=== PATIENT | female | born 1995 | race Caucasian/White ===

== ENCOUNTER → 2019-02-20 | Outpatient (REF) | payer MEDICAID ==
[2019-02-20 18:29] LABS: ALBUMIN 3.7 GM/DL (3.2-5.2); ALT/SGPT 30 U/L (12-78); BILIRUBIN,TOTAL 0.6 MG/DL (0.2-1.0); BLOOD UREA NITROGEN 10 MG/DL (7-18); CALCIUM LEVEL 8.9 MG/DL (8.5-10.1); CARBON DIOXIDE LEVEL 26 MEQ/L (21-32); CHLORIDE LEVEL 106 MEQ/L (98-107); CHOLESTEROL LEVEL 121 MG/DL (<200); CHOLESTEROL RISK RATIO 2.372 (<5); CREATININE FOR GFR 0.51 MG/DL (0.55-1.30); FREE T4 1.06 NG/DL (0.76-1.46); GLOMERULAR FILTRATION RATE > 60.0 (>60); GLUCOSE, FASTING 84 MG/DL (70-100); HDL CHOLESTEROL 51 MG/DL (>40); LDL CHOLESTEROL 61 MG/DL (<100); NON-HDL-C 70 MG/DL; SODIUM LEVEL 137 MEQ/L (136-145); TOTAL 25(OH) VITAMIN D 20.9 NG/ML (30.0-100.0); TRIGLYCERIDES LEVEL 43 MG/DL (<150)
[2019-02-20 19:02] LABS: BASO % 0.5 % (0.0-1.0); EOS # 0.2 10^3/uL (0.0-0.5); EOS % 2.4 % (0.0-3.0); HEMOGLOBIN 10.6 g/dl (12.0-15.5); LYMPH % 31.3 % (24.0-44.0); MEAN CORPUSCULAR HEMOGLOBIN 23.3 pg (27.0-33.0); MEAN CORPUSCULAR HGB CONC 30.3 g/dl (32.0-36.5); MEAN CORPUSCULAR VOLUME 76.9 fl (80.0-96.0); MONO # 0.4 10^3/uL (0.0-0.8); MONO % 7.1 % (0.0-5.0); NEUTROPHILS # 3.6 10^3/uL (1.5-8.5); NEUTROPHILS % 58.4 % (36.0-66.0); PLATELET COUNT, AUTOMATED 345 10^3/uL (150-450); RED BLOOD COUNT 4.55 10^6/uL (4.00-5.40); WHITE BLOOD COUNT 6.2 10^3/uL (4.0-10.0)
[2019-02-20 19:09] LABS: HEMOGLOBIN A1c 4.9 %
== END ==
LOC: M LAB REF 16:35
PROVIDERS: ATTEND Nurse Practitioner Family
DX: Z13.9 Encounter for screening, unspecified (principal)

== ENCOUNTER → 2019-05-30 | Outpatient (REF) | payer OTHER, MEDICAID ==
[2019-05-30 20:05] LABS: BASO # 0.1 10^3/uL (0.0-0.2); BASO % 0.8 % (0.0-1.0); EOS # 0.4 10^3/uL (0.0-0.5); EOS % 5.2 % (0.0-3.0); HEMOGLOBIN 9.8 g/dl (12.0-15.5); LYMPH # 2.7 10^3/uL (1.5-5.0); LYMPH % 34.8 % (24.0-44.0); MEAN CORPUSCULAR HEMOGLOBIN 21.9 pg (27.0-33.0); MEAN CORPUSCULAR HGB CONC 29.7 g/dl (32.0-36.5); MEAN CORPUSCULAR VOLUME 73.7 fl (80.0-96.0); MONO # 0.7 10^3/uL (0.0-0.8); MONO % 8.5 % (0.0-5.0); NEUTROPHILS % 50.3 % (36.0-66.0); PLATELET COUNT, AUTOMATED 381 10^3/uL (150-450); RED BLOOD COUNT 4.48 10^6/uL (4.00-5.40); WHITE BLOOD COUNT 7.9 10^3/uL (4.0-10.0)
[2019-05-30 20:13] LABS: ALBUMIN 3.7 GM/DL (3.2-5.2); ALT/SGPT 30 U/L (12-78); BILIRUBIN,TOTAL 0.4 MG/DL (0.2-1.0); BLOOD UREA NITROGEN 12 MG/DL (7-18); CALCIUM LEVEL 8.8 MG/DL (8.5-10.1); CARBON DIOXIDE LEVEL 28 MEQ/L (21-32); CHLORIDE LEVEL 105 MEQ/L (98-107); CREATININE FOR GFR 0.59 MG/DL (0.55-1.30); FERRITIN 3 NG/ML (8-252); GLOMERULAR FILTRATION RATE > 60.0 (>60); GLUCOSE, FASTING 88 MG/DL (70-100); IRON (FE) 16 UG/DL (50-170); PERCENT SATURATION 3.4 % (13.2-45.0); POTASSIUM SERUM 3.8 MEQ/L (3.5-5.1); SODIUM LEVEL 138 MEQ/L (136-145); TOTAL IRON BINDING CAPACITY 469 UG/DL (250-450); TOTAL PROTEIN 7.5 GM/DL (6.4-8.2)
[2019-05-30 20:22] LABS: FOLATE 21.5 NG/ML; VITAMIN B12 LEVEL 504 PG/ML
== END ==
LOC: M LAB REF 19:11
PROVIDERS: ATTEND Nurse Practitioner Family
DX: Z13.9 Encounter for screening, unspecified (principal); N92.1 Excessive and frequent menstruation with irregular cycle; R11.0 Nausea; R42 Dizziness and giddiness; D50.0 Iron deficiency anemia secondary to blood loss (chronic); J45.909 Unspecified asthma, uncomplicated

== ENCOUNTER → 2019-09-19 | Outpatient (REF) | payer OTHER, SELFPAY ==
[2019-09-19 12:51] LABS: BASO # 0.1 10^3/uL (0.0-0.2); BASO % 0.9 % (0.0-1.0); EOS # 0.2 10^3/uL (0.0-0.5); EOS % 4.3 % (0.0-3.0); HEMATOCRIT 30.2 % (36.0-47.0); LYMPH % 36.1 % (24.0-44.0); MEAN CORPUSCULAR HEMOGLOBIN 21.6 pg (27.0-33.0); MEAN CORPUSCULAR HGB CONC 29.8 g/dl (32.0-36.5); MEAN CORPUSCULAR VOLUME 72.6 fl (80.0-96.0); MONO # 0.5 10^3/uL (0.0-0.8); MONO % 8.5 % (0.0-5.0); NEUTROPHILS # 2.8 10^3/uL (1.5-8.5); PLATELET COUNT, AUTOMATED 320 10^3/uL (150-450); RED BLOOD COUNT 4.16 10^6/uL (4.00-5.40); WHITE BLOOD COUNT 5.6 10^3/uL (4.0-10.0)
[2019-09-19 13:18] LABS: ALBUMIN 3.4 GM/DL (3.2-5.2); ALT/SGPT 29 U/L (12-78); BILIRUBIN,TOTAL 0.9 MG/DL (0.2-1.0); BLOOD UREA NITROGEN 12 MG/DL (7-18); CALCIUM LEVEL 8.4 MG/DL (8.5-10.1); CARBON DIOXIDE LEVEL 24 MEQ/L (21-32); CHLORIDE LEVEL 107 MEQ/L (98-107); FERRITIN 3 NG/ML (8-252); FOLATE 15.7 NG/ML; GLOMERULAR FILTRATION RATE > 60.0 (>60); GLUCOSE, FASTING 85 MG/DL (70-100); IRON (FE) 32 UG/DL (50-170); PERCENT SATURATION 6.5 % (13.2-45.0); POTASSIUM SERUM 3.8 MEQ/L (3.5-5.1); SODIUM LEVEL 139 MEQ/L (136-145); TOTAL IRON BINDING CAPACITY 495 UG/DL (250-450); TOTAL PROTEIN 7.3 GM/DL (6.4-8.2)
[2019-09-19 15:24] LABS: VITAMIN B12 LEVEL 498 PG/ML
== END ==
LOC: M LAB REF 11:36
PROVIDERS: ATTEND Nurse Practitioner Family
DX: D50.8 Other iron deficiency anemias (principal); N92.1 Excessive and frequent menstruation with irregular cycle; R42 Dizziness and giddiness; D50.0 Iron deficiency anemia secondary to blood loss (chronic); Z13.9 Encounter for screening, unspecified

== ENCOUNTER → 2019-10-13 | Outpatient (CLI) | payer OTHER ==
[~2019-10-13] MED LIST: CELE40TA PO
[2019-10-13 11:15] LABS: HEMATOCRIT 29.9 % (36.0-47.0); HEMOGLOBIN 8.8 g/dl (12.0-15.5); MEAN CORPUSCULAR HEMOGLOBIN 21.1 pg (27.0-33.0); MEAN CORPUSCULAR HGB CONC 29.4 g/dl (32.0-36.5); MEAN CORPUSCULAR VOLUME 71.5 fl (80.0-96.0); PLATELET COUNT, AUTOMATED 332 10^3/uL (150-450); RED BLOOD COUNT 4.18 10^6/uL (4.00-5.40)
== END ==
LOC: M PLALAB 09:36
PROVIDERS: ATTEND Obstetrics & Gynecology
DX: N93.9 Abnormal uterine and vaginal bleeding, unspecified (principal)

== ENCOUNTER → 2019-10-20 | Outpatient (CLI) | payer OTHER ==
--- NOTE | 2019-10-20 17:27 | REP ---
PELVIC SONOGRAPHY: HISTORY: Abnormal uterine bleeding. FINDINGS: Transabdominal and transvaginal scanning are performed. Uterine dimensions are mildly prominent measuring 8.1 x 5.5 x 6.4 cm. The uterus is retroverted. IUD is confirmed in good position on 3D acquisition. No focal uterine mass is seen. The visualized bladder muñoz are smooth. There is some fluid visible in the cul-de-sac. The right ovary measures 4.5 x 2.5 x 2.4 cm. It contains a 2.4 x 1.8 x 1.5 cm hypoechoic follicle cyst. The left ovary measures 2.9 x 2.0 x 1.8 cm. It has a normal appearance. Doppler flow is confirmed in both ovaries. Resistive indices are 0.56 on the right and 0.53 on the left. Visualized bladder muñoz are smooth. IMPRESSION: Retroverted retroflexed uterus. IUD in good position. 2.4 cm hypoechoic follicle cyst right ovary. There is some cul-de-sac fluid consistent with physiologic fluid.
== END ==
LOC: M WHC 13:05
PROVIDERS: ATTEND Obstetrics & Gynecology
DX: N93.9 Abnormal uterine and vaginal bleeding, unspecified (principal); N83.291 Other ovarian cyst, right side; Z97.5 Presence of (intrauterine) contraceptive device

== ENCOUNTER 2019-11-02 07:39 | Outpatient (CLI) | payer OTHER ==
[~2019-11-02] VITALS: Ht 154.9 cm; Wt 79.8 kg
[2019-11-02 07:48] VITALS: BP 106/51
[2019-11-02] MEDS ORDERED: IRON SUCROSE 200 MG in NS 100 ML OVER 1 HR IV ONE (08:00)
[2019-11-02 10:05] VITALS: BP 111/52
== END 2019-11-02 10:05 | disposition home or self-care (01) ==
LOC: M INFU 07:39
PROVIDERS: ATTEND Specialist
DX: D50.9 Iron deficiency anemia, unspecified (principal)
CPT/HCPCS: 96365; J1756

== ENCOUNTER → 2019-11-13 | Outpatient (CLI) | payer OTHER ==
--- NOTE | 2019-11-13 14:19 | REP ---
Clinical: Left wrist pain Technique: AP, lateral, bilateral oblique views left wrist . Findings: The carpal bones, surrounding osseous structures, soft tissues, and joint spaces are normal. There is no evidence for acute fracture or dislocation. No subcutaneous emphysema or radiodense foreign body. Impression: Normal left wrist series. No acute fracture or dislocation Electronically Signed by Diaz Do MD 11/13/2019 02:11 P
== END ==
LOC: M WUC 13:03
PROVIDERS: ATTEND Physician Assistant
DX: M25.532 Pain in left wrist (principal)

== ENCOUNTER → 2019-12-26 | Outpatient (REF) | payer OTHER ==
[2019-12-26 14:00] LABS: BASO % 0.7 % (0.0-1.0); EOS # 0.2 10^3/uL (0.0-0.5); EOS % 3.4 % (0.0-3.0); HEMATOCRIT 39.9 % (36.0-47.0); HEMOGLOBIN 12.8 g/dl (12.0-15.5); LYMPH # 1.8 10^3/uL (1.5-5.0); LYMPH % 31.2 % (24.0-44.0); MEAN CORPUSCULAR HEMOGLOBIN 26.8 pg (27.0-33.0); MEAN CORPUSCULAR HGB CONC 32.1 g/dl (32.0-36.5); MEAN CORPUSCULAR VOLUME 83.6 fl (80.0-96.0); MONO # 0.4 10^3/uL (0.0-0.8); MONO % 7.6 % (0.0-5.0); NEUTROPHILS # 3.3 10^3/uL (1.5-8.5); NEUTROPHILS % 56.8 % (36.0-66.0); PLATELET COUNT, AUTOMATED 313 10^3/uL (150-450); RED BLOOD COUNT 4.77 10^6/uL (4.00-5.40); WHITE BLOOD COUNT 5.8 10^3/uL (4.0-10.0)
[2019-12-26 14:02] LABS: ALBUMIN 3.5 GM/DL (3.2-5.2); ALT/SGPT 40 U/L (12-78); BILIRUBIN,TOTAL 0.9 MG/DL (0.2-1.0); BLOOD UREA NITROGEN 11 MG/DL (7-18); CARBON DIOXIDE LEVEL 27 MEQ/L (21-32); CHLORIDE LEVEL 105 MEQ/L (98-107); CREATININE FOR GFR 0.52 MG/DL (0.55-1.30); FERRITIN 43 NG/ML (8-252); GLOMERULAR FILTRATION RATE > 60.0 (>60); GLUCOSE, FASTING 86 MG/DL (70-100); IRON (FE) 120 UG/DL (50-170); POTASSIUM SERUM 3.9 MEQ/L (3.5-5.1); SODIUM LEVEL 139 MEQ/L (136-145); TOTAL PROTEIN 7.1 GM/DL (6.4-8.2)
[2019-12-26 14:06] LABS: VITAMIN B12 LEVEL 499 PG/ML
== END ==
LOC: M LAB REF 11:33
PROVIDERS: ATTEND Nurse Practitioner Family
DX: D50.8 Other iron deficiency anemias (principal); D50.0 Iron deficiency anemia secondary to blood loss (chronic); M25.561 Pain in right knee; Z13.9 Encounter for screening, unspecified

== ENCOUNTER 2020-02-11 13:08 | Emergency (ER) | payer MEDICAID, OTHER ==
[~2020-02-11] VITALS: Ht 154.9 cm; Wt 82.5 kg
[2020-02-11 13:53] LABS: BASO % 0.5 % (0.0-1.0); EOS # 0.4 10^3/uL (0.0-0.5); HEMATOCRIT 38.7 % (36.0-47.0); HEMOGLOBIN 12.5 g/dl (12.0-15.5); LYMPH # 1.6 10^3/uL (1.5-5.0); LYMPH % 19.7 % (24.0-44.0); MEAN CORPUSCULAR HEMOGLOBIN 28.4 pg (27.0-33.0); MEAN CORPUSCULAR HGB CONC 32.3 g/dl (32.0-36.5); MONO # 0.6 10^3/uL (0.0-0.8); MONO % 6.6 % (0.0-5.0); NEUTROPHILS # 5.6 10^3/uL (1.5-8.5); NEUTROPHILS % 67.7 % (36.0-66.0); PLATELET COUNT, AUTOMATED 267 10^3/uL (150-450); WHITE BLOOD COUNT 8.3 10^3/uL (4.0-10.0)
[2020-02-11 14:16] LABS: ALBUMIN 3.4 GM/DL (3.2-5.2); ALT/SGPT 30 U/L (12-78); BILIRUBIN,DIRECT 0.2 MG/DL (0.0-0.2); BILIRUBIN,TOTAL 0.8 MG/DL (0.2-1.0); BLOOD UREA NITROGEN 13 MG/DL (7-18); CALCIUM LEVEL 8.1 MG/DL (8.5-10.1); CARBON DIOXIDE LEVEL 27 MEQ/L (21-32); CHLORIDE LEVEL 108 MEQ/L (98-107); CREATININE FOR GFR 0.53 MG/DL (0.55-1.30); GLOMERULAR FILTRATION RATE > 60.0 (>60); GLUCOSE, FASTING 95 MG/DL (70-100); LIPASE 78 U/L (73-393); POTASSIUM SERUM 3.7 MEQ/L (3.5-5.1); SODIUM LEVEL 140 MEQ/L (136-145)
--- NOTE | 2020-02-11 15:27 | REPVR ---
PROCEDURE INFORMATION: Exam: US Pelvis Complete, Transabdominal and US Pelvis, Transvaginal Exam date and time: 02/11/2020 3:00 PM Age: 25 years old Clinical indication: Pelvic pain; Additional info: Rlq pain x1 month R/O ovarian cyst TECHNIQUE: Imaging protocol: Real-time transabdominal and transvaginal pelvic ultrasound (complete) with image documentation. Transvaginal imaging was used for better evaluation of the endometrium, adnexa, and/or cervix. COMPARISON: PELVIS NON-OB COMPLETE US 10/20/2019 1:27 PM FINDINGS: Uterus/cervix: The uterus is not seen as a separate structure. Endovaginally, the uterus is retroverted and retroflexed. Endovaginally, the uterus measures 8.6 x 4.6 by 6.2 centimetres. An IUD is present within the uterus. The endometrial stripe measures 0.8 cm in thickness. Right adnexa: Transabdominally, the right ovary is not seen as a separate structure. Endovaginally, the right ovary measures 3.1 by 4.4 x 2.4 cm and contains a simple follicle which measures 1.9 by 2.4 by 1.8 cmin maximum diameter (previous complex follicle measuring 2.3 x 1.5 x 1.8 cm). There are multiple subcentimeter peripheral follicles. Arterial blood flow demonstrated in the right ovary on pulse Doppler examination. Left adnexa: Transabdominally, the left ovary is not seen as a separate structure. Endovaginally, the left ovary measures 3.5 x 1.7 by 3 cm. Subcentimeter follicles are present in the left ovary. Arterial blood flow demonstrated in the left ovary on pulse Doppler examination. Intraperitoneal space: Small amount of free fluid noted in the posterior cul-de-sac and adjacent to the right ovary. Urinary bladder: Transabdominally, the bladder is poorly distended. IMPRESSION: 1. Simple follicle in the right ovary. The echoes noted within a follicular cyst identified 10/20/2019 are not demonstrated on this examination. I am uncertain whether this represents the same follicular cyst or a new cyst. In any event, no suspicious findings on today's examination. Electronically signed by: Leandra Larson On 02/11/2020 15:27:08 PM
[2020-02-11 15:48] VITALS: BP 117/57
== END 2020-02-11 15:58 | disposition home or self-care (01) ==
LOC: M ED 13:08
DX: R10.31 Right lower quadrant pain (principal); N83.01 Follicular cyst of right ovary; J45.909 Unspecified asthma, uncomplicated; K21.9 Gastro-esophageal reflux disease without esophagitis; E16.2 Hypoglycemia, unspecified; Z97.5 Presence of (intrauterine) contraceptive device

== ENCOUNTER → 2020-04-09 | Outpatient (CLI) | payer OTHER ==
--- NOTE | 2020-04-09 16:26 | REP ---
INDICATION: N83.201 RIGHT OVARIAN CYST. COMPARISON: None. TECHNIQUE: Transabdominal and transvaginal scanning performed. FINDINGS: Uterine dimensions are 9.2 x 5.4 x 6.3 cm. Endometrial echo is obscured by an intrauterine device located in the endometrial canal centrally. The uterus is retroverted. The bladder measures approximately 4.7 x 1.4 cm. The right ovary has dimensions of 3.6 x 1.8 x 2.8 cm. The left ovary dimensions are 3.2 x 1.7 x 1.9 cm. Blood flow is seen in each ovary with duplex Doppler evaluation, with no torsion. Complex cystic structure in the right ovary probably represents a complex dominant follicle 2.3 x 2.1 x 1.7 cm. There is no adnexal mass identified. No free fluid is seen in the cul-de-sac. IMPRESSION: IUD centrally located in the endometrial canal. <Electronically signed by Max Blanco > 04/09/20 [id number]
== END ==
LOC: M WHC 15:31
PROVIDERS: ATTEND Obstetrics & Gynecology
DX: N83.201 Unspecified ovarian cyst, right side (principal); Z97.5 Presence of (intrauterine) contraceptive device

== ENCOUNTER 2020-05-22 12:41 | Emergency (ER) | payer MEDICAID, OTHER ==
[~2020-05-22] VITALS: Ht 154.9 cm; Wt 84.1 kg
--- OUTSIDE RECORDS SUMMARY | 2020-05-22 12:50 | CCD | Continuity of Care Document ---
Author Author Meet WILLSON P.AJannette Organization Unknown Address [address] [place] [address] Phone [phone] Care Team Providers Care Custom Decorating Consultant Name Role Phone India Dawson Minerva COMERP AUTM Johnny Powell RPA-C AUTM [phone] Problems Description No Information Available Social History Type Date Description Comments Sex Unknown ETOH Use Denies alcohol use Tobacco Use Start: Unknown Denies Smoking Smoking Status Reviewed: 12/08/19 Denies Smoking Allergies, Adverse Reactions, Alerts Description No Information Available Medications Description No Information Available Immunizations Description No Information Available Vital Signs Date Vital Result Comment 10/06/2019 3:44pm Body Temperature 97.5 F Height 61 inches 5'1" Weight 168.00 lb BMI (Body Mass Index) 31.7 kg/m2 Results Description No Information Available Procedures Date Code Description Status 02/13/2020 60263 MRI Upper Extremity Any Joint Co mpleted 11/15/2019 21155 Apply Cast Short Arm Completed 10/13/2019 52539 MRI Lower Extremity Any Joint Co mpleted Medical Devices Description No Information Available Encounters Type Date Location Provider Dx Diagnosis Office Visit 04/01/2020 3:45p Fely Whitmore S83.421D Sprain of lateral collateral ligament of right knee, subs Office Visit 03/27/2020 2:15p Fely Whitmore M65.4 Radial styloid tenosynovitis [de Quervain] Office Visit 02/01/2020 3:30p Fely Whitmore M65.4 Radial styloid tenosynovitis [de Quervain] Office Visit 01/03/2020 1:15p [facility] M65.4 Radial styloid tenosynovitis [de Quervain] Office Visit 12/13/2019 10:45a [facility] M65.4 Radial styloid tenosynovitis [de Quervain] Office Visit 12/08/2019 3:00p Shivani Kirkpatrick MD S83. 421A Sprain of lateral collateral ligament of right knee, init Office Visit 11/15/2019 10:45a [place] M65.4 Radial styloid tenosynovitis [de Quervain] Assessments Date Code Description Provider 04/01/2020 S83.421D Sprain of lateral co llateral ligament of right knee, subsequent encounter Griffin Willson, P.A. 03/27/2020 M65.4 Radial styloid tenosynovitis [de Quervain] Griffin Willson, P.A. 02/13/2020 M65.4 Radial styloid tenosynovitis [de Quervain] Griffin Willson, P.A. 02/13/2020 M65.4 Radial styloid tenosynovitis [de Quervain] MRI 02/01/2020 M65.4 Radial styloid tenosynovitis [de Quervain] Griffin Willson, P.A. 01/03/2020 M65.4 Radial styloid tenosynovitis [de Quervain] Griffin Willson, P.A. 12/13/2019 M65.4 Radial styloid tenosynovitis [de Quervain] Griffin Willson, P.A. 12/13/2019 M65.4 Radial styloid tenosynovitis [de Quervain] Griffin Willson, P.A. 12/08/2019 S83.421A Sprain of lateral co llateral ligament of right knee, initial encounter Edwin Kirkpatrick MD 11/15/2019 M65.4 Radial styloid tenosynovitis [de Quervain] Griffin Willson, PJannetteA. 10/13/2019 M25.561 Pain in right knee Edwin harris MD 10/13/2019 M25.561 Pain in right knee MRI Plan of Treatment Future Appointment(s):* 05/08/2020 8:45 am - Fely García at [place] * 04/29/2020 10:15 am - Fely García at [place] 04/01/2020 - Bradley García.* S83.421D Sprain of lateral collateral ligament of right knee, subsequent encounter* Follow up:* prn Functional Status Description No Information Available Mental Status Description No Information Available Referrals Refer to Reason for Referral Status Appt Date Griffin Willson PA MRI APPROVED PER [facility] WEB FOR MRI OF LEFT WRIST (08209) TO MRI. DG Created [facility] [place] [address] [phone] Griffin Willson PA Created [address] [place] [address] [phone] Griffin Willson PA authorization for left wrist physical therapy evaluation [phone], patient coming here. Passed to PT Dept. AC Created [facility] [place] [address] [phone] Griffin Willson PA physical therapy authorizati on for left knee and left wrist. Patient coming here. AC Created [facility] [place] [address] [phone] Griffin Willson PA authorization for physical t herapy evaluation [phone], Left knee. Patient coming here, passed to PT Dept. AC Created [address] [place] [address] [phone] Edwin Kirkpatrick MD MRI RIGHT KNEE AUTH PER WEB, PASSING TO XRAY TRACKER. LM Created [facility] [address] [place] [id number] [phone]
--- OUTSIDE RECORDS SUMMARY | 2020-05-22 12:50 | CCD ---
Continuity of Care Document (CCD) Created on: 04/05/2020 Meet King External Reference #: [id number] : 1995 Sex: Female Author Author Meet WILLSON P.A. Organization Unknown Address [address] [place] [address] Phone [phone] Care Team Providers Care Technician'S Helper Name Role Phone Samir India Minerva COMERP AUTM Johnny Powell RPA-C AUTM [phone] Problems Description No Information Available Social History [...] Available Procedures Date Code Description Status 02/13/2020 76454 MRI Upper Extremity Any Joint Co mpleted 11/15/2019 20895 Apply Cast Short Arm Completed 10/13/2019 88764 MRI Lower Extremity Any Joint Co mpleted 10/06/2019 04063 X-Ray Knee Complete W/Obliques & Tunnel And/Or Standing Views Completed Medical Devices Description No Information Available Encounters Type Date Location Provider Dx Diagnosis Office Visit 03/27/2020 2:15p Fely Whitmore M65.4 Radial styloid tenosynovitis [de Quervain] Office Visit 02/01/2020 3:30p Fely Whitmore M65.4 Radial styloid tenosynovitis [de Quervain] Office Visit 01/03/2020 1:15p [place] M65.4 Radial styloid tenosynovitis [de Quervain] Office Visit 12/13/2019 10:45a Nick Whitmore.A. M65.4 Radial styloid tenosynovitis [de Quervain] Office Visit 12/08/2019 3:00p Shivani Kirkpatrick MD S83. 422A Sprain of lateral collateral ligament of left knee, init Office Visit 11/15/2019 10:45a [place] M65.4 Radial styloid tenosynovitis [de Quervain] Office Visit 10/06/2019 3:15p Shivani Kirkpatrick MD M25. 561 Pain in right knee Assessments Date Code Description Provider 04/01/2020 S83.422D Sprain of lateral co llateral ligament of left knee, subsequent encounter Griffin Willson, P.A. 03/27/2020 [...] tenosynovitis [de Quervain] Griffin Willson, P.A. 12/08/2019 S83.422A Sprain of lateral co llateral ligament of left knee, initial encounter Edwin Kirkpatrick MD 11/15/2019 M65.4 Radial styloid tenosynovitis [de Quervain] Fely García 10/13/2019 M25.561 Pain in right knee Edwin harris MD 10/13/2019 M25.561 Pain in right knee MRI 10/06/2019 M25.561 Pain in right knee Edwin harris MD Plan of Treatment Future Appointment(s):* 05/08/2020 8:45 am - Fely García at [place] * 04/29/2020 10:15 am - Fely García at [place] 04/01/2020 - Fely García* S83.422D Sprain of lateral collateral ligament of left knee, subsequent encounter* Follow up:* prn Functional Status Description No Information Available Mental Status Description No Information Available Referrals Refer to Dr Reason for Referral Status Appt Date Griffin Willson PA MRI APPROVED PER [facility] WEB FOR MRI OF LEFT WRIST (42897) TO MRI. DG Created [facility] [place] [address] [phone] Griffin Willson PA Created [address] [place] [address] [phone] Griffin Willson PA authorization for left wrist physical therapy evaluation [phone], patient coming here. Passed to PT Dept. AC Created [facility] [place] [address] [phone] Griffin Willson PA physical therapy authorizati on for left knee and left wrist. Patient coming here. AC Created [facility] [place] [address] [phone] Griffin Willson PA authorization for physical t herapy evaluation [phone], Left knee. Patient coming here, passed to PT Dept. AC Created [facility] [place] [address] [phone] Edwin Kirkpatrick MD MRI RIGHT KNEE AUTH PER WEB, PASSING TO XRAY TRACKER. LM Created [address] [facility] [id number] [phone]
--- OUTSIDE RECORDS SUMMARY | 2020-05-22 12:50 | CCD ---
Author Author [facility] Organization [facility] Address Unknown Phone Unavailable Care Team Providers Care Educational Audiologist Name Role Phone Robi Barnes Unavailable PROBLEMS Type Condition ICD9-CM Code VLI12-ES Code Onset Dates Condition S tatus SNOMED Code Notes Problem Abnormal uterine bleeding (AUB) N93.9 Active [id number] ALLERGIES No Known Allergies ENCOUNTERS from 1993 to 2020-04-17 Encounter Location Date Provider Diagnosis [facility] [address] [place] [id number] Mar, Robi Barnes Right ovarian cyst N 83.201 and Pelvic pain R10.2 IMMUNIZATIONS No Information SOCIAL HISTORY Tobacco Use: Social History Observation Description Date Details (start date - stop date) Never Smoker Sex Assigned At : Social History Observation Description Sex Assigned At Unknown Language: Question Answer Notes Languages spoken: Both Thai and Bengali Alcohol Screening: Question Answer Notes Did you have a drink containing alcohol in the past year? Ye s Points 1 Interpretation Negative How often did you have six or more drinks on one occas ion in the past year? Never (0 points) How many drinks did you have on a typica l day when you were drinking in the past year? 1 or 2 (0 points) How often did you have a drink containing alcohol in t he past year? Monthly or less (1 point) Tobacco Use: Question Answer Notes Are you a: never smoker REASON FOR REFERRAL No Information VITAL SIGNS Weight 185.8 lbs Mar, Weight-kg 84.28 kg Mar, Height 61 in Mar, BMI 35.1 kg/m2 Mar, Blood pressure systolic 116 mm Hg Mar, Blood pressure diastolic 72 mm Hg Mar, MEDICATIONS Medication SIG (Take, Route, Frequency, Duration) Notes Start Da te End Date Status Paragard Intrauterine Copper - as directed Intrauterine Not-Taking Citalopram Hydrobromide 20 MG 1 tablet Orally Once a day Active TraZODone HCl 50 MG 1 tablet at bedtime as needed Orally Once a day Active Ibuprofen 800 MG 1 tablet with food or milk as needed Ora lly Three times a day Mar, Active Ultram 50 MG 1 tablet as needed Orally BID PRN Mar, 0 Active Mirena (52 MG) 20 MCG/24HR as directed Intrauterine Active PROCEDURES No Information RESULTS No Results REASON FOR VISIT FOLLOW UP MEDICAL (GENERAL) HISTORY Type Description Date Medical History asthma Medical History anemia Medical History tendonitis Medical History anxiety Surgical History Hospitalization History childbirth Goals Section No Information Health Concerns No Information MEDICAL EQUIPMENT No Information MENTAL STATUS No Information FUNCTIONAL STATUS No Information ASSESSMENTS Encounter Date Diagnosis Assessment Notes Treatment Notes Treatm ent Clinical Notes Mar, Right ovarian cyst (ICD-10 - N83.201) Recommend expectant management for now. Interval change/decrease in right ovarian cyst size compared to previous. Ibuprofen and Tramadol for pain control PRN. Risk of malignancy is low and this was reviewed with patient to offer some reassurance. Mar, Pelvic pain (ICD-10 - R10.2) PLAN OF TREATMENT Medication Medication Name Sig Start Date Stop Date Ibuprofen 800 MG 1 tablet with food or milk as needed Ora lly Three times a day Mar, Ultram 50 MG 1 tablet as needed Orally BID PRN Mar, Treatment Notes Assessment Notes Clinical Notes Right ovarian cyst Recommend expectant management for now. Interval change/decrease in right ovarian cyst size compared to previous. Ibuprofen and Tramadol for pain control PRN. Risk of malignancy is low and this was reviewed with patient to offer some reassurance. Next Appt Details Provider Name:Kayy Montana, 2020-06-12 01:40:00 PM, [address] [place], [address], Insurance Providers Payer Name Payer Address Payer Phone Insured Name Patient Relati onship to Insured Coverage Start Date Coverage End Date [facility] COMMUNITY PLAN [employer] [address] [facility] [phone] SAAD LEIGH self
--- OUTSIDE RECORDS SUMMARY | 2020-05-22 12:50 | CCD | Continuity of Care Document ---
Author Author Meet WILLSON P.A. Organization Unknown Address [address] [place] [address] Phone [phone] Care Team Providers Care Plastic Parts Fabricator Name Role Phone India Dawson Minerva COMERP AUTM Johnny Powell RPA-C AUTM [phone] Problems Description No Information Available Social History [...] Available Procedures Date Code Description Status 02/13/2020 11006 MRI Upper Extremity Any Joint Co mpleted 11/15/2019 65285 Apply Cast Short Arm Completed 10/13/2019 60665 MRI Lower Extremity Any Joint Co mpleted 10/06/2019 11516 X-Ray Knee Complete W/Obliques & Tunnel And/Or Standing Views Completed Medical Devices Description No Information Available Encounters Type Date Location Provider Dx Diagnosis Office Visit 02/01/2020 3:30p Fely Whitmore M65.4 Radial styloid tenosynovitis [de Quervain] Office Visit 01/03/2020 1:15p Fely Whitmore M65.4 Radial styloid tenosynovitis [de Quervain] Office Visit 12/13/2019 10:45a [facility]. M65.4 Radial styloid tenosynovitis [de Quervain] Office Visit 12/08/2019 3:00p Shivani Kirkpatrick MD S83. 422A Sprain of lateral collateral ligament of left knee, init Office Visit 11/15/2019 10:45a [facility] P.A. M65.4 Radial styloid tenosynovitis [de Quervain] Office Visit 10/06/2019 3:15p Shivani Kirkpatrick MD M25. 561 Pain in right knee Assessments Date Code Description Provider 03/27/2020 M65.4 Radial styloid tenosynovitis [de Quervain] [...] styloid tenosynovitis [de Quervain] Griffin Willson, P.A. 10/13/2019 M25.561 Pain in right knee Edwin harris MD 10/13/2019 M25.561 Pain in right knee MRI 10/06/2019 M25.561 Pain in right knee Edwin harris MD Plan of Treatment Future Appointment(s):* 04/01/2020 3:45 pm - Fely García at [facility] 03/27/2020 - Fely García* M65.4 Radial styloid tenosynovitis [de Quervain]* Follow up:* in 4-5 weeks for lt wrist recheck Functional Status Description No Information Available Mental Status Description No Information Available Referrals Refer to Dr Reason for Referral Status Appt Date Griffin Willson PA MRI APPROVED PER [facility] WEB FOR MRI OF LEFT WRIST (82234) TO MRI. DG Created [facility] [place] [address] [phone] Griffin Willson PA Created [address] [place] [address] [phone] Griffin Willson PA authorization for left wrist physical therapy evaluation [phone], patient coming here. Passed to PT Dept. AC Created [address] [place] [address] [phone] Griffin Willson PA physical therapy authorizati on for left knee and left wrist. Patient coming here. AC Created [facility] [place] [address] [phone] Griffin Willson PA authorization for physical t herapy evaluation [phone], Left knee. Patient coming here, passed to PT Dept. AC Created [address] [place] [address] [phone] Edwin Kirkpatrick MD MRI RIGHT KNEE AUTH PER WEB, PASSING TO XRAY TRACKER. LM Created [facility] [place] [address] [phone]
--- OUTSIDE RECORDS SUMMARY | 2020-05-22 12:50 | CCD ---
Author Author [facility] Organization [facility] Address Unknown Phone Unavailable Care Team Providers Care Coremaker Name Role Phone Barnes, Robi Unavailable PROBLEMS Type Condition ICD9-CM Code [id number] Code Onset Dates Condition S tatus SNOMED Code Notes Problem Abnormal uterine bleeding (AUB) N93.9 Active [id number] ALLERGIES No Known Allergies ENCOUNTERS from 1993 to 2020-03-12 Encounter Location Date Provider Diagnosis [facility] [address] [place] [phone] Feb, Robi Barnes Right ovarian cyst N 83.201 IMMUNIZATIONS No Information SOCIAL HISTORY Tobacco Use: Social History Observation Description Date Details (start date - stop date) Never Smoker Sex Assigned At : Social History Observation Description Sex Assigned At Unknown Alcohol Screening: Question Answer Notes Did you [...] FOR REFERRAL No Information VITAL SIGNS Weight 183.8 lbs Feb, Height 61 in Feb, BMI 34.72 kg/m2 Feb, Blood pressure systolic 118 mm Hg Feb, Blood pressure diastolic 74 mm Hg Feb, MEDICATIONS Medication SIG (Take, Route, Frequency, Duration) Notes Start Da te End Date Status Mirena (52 MG) 20 MCG/24HR as directed Intrauterine Active Paragard Intrauterine Copper - as directed Intrauterine Not-Taking PROCEDURES No Information RESULTS No Results REASON FOR VISIT OVARIAN CYST MEDICAL (GENERAL) HISTORY Type Description Date Medical History asthma Medical History anemia Medical History tendonitis Surgical History Hospitalization History childbirth Goals Section No Information Health Concerns No Information MEDICAL EQUIPMENT No Information MENTAL STATUS No Information FUNCTIONAL STATUS No Information ASSESSMENTS Encounter Date Diagnosis Assessment Notes Treatment Notes Treatm ent Clinical Notes Feb, Right ovarian cyst (ICD-10 - N83.201) Plan is to continue with expectant management. Pelvic US overall unremarkable and consistent with benign cyst / follicle. Repeat US ordered (8 weeks from previous) PLAN OF TREATMENT Treatment Notes Assessment Notes Clinical Notes Right ovarian cyst Plan is to continue with expectant management. Pelvic US overall unremarkable and consistent with benign cyst / follicle. Repeat US ordered (8 weeks from previous) Treatment Notes Test Name Order Date [facility] Pelvis non-OB COMPLETE US 2020-03-12 Next Appt Details Provider Name:Robi Barnes, 11:20:00 AM, [address] [place], [address], Insurance Providers Payer Name Payer Address Payer Phone Insured Name Patient Relati onship to Insured Coverage Start Date Coverage End Date [facility] COMMUN[facility] PLAN [facility] [address] [facility] [phone] SAAD LEIGH self
--- OUTSIDE RECORDS SUMMARY | 2020-05-22 12:50 | CCD | Continuity of Care Document ---
Author Author Meet MAYES Organization Unknown Address [address] [place] [address], [address] [address] Phone [phone] Care Team Providers Care Director Talent Acquisition Name Role Phone India Dawson Minerva COMERP AUTM Johnny Powell RPA-C AUTM [phone] Problems Description No Information Available Social History [...] Available Procedures Date Code Description Status 02/13/2020 21195 MRI Upper Extremity Any Joint Co mpleted 11/15/2019 45515 Apply Cast Short Arm Completed 10/13/2019 14033 MRI Lower Extremity Any Joint Co mpleted 10/06/2019 83543 X-Ray Knee Complete W/Obliques & Tunnel And/Or Standing Views Completed Medical Devices Description No Information Available Encounters Type Date Location Provider Dx Diagnosis Office Visit 02/01/2020 3:30p Fely Whitmore M65.4 Radial styloid tenosynovitis [de Quervain] Office Visit 01/03/2020 1:15p Fely Whitmore M65.4 Radial styloid tenosynovitis [de Quervain] [facility] M[facility] Radial styloid tenosynovitis [de Qu[facility]] Office Visit 12/08/2019 3:00p Shivani Kirkpatrick MD S83. 422A Sprain of lateral collateral ligament of left knee, init Office Visit 11/15[facility]2019 10[facility] M65.4 Radial styloid tenosynovitis [de Quervain] Office Visit 10/06/2019 3:15p Shivani Kirkpatrick MD M25. 561 Pain in right knee Assessments Date Code Description Provider 02/13/2020 M65.4 Radial styloid tenosynovitis [de Quervain] [...] harris MD Plan of Treatment Future Appointment(s):* 03/27/2020 2:15 pm - Griffin Willson, P.A. at [facility] 02/01/2020 - Fely García* M65.4 Radial styloid tenosynovitis [de Quervain]* Follow up:* [facility] BOOK IT with left wrist mri results with [facility] Functional Status Description No Information Available Mental Status Description No Information Available Referrals Refer to Dr Reason for Referral Status Appt Date Griffin Willson PA MRI APPROVED PER [facility] FOR MRI OF LEFT WRIST (44816) TO MRI. DG Created [facility] [place] [address] [phone] Griffin Willson PA Created [address] [place] [address] [phone] Griffin Willson PA authorization for left wrist physical therapy evaluation [phone] [id number], patient coming here. Passed to PT Dept. AC Created [facility] [place] [address] [phone] Griffin Willson PA physical therapy authorizati on for left knee and left wrist. Patient coming here. AC Created [address] [place] [address] [phone] Griffin Willson PA authorization for physical t herapy evaluation [phone] [phone] [id number], Left knee. Patient coming here, passed to PT Dept. AC Created [address] [place] [address] [phone] Edwin Kirkpatrick MD MRI RIGHT KNEE AUTH PER WEB, PASSING TO XRAY TRACKER. LM Created [facility] [place] [address] [phone]
--- OUTSIDE RECORDS SUMMARY | 2020-05-22 12:51 | CCD ---
Author Author [facility] Organization [facility] Address Unknown Phone Unavailable Care Team Providers Care Hobbing Press Operator Name Role Phone MCELHERYOLA, DEENA PA Unavailable Unavailable MCELHERAN, DEENA PA Unavailable Unavailable MCELHERAN, DEENA PA Unavailable Unavailable MCELHERAN, DEENA PA Unavailable Unavailable MCELHERAN, DEENA PA Unavailable Unavailable MCELHERAN, DEENA PA Unavailable Unavailable MCELHERAN, DEENA PA Unavailable Unavailable MCELHERAN, DEENA PA Unavailable Unavailable MCELHERAN, DEENA PA Unavailable Unavailable MCELHERAN, DEENA PA Unavailable Unavailable MCELHERAN, DEENA PA Unavailable Unavailable MCELHERAN, DEENA PA Unavailable Unavailable MCELHERAN, DEENA PA Unavailable Unavailable MCELHERAN, DEENA PA Unavailable Unavailable MCELHERAN, DEENA PA Unavailable Unavailable MCELHERAN, DEENA PA Unavailable Unavailable MCELHERAN, DEENA PA Unavailable Unavailable MCELHERAN, DEENA PA Unavailable Unavailable MCELHERAN, DEENA PA Unavailable Unavailable MCELHERAN, DEENA PA Unavailable Unavailable MCELHERAN, DEENA PA Unavailable Unavailable MCELHERAN, DEENA PA Unavailable Unavailable MCELHERAN, DEENA PA Unavailable Unavailable MCELHERAN, DEENA PA Unavailable Unavailable MCELHERAN, DEENA PA Unavailable Unavailable MCELHERAN, DEENA PA Unavailable Unavailable MCELHERAN, DEENA PA Unavailable Unavailable MCELHERAN, DEENA PA Unavailable Unavailable Samir, A India CORPORATE LAW SPECIALIST Unavailable Unavailable [place], A India CORPORATE LAW SPECIALIST Unavailable Unavailable [place], A India CORPORATE LAW SPECIALIST Unavailable Unavailable [place], A [place] CORPORATE LAW SPECIALIST Unavailable Unavailable [place], A [place] CORPORATE LAW SPECIALIST Unavailable Unavailable [place], A [place] CORPORATE LAW SPECIALIST Unavailable Unavailable [place], A [place] CORPORATE LAW SPECIALIST Unavailable Unavailable [place], A [place] CORPORATE LAW SPECIALIST Unavailable Unavailable [place], A [place] CORPORATE LAW SPECIALIST Unavailable Unavailable [place], A [place] CORPORATE LAW SPECIALIST Unavailable Unavailable [place], A [place] CORPORATE LAW SPECIALIST Unavailable Unavailable [place], A [place] CORPORATE LAW SPECIALIST Unavailable Unavailable [place], A [place] CORPORATE LAW SPECIALIST Unavailable Unavailable [place], A [place] CORPORATE LAW SPECIALIST Unavailable Unavailable [place], A [place] CORPORATE LAW SPECIALIST Unavailable Unavailable [place], A [place] CORPORATE LAW SPECIALIST Unavailable Unavailable [place], A [place] CORPORATE LAW SPECIALIST Unavailable Unavailable [place], A [place] CORPORATE LAW SPECIALIST Unavailable Unavailable [place], A [place] CORPORATE LAW SPECIALIST Unavailable Unavailable [place], A [place] CORPORATE LAW SPECIALIST Unavailable Unavailable [place], A [place] CORPORATE LAW SPECIALIST Unavailable Unavailable [place], A [place] CORPORATE LAW SPECIALIST Unavailable Unavailable [place], A [place] CORPORATE LAW SPECIALIST Unavailable Unavailable [place], A [place] CORPORATE LAW SPECIALIST Unavailable Unavailable [place], A [place] CORPORATE LAW SPECIALIST Unavailable Unavailable [place], A [place] CORPORATE LAW SPECIALIST Unavailable Unavailable [place], A [place] CORPORATE LAW SPECIALIST Unavailable Unavailable ALEXANDER, DARNELL PA Unavailable Unavailable ALEXANDER, DARNELL PA Unavailable Unavailable ALEXANDER, DARNELL PA Unavailable Unavailable ALEXANDER, DARNELL PA Unavailable Unavailable ALEXANDER, DARNELL PA Unavailable Unavailable ALEXANDER, DARNELL PA Unavailable Unavailable ALEXANDER, DARNELL PA Unavailable Unavailable ALEXANDER, DARNELL PA Unavailable Unavailable ALEXANDER, DARNELL PA Unavailable Unavailable ALEXANDER, DARNELL PA Unavailable Unavailable ALEXANDER, DARNELL PA Unavailable Unavailable ALEXANDER, DARNELL PA Unavailable Unavailable ALEXANDER, DARNELL PA Unavailable Unavailable ALEXANDER, DARNELL PA Unavailable Unavailable ALEXANDER, DARNELL PA Unavailable Unavailable ALEXANDER, DARNELL PA Unavailable Unavailable ALEXANDER, DARNELL PA Unavailable Unavailable ALEXANDER, DARNELL PA Unavailable Unavailable ALEXANDER, DARNELL PA Unavailable Unavailable ALEXANDER, DARNELL PA Unavailable Unavailable ALEXANDER, DARNELL PA Unavailable Unavailable ALEXANDER, DARNELL PA Unavailable Unavailable ALEXANDER, DARNELL PA Unavailable Unavailable ALEXANDER, DARNELL PA Unavailable Unavailable ALEXANDER, DARNELL PA Unavailable Unavailable ALEXANDER, DARNELL PA Unavailable Unavailable ALEXANDER, DARNELL PA Unavailable Unavailable ALEXANDER, DARNELL PA Unavailable Unavailable ALEXANDER, DARNELL PA Unavailable Unavailable ALEXANDER, DARNELL PA Unavailable Unavailable ALEXANDER, DARNELL PA Unavailable Unavailable ALEXANDER, DARNELL PA Unavailable Unavailable ALEXANDER, DARNELL PA Unavailable Unavailable ALEXANDER, DARNELL PA Unavailable Unavailable ALEXANDER, DARNELL PA Unavailable Unavailable ALEXANDER, DARNELL PA Unavailable Unavailable ALEXANDER, DARNELL PA Unavailable Unavailable ALEXANDER, DARNELL PA Unavailable Unavailable Samir, India CORPORATE LAW SPECIALIST CORPORATE LAW SPECIALIST Unavailable Unavailable NICOLE SCOTT MD Unavailable Unavailable NICOLE SCOTT MD Unavailable Unavailable NICOLE SCOTT MD Unavailable Unavailable NICOLE SCOTT MD Unavailable Unavailable NICOLE SCOTT MD Unavailable Unavailable NICOLE SCOTT MD Unavailable Unavailable NICOLE SCOTT MD Unavailable Unavailable NICOLE SCOTT MD Unavailable Unavailable NICOLE SCOTT MD Unavailable Unavailable NICOLE SCOTT MD Unavailable Unavailable NICOLE SCOTT MD Unavailable Unavailable NICOLE SCOTT MD Unavailable Unavailable NICOLE SCOTT MD Unavailable Unavailable NICOLE SCOTT MD Unavailable Unavailable NICOLE SCOTT MD Unavailable Unavailable NICOLE SCOTT MD Unavailable Unavailable NICOLE SCOTT MD Unavailable Unavailable NICOLE SCOTT MD Unavailable Unavailable NICOLE SCOTT MD Unavailable Unavailable NICOLE SCOTT MD Unavailable Unavailable NICOLE SCOTT MD Unavailable Unavailable NICOLE SCOTT MD Unavailable Unavailable NICOLE SCOTT MD Unavailable Unavailable NICOLE SCOTT MD Unavailable Unavailable NICOLE SCOTT MD Unavailable Unavailable NICOLE SCOTT MD Unavailable Unavailable NICOLE SCOTT MD Unavailable Unavailable NICOLE SCOTT MD Unavailable Unavailable NICOLE SCOTT MD Unavailable Unavailable NICOLE SCOTT MD Unavailable Unavailable NICOLE SCOTT MD Unavailable Unavailable NICOLE SCOTT MD Unavailable Unavailable NICOLE SCOTT MD Unavailable Unavailable Samir, A [place] CORPORATE LAW SPECIALIST Unavailable Unavailable Samir, A [place] CORPORATE LAW SPECIALIST Unavailable Unavailable Samir, A [place] CORPORATE LAW SPECIALIST Unavailable Unavailable Samir, A [place] CORPORATE LAW SPECIALIST Unavailable Unavailable Samir, A [place] CORPORATE LAW SPECIALIST Unavailable Unavailable Samir, A [place] CORPORATE LAW SPECIALIST Unavailable Unavailable Samir, A [place] CORPORATE LAW SPECIALIST Unavailable Unavailable Samir, A [place] CORPORATE LAW SPECIALIST Unavailable Unavailable Samir, A [place] CORPORATE LAW SPECIALIST Unavailable Unavailable Samir, A [place] CORPORATE LAW SPECIALIST Unavailable Unavailable Samir, A [place] CORPORATE LAW SPECIALIST Unavailable Unavailable Samir, A [place] CORPORATE LAW SPECIALIST Unavailable Unavailable Samir, A [place] CORPORATE LAW SPECIALIST Unavailable Unavailable Samir, A [place] CORPORATE LAW SPECIALIST Unavailable Unavailable Samir, A [place] CORPORATE LAW SPECIALIST Unavailable Unavailable Samir, A [place] CORPORATE LAW SPECIALIST Unavailable Unavailable Samir, A [place] CORPORATE LAW SPECIALIST Unavailable Unavailable Samir, A [place] CORPORATE LAW SPECIALIST Unavailable Unavailable Samir, A [place] CORPORATE LAW SPECIALIST Unavailable Unavailable Samir, A [place] CORPORATE LAW SPECIALIST Unavailable Unavailable Samir, A [place] CORPORATE LAW SPECIALIST Unavailable Unavailable Samir, A [place] CORPORATE LAW SPECIALIST Unavailable Unavailable Samir, A [place] CORPORATE LAW SPECIALIST Unavailable Unavailable Samir, A [place] CORPORATE LAW SPECIALIST Unavailable Unavailable Samir, A [place] CORPORATE LAW SPECIALIST Unavailable Unavailable Samir, A [place] CORPORATE LAW SPECIALIST Unavailable Unavailable Samir, A [place] CORPORATE LAW SPECIALIST Unavailable Unavailable LETTIERE, A DEENA PA Unavailable Unavailable LETTIERE, A DEENA PA Unavailable Unavailable LETTIERE, A DEENA PA Unavailable Unavailable LETTIERE, A DEENA PA Unavailable Unavailable LETTIERE, A DEENA PA Unavailable Unavailable LETTIERE, A DEENA PA Unavailable Unavailable LETTIERE, A DEENA PA Unavailable Unavailable LETTIERE, A DEENA PA Unavailable Unavailable LETTIERE, A DEENA PA Unavailable Unavailable LETTIERE, A DEENA PA Unavailable Unavailable LETTIERE, A DEENA PA Unavailable Unavailable LETTIERE, A DEENA PA Unavailable Unavailable LETTIERE, A DEENA PA Unavailable Unavailable LETTIERE, A DEENA PA Unavailable Unavailable LETTIERE, A DEENA PA Unavailable Unavailable LETTIERE, A DEENA PA Unavailable Unavailable LETTIERE, A DEENA PA Unavailable Unavailable LETTIERE, A DEENA PA Unavailable Unavailable LETTIERE, A DEENA PA Unavailable Unavailable LETTIERE, A DEENA PA Unavailable Unavailable LETTIERE, A DEENA PA Unavailable Unavailable LETTIERE, A DEENA PA Unavailable Unavailable LETTIERE, A DEENA PA Unavailable Unavailable LETTIERE, A DEENA PA Unavailable Unavailable LETTIERE, A DEENA PA Unavailable Unavailable LETTIERE, A DEENA PA Unavailable Unavailable LETTIERE, A DEENA PA Unavailable Unavailable LETTIERE, A EDENA PA Unavailable Unavailable LETTIERE, A DEENA PA Unavailable Unavailable Re-disclosure Warning The records that you are about to access may contain information from federally-assisted alcohol or drug abuse programs. If such information is present, then the following federally mandated warning applies: This information has been disclosed to you from records protected by federal confidentiality rules (42 CFR part 2). The federal rules prohibit you from making any further disclosure of this information unless further disclosure is expressly permitted by the written consent of the person to whom it pertains or as otherwise permitted by 42 CFR part 2. A general authorization for the release of medical or other information is NOT sufficient for this purpose. The Federal rules restrict any use of the information to criminally investigate or prosecute any alcohol or drug abuse patient.The records that you are about to access may contain highly sensitive health information, the redisclosure of which is protected by Article 27-F of the [facility] Public Health law. If you continue you may have access to information: Regarding HIV / AIDS; Provided by facilities licensed or operated by the [facility] Office of Mental Health; or Provided by the [facility] Office for People With Developmental Disabilities. If such information is present, then the following [facility] mandated warning applies: This information has been disclosed to you from confidential records which are protected by state law. State law prohibits you from making any further disclosure of this information without the specific written consent of the person to whom it pertains, or as otherwise permitted by law. Any unauthorized further disclosure in violation of state law may result in a fine or snf sentence or both. A general authorization for the release of medical or other information is NOT sufficient authorization for further disc losure. Encounters Encounter Providers Location Date Indications Data Source(s ) Outpatient [address] [facility] [id number] 04/11/2020 12:00:00 AM EST eCW1 ([facility], [facility]–1983) Outpatient Attender: DEENA SALAZAR Physical Therapy 04/01/2020 02:45:00 PM EST MEDENT ([facility]) Outpatient Attender: DEENA SALAZAR Physical Therapy 03/27/2020 01:15:00 PM EST MEDENT ([facility]) Outpatient [address] [facility] [id number] 02/26/2020 12:00:00 AM EST eCW1 (Formerly [facility], [facility]1983) Outpatient Attender: STACI MAC 02/14/2020 03:49:00 P M EDT [facility] AWILDA VanceBC: [address] [place] [address], Ph. Attender: India SMALL [facility] Medical 02/14/2020 12:00:00 AM EDT SIMÓN ([facility]) Outpatient Attender: India SMALL 02/12/2020 03:3 4:02 PM EDT [facility] Outpatient Attender: STACI SMALL 02/12/2020 03:34:01 P M EDT [facility] Outpatient Attender: DEENA SALAZAR Physical Therapy 02/01/2020 03:30:00 PM EDT MEDENT ([facility]) Outpatient Attender: India SMALL 01/19/2020 06:1 9:02 AM EDT [facility] Outpatient Attender: STACI SMALL 01/14/2020 03:36:02 P M EDT [facility] Outpatient Attender: India SMALL 01/14/2020 03:3 6:01 PM EDT [facility] Outpatient Attender: STACI SMALL 01/14/2020 03:35:00 P M EDT [facility] Outpatient Attender: India SMALL 01/14/2020 03:3 5:00 PM EDT [facility] Outpatient Attender: STACI SMALL 01/03/2020 05:26:04 P M EDT [facility] Outpatient Attender: DEENA SALZAAR Physical Therapy 01/03/2020 01:15:00 PM EDT MED[facility] ([facility]) Outpatient Attender: STACI SMALL 01/02/2020 05:19:01 P M EDT [facility] Outpatient Attender: India SMALL 12/31/2019 02:4 8:01 PM EDT [facility] Outpatient Attender: STACI SMALL 12/25/2019 11:49:00 A M EDT [facility] Outpatient Attender: DEENA SALAZAR Physical Therapy 12/13/2019 10:45:00 AM EDT MED[facility] ([facility]) Office Visit Attender: NICOLE SCOTT MD Physical Therapy 03:00:00 PM EDT MED[facility] ([facility]) Outpatient Attender: STACI MAC 11/15/2019 11:42:00 A M EDT [facility] Outpatient Attender: DEENA SALAZAR Physical Therapy 11/15/2019 10:45:00 AM EDT MED[facility] ([facility]) (WC PROC) [facility] Procedure [address] [place] [address] 11/15/2019 12:00:00 AM EDT eCW1 ([facility]) Outpatient Attender: DARNELL Franciscoa ry 11/13/2019 01:20:00 PM EDT MED[facility] ([facility]) Outpatient [address] [facility] [id number] 10/11/2019 12:00:00 AM EDT eCW1 ([facility]) Outpatient Attender: NICOLE SCOTT MD Physical Therapy 03:15:00 PM EDT MED[facility] ([facility]) Outpatient Attender: STACI MAC 10/03/2019 07:59:52 P M EDT [facility] Outpatient Attender: STACI MAC 10/02/2019 09:00:06 A M EDT [facility] Outpatient Attender: India MAC 10/02/2019 08:5 8:59 AM EDT [facility] Outpatient Attender: STACI MAC 09/27/2019 11:03:00 A M EDT [facility] Outpatient Attender: STACI MAC 09/26/2019 05:01:01 P M EDT [facility] Outpatient Attender: India MAC 09/26/2019 05:0 1:00 PM EDT [facility] Outpatient Attender: STACI MAC 09/24/2019 11:31:02 P M EDT [facility] Outpatient Attender: India MAC 09/24/2019 11:3 1:01 PM EDT [facility] Outpatient Attender: STACI MAC 09/22/2019 08:36:00 A M EDT [facility] Outpatient Attender: STACI SMALL FP 09/19/2019 09:23:00 A M [facility] Outpatient Attender: STACI SMALL FP 09/19/2019 09:19:[address] [facility] Outpatient Attender: STACI COMERP FP 09/19/2019 09:18:[address] [facility] Outpatient Attender: STACI SMALL FP 09/14/2019 11:02:[address] [facility] Outpatient Attender: STACI COMERP FP 08/22/2019 07:56:[address] [facility] Outpatient Attender: STACI MSALL FP 07/03/2019 01:23:00 P [facility] Outpatient Attender: STACI SMALL FP 06/30/2019 09:09:01 A M [facility] Outpatient Attender: India SMALL FP 06/30/2019 09:0 9:00 AM [facility] Outpatient Attender: STACI COMERP FP 06/27/2019 09:34:01 A M [facility] Outpatient Attender: STACI COMERP FP 06/27/2019 08:45:01 A [facility] Outpatient Attender: STACI COMERP FP 06/27/2019 08:40:01 A M [facility] Outpatient Attender: STACI COMERP FP 06/26/2019 02:37:01 P [facility] Outpatient Attender: India SMALL FP 06/26/2019 02:3 6:02 PM [facility] Outpatient Attender: STACI COMERP FP 06/26/2019 02:34:00 P [facility] Outpatient Attender: DEENA galvez 06/09/2019 08:00:00 AM EST MEDENT ([facility]) Outpatient Attender: STACI COMERP FP 06/05/2019 10:12:00 A M [facility] Outpatient Attender: [place] SMALL FP 06/05/2019 05:5 7:02 AM [facility] Outpatient Attender: STACI COMERP FP 05/30/2019 04:50:[address] [facility] Outpatient Attender: STACI Dawson CORPORATE LAW SPECIALIST FP 05/30/2019 04:16:[address] [facility] Outpatient Attender: STACI Dawson CORPORATE LAW SPECIALIST FP 05/30/2019 04:15:[address] [facility] Outpatient Attender: STACI Dawson CORPORATE LAW SPECIALIST FP 05/30/2019 03:20:[address] [facility] Outpatient Attender: STACI Dawson CORPORATE LAW SPECIALIST FP 05/30/2019 03:19:00 P [facility] Outpatient Attender: STACI Dawson CORPORATE LAW SPECIALIST FP 03/29/2019 03:28:01 P [facility] Immunizations Vaccine Date Status Description Data Source(s) This CVX code allows reporting of a vacc ination when formulation is unknown (for example, when recording a Influenza vaccination when noted on a vaccination card) 05/30/2019 12:00:00 AM EST completed 05/30/2019 AUBREE Palma ([facility]) Medications Medication Brand Name Start Date Product Form Dose Route Admi nistrative Instructions Pharmacy Instructions Status Indications Reaction Description Data Source(s) Ibuprofen 800 MG Oral Tablet Ibuprofen 800 MG 04/11/2020 12:00:[address] active Ibuprofen 800 MG eCW1 ([facility]) tramadol hydrochloride 50 MG Oral Tablet [Ultram] Ultram 50 MG Ultram 50 MG 04/11/2020 12:00:00 AM EST 1.0 {tablet_as_needed} active Ultram 50 MG eCW1 ([facility]) Naproxen 500 MG Oral Tablet Naproxen 11/13/2019 12:00:00 AM EDT ORAL active MEDENT ([facility]) Oseltamivir 75 MG Oral Capsule Oseltamivir Phosphate 06/09/2019 12:00:00 AM EST ORAL completed [facility] ([facility]) cetirizine hydrochloride 10 MG Oral Tablet cetirizine 10 mg tablet cetirizine 10 mg tablet completed cetirizine hydrochloride 10 MG Oral Tablet SIMÓN ([facility]) Insurance Providers Payer name Policy type / Coverage type Policy ID Covered constitution party ID Covered constitution party's relationship to adame Policy Adame Plan Information [facility] [id number] [facility] COMM[facility] [id number] SP [id number] [facility] [id number] SP [id number] [facility] [id number] SP [id number] [facility] Essential Plan P [id number] S [id number] SELF PAY ONLY 0 SP 0 Self Pay P [id number] S [id number] MEDICAID [id number] SP [id number] [facility] [id number] SP [id number] [facility] [id number] SP [id number] Self Pay P UNAVAILABLE S UNAVAILA BLE [facility] Care [facility] Community Plan P [id number] S [id number] [facility] Care [facility] Community Plan P [id number] S [id number] Medicaid S [id number] S [id number] Medicaid P [id number] Problems, Conditions, and Diagnoses Code Display Name Description Problem Type Effective Dates Data Source(s) J30.2 Other seasonal allergic rhinitis Other seasonal allerg ic rhinitis 01/03/2020 05:24:17 PM EDT [facility] N93.9 [id number] Abnormal uterine bleeding (AUB) Problem 10/11/2019 12:00:00 AM EDT eCW1 ([facility]) V65.8 Person consulting for explanation of exa mination or test findings Person consulting for explanation of examination or test findings 10/02/2019 08:58:23 AM EDT [facility] [id number] Patient asked to attend Patient Asked to Attend Proble m 09/26/2019 12:00:00 AM EDT SIMÓN ([facility]) D50.8 Other iron deficiency anemias Other iron deficiency an emias 06/27/2019 09:33:57 AM EST [facility] [id number] Iron deficiency anemia secondary to inad equate dietary iron intake Iron Deficiency Anemia Secondary to Inadequate Dietary Iron Intake Problem 06/27/2019 12:00:00 AM EST SIMÓN ([facility]) 626.6 Excessive and frequent menstruation with irregular cycle Excessive and frequent menstruation with irregular cycle 05/30/2019 04:49: 19 PM EST [facility] 787.02 Nausea Nausea 05/30/2019 04:49:19 PM ES [facility] 780.4 Dizziness Dizziness 05/30/2019 04:49:19 PM RAJIV Morales [facility] 280.0 Anemia due to blood loss Anemia due to blood loss 05/30/2019 04:49:[address] [facility] [id number] Finding of regularity of menstrual cycle Finding of Regularity of Menstrual Cycle Problem 05/30/2019 12:00:00 AM CHLOE GR ([facility]) [id number] Nausea Nausea Problem 05/30/2019 12:00:00 AM RAJIV GR ([facility]) [id number] Dizziness and giddiness Dizziness and Giddiness Proble m 05/30/2019 12:00:00 AM CHLOE GR ([facility]) [id number] Anemia due to chronic blood loss Anemia Due to C hronic Blood Loss Problem 05/30/2019 12:00:00 AM CHLOE GR ([facility]) Surgeries/Procedures Procedure Description Date Indications Data Source(s) MRI Upper Extremity Any Joint 02/13/2020 12:00:00 AM E DT [facility] ([facility] ) APPLICATION CAST ELBOW FINGER SHORT ARM 11/15/2019 12: 00:00 AM EDT [facility] ([facility] ) URINE TEST 11/15/2019 12:00:00 AM EDT eCW1 ([facility]) Medication: Mirena 52 mg (Levonorgestrel -releasing intrauterine contraceptive system) 11/15/2019 12:00:00 AM EDT eCW1 ([facility]) MRI Lower Extremity Any Joint 10/13/2019 12:00:00 AM E DT [facility] ([facility] ) RADIOLOGIC EXAM KNEE COMPLETE 4/MORE VIEWS 10/06/2019 12:00:00 AM EDT [facility] ([facility] ) Results ID Date Data Source [id number] 05/09/2020 12:00:00 AM EST [facility] Name Value Range Interpretation Code Description Data Azul rce(s) Supporting Document(s) Carestart Rapid COVID Antigen Test Positive [facility] This lab was reported by [facility]. ID Date Data Source [id number] 03/27/2020 12:00:00 AM EST [facility] Name Value Range Interpretation Code Description Data Azul rce(s) Supporting Document(s) SARS coronavirus 2 RNA [Presence] in Res piratory specimen by CURTIS with probe detection [facility] This lab was ordered by [facility] and reported by [facility]. ID Date Data Source [id number] 02/11/2020 01:22:00 PM EDT [facility] Name Value Range Interpretation Code Description Data Azul rce(s) Supporting Document(s) HCT 38.7 % 36.0-47.0 N [facility] HGB 12.5 g/dL 12.0-15.5 N [facility] MCH 32.3 G/DL pg 32.0-36.5 N [facility] MCHC 28.4 PG % 27.0-33.0 N [facility] PLATELETS 267 10 10*3/mm3 150-450 N [facility] RBC 4.40 10 10*6/mm3 4.00-5.40 N [facility] RDW 13.0 % 11.5-14.5 N [facility] WBC TOTAL 8.3 4.0-10.0 N [facility] ID Date Data Source [id number] 02/11/2020 01:22:00 PM EDT [facility] Name Value Range Interpretation Code Description Data Azul rce(s) Supporting Document(s) BG FASTING 95 mg/dL 70-100 N [facility] ID Date Data Source [id number] 01/03/2020 04:02:56 PM EDT [facility] Measurements & CalculationsHeight: 62 inches (5 ft. 2 in.) 157.48 cm Weight: 180 pounds 81.82 kg Body Mass Index (BMI): 33.04BMI Interpretation: ObeseBody Surface Area (BSA): 1.83Weight Management Education Done (Nutrition/Physical Activity)Vital SignsTemperature: 98.6FPulse Rate: 85 beats/minuteRespiratory Rate: 14 respirations/minuteBlood Pressure: 101/70 O2 Saturation: 100% Vital Signs performed by: Jennifer Albrecht LPN, January 03, 2020 4:06 PMVital Signs performed by: Jennifer Albrecht LPN, January 03, 2020 4:06 PMInitial Intake Information From: patientRoom #: 13Infectious Disease / Travel ScreeningRecent travel for you or any close contacts? NoHave you had any close contact with anyone diagnosed with or under investigation for COVID-19 (coronavirus)? NoFever? NoRespiratory symptoms: cough, cold, congestion, shortness of breath, difficulty breathing? NoLoss of smell? NoLoss of taste? NoSmoking, Tobacco, Vap ing or Smoke Exposure StatusSmoke Status: never smokerTobacco Use: NoDo you vape? NoPassive Smoke Exposure: NoMenstrual HistoryAny possibility of ? NoComments: IUDHealthcare HistorySince your last office visit...Have you been admitted to the hospital? NoHave you been to an emergency room (ER) or urgent care clinic? NoHave you seen another healthcare provider? NoHave you seen a dentist? NoIntake performed by: Jennifer Albrecht LPN, January 03, 2020 4:44 PMRate Your HealthIn general, would you say your health is? GoodPain AssessmentAre you currently having any pain which... You would like your provider to address? No Affects your activity level? NoDepression Screening - PHQ-2Over the last two weeks, have you... Had little interest or pleasure in doing things? Not at all Been feeling down, depressed, or hopeless? Not at all PHQ-2 Score: 0Anxiety Screening - WILBERT-2Over the last two weeks, have you been... Feeling nervous, anxious, or on edge? Nearly every day Unable to stop or control worrying? Nearly every day WILBERT-2 Score: 6Food InsecurityWithin the past year...Did you worry whether your food would run out before you got money to buy more? Never trueWas there a time when the food you bought didn't last and you didn't have money to get more? Never trueGeneralized Anxiety Disorder 7-Item Screening (WILBERT-7)Answer Guide:0 = Not at all1 = Several days2 = Over half the days3 = Nearly every dayOver the last 2 weeks, how often have you been bothered by the following problems?Feeling nervous, anxious, or on edge: 3Not being able to stop or control worryinWorrying too much about different things: 2Trouble relaxinBeing so restless that it's hard to sit still: 1Becoming easily annoyed or irritable: 1Feeling afraid as if something awful might happen: 0Answer Guide:0 = Not difficult at all1 = Somewhat difficult2 = Very difficult3 = Extremely difficultHow difficult have these made it for you to do your work, take care of things at home, or get along with other people? 0GA D-7 Screening Results WILBERT-2 Score: 6GAD-7 Score: 12Functional Impairment: Not difficult at allRecommendation: Moderate anxietyScreening, Brief Intervention, & Referral to Treatment (SBIRT)Pre-Screening Questions How many times have you have 4 or more drinks in a day? 0How many times have you used an illegal drug or used a prescription medication for a non-medical reason? 0Performed by: Jennifer Albrecht LPN, January 03, 2020 4:46 PMPatient History Medical History:asthmaanemiaSurgical History: section x 1Family History:grandmother- stomach cancergrandfather- diabetesmom asthma, anermiasister- asthmaSocial/Personal History: Chief Complaintfollow-up visit lab results room 13History of Present Illness (HPI)24 YO female here for follow up visit and review of lab results. Pt states taking medications as prescribed.Pt states healthy diet and physical activities. Pt states concerns with seasonal allergy symptoms that have been ongoing for about three weeks. Pt states was seen by binding printer. HPI performed by: [place] SMALL, January 03, 2020 5:11 PMProblem ReviewProblem List was reviewed and/or updated during this visit.Medication Reconciliation & ReviewMedication List was reviewed and/or updated during this visit, including review of any rcde-emo-kuosqmi medications, herbal therapies, and/or supplements.Allergy ReviewAllergy List was reviewed and/or updated during this visit. Patient has no known allergies.Adult Preventive CareProvider Calculated and Reviewed all Clinical Protocols for patient today. Labs/Meds/Other Counseling-Nutrition and Physical Activity:BMI Interpretation: Obese (01/03/2020) Counseling: Done (01/03/2020) Physical Activity: Done (01/03/2020)Cancer Screening Pap Smear/HPV TestingReviewed: Previous Comments: Pt states she had one done in [place] in 2019 (09/26/2019)Today's Comments: Pt Reports was done in 2019Review of Systems General: Denies loss of appetite, chills, dizziness, fatigue, fever, continued fever, headache, feeling ill, sweats, night sweats, sleep disturbances, weight loss. Eyes: Denies blurring of vision, double vision, irritation, discharge, vision loss, eye pain, eye swelling, droopy eyelid, sensitivity to light, redness, itching. Ears/Nose/Throat: Complains of nasal congestion, runny nose. Denies earache, ear discharge, ringing in ears, decreased hearing, nosebleeds, sore throat, hoarseness, difficulty swallowing, dry mouth, tooth pain, bleeding gums, swollen glands. Cardiovascular: Denies chest pain, palpitations, feeling faint, trouble breathing w/exertion, SOB upon lying down, SOB at night, peripheral edema, elevated blood pressure, decreased heart rate. Respiratory: Denies cough, difficulty breathing, shortness of breath, excessive sputum, coughing up blood, wheezing, chest pain. Gastrointestinal: Denies nausea, vomiting, bleeding, burning, itching, irritation, cramps, diarrhea, constipation. Genitourinary: Denies urinary incontinence, pain with urination, burning with urination, urinary frequency, urinary hesitancy, urinary urgency, urinary urgency at night, incomplete emptying, blood in urine, pelvic pain. Musculoskeletal: Denies back pain, joint pain, leg pain, other pain-see comments, joint swelling, body aches, muscle aches, muscle cramps, muscle weakness, stiffness, recent injury. Skin: Denies rash, hives, redness, itching, dryness, nail changes, suspicious lesions, athlete's foot, rash on palms, rash on bottom of feet. Neurologic: Denies muscle impairment, weakness, numbness/tingling, seizures, slurred speech, feeling faint, tremors, vertigo, paralysis on one side, paralysis on both sides. Psychiatric: Denies depression, anxiety, memory loss, mental disturbance, suicidal ideation, homicidal ideation, hallucinations, paranoia, feeling stressed, hearing voices. Endocrine: Denies cold intolerance, heat intolerance, excessive thirst, excessive hunger, excessive urination, weight loss, weight gain. Physical ExamGeneral Appearance: well nourished, well hydrated, no acute distressEyes, External: conjunctivae and lids normal, EOMINasal: nasal congessionRespiratory, Auscultation: clear to auscultation bilaterally; no rales, rhonchi, or wheezesRespiratory, Effort: no intercostal retractions or use of accessory musclesCardiovascular, Auscultation: S1, S2 audible; no murmur, rub, or gallop; RRRPeripheral Circulation: no clubbing, cyanosis, edema, or varicositiesAbdomen: soft, non-tender, no masses, bowel sounds normalGait & Station: normalSkin, Inspection: no rashes, lesions, or ulcerationsOrientation: oriented to time, place, and personMood & Affect: no depression, anxiety, or agitationJudgment & Insight: intactRate Your HealthIn general, would you say your health is? GoodAssessment & Plan Problems:Added: Other seasonal allergic rhinitis (ICD10- J30.2) Assessment: Instructions: We have sent a prescription to your pharmacy today. please take medication as prescribed. Please report any major side effects.Assessed:Person consulting for explanation of examination or test f indings (ICD-V65.8) (JMZ24-G52.2) Assessment: Instructions: We have reviewed your lab results with you today.Please continue healthy diet and physical activities. Please try to maintain adequate intake of water .Other iron deficiency anemias (OBE99-X75.8) Assessment: Pt was seen and evaluated by binding printer. received IV iron infusion. Anemia improved. Instructions: Anemia improved. Please continue to follow with your specialist.Person consulting for explanation of examination or test findings (ICD-V65.8) (BSX77-T97.2) Assessment: Anemia improved.Patient Instructions/Care Plan: Person consulting for explanation of examination or test findings: We have reviewed your lab results with you today.Please continue healthy diet and physical activities. Please try to maintain adequate intake of water .Other seasonal allergic rhinitis: We have sent a prescription to your pharmacy today. please take medication as prescribed. Please report any major side effects.Other iron deficiency anemias: Anemia improved. Please continue to follow with your specialist. Plan developed in collaboration with patient and/or familyMedications:CETIRIZINE HCL 10 MG ORAL TABLETFLONASE ALLERGY RELIEF 50 MCG /ACT NASAL SUSPENSIONALBUTEROL SULFATE HFA 108 (90 BASE) MCG/ACT INHALATION AEROSOL SOLUTIONMedication Changes:New Prescription:FLONASE ALLERGY RELIEF 50 MCG/ACT NASAL SUSPENSION-one spary to each nostril twice daily as needed Qty: 1[Container] Refills: 1 Method: ElectronicCETIRIZINE HCL 10 MG ORAL TABLET- take one tablet by mouth daily Qty: 30[Tablet] Refills: 2 Method: ElectronicAllergies:No Known Allergies (updated 01/03/2020) Orders:Adult - Ofc Vst, EST, Level IV [CPT-05953] Follow-Up Return to clinic: 6-8 weeks for follow up Clinical Visit Summary CompletedMedications:CETIRIZINE HCL 10 MG ORAL TABLET (CETIRIZINE HCL) take one tablet by mouth daily #30[Tablet] x 2 Route:ORAL Entered and Authorized by: India SMALL Method used: Electronically to [facility] [address] (retail) [place] [address] Fax: Note to Pharmacy: Route: ORAL; Indications: OTHER SEASONAL ALLERGIC RHINITIS RxID: [id number] ALLERGY RELIEF 50 MCG/ACT NASAL SUSPENSION (FLUTICASONE PROPIONATE) one spary to each nostril twice daily as needed #1[Container] x 1 Route:NASAL Entered and Authorized by: India SMALL Method used: Electronically to [facility] [address] (retail) [address] [facility] [address] [place] [address] Note to Pharmacy: Route: NASAL; Indications: OTHER SEASONAL ALLERGIC RHINITIS RxID: [id number] signed by India SMALL on 01/19/2020 at 6:18 AM Name Value Range Interpretation Code Description Data Azul rce(s) Supporting Document(s) ID Date Data Source [id number] 12/26/2019 09:53:18 AM EDT [facility] Labs In-House Blood TestsDate/Time Colle cted: December 26, 2019 9:25 AMTest Result Reference Range Normal ValueComments: taken from right ac, tolerated well.Karissa Kenyatta, December 26, 2019 9:53 AMAssessment & Plan Orders:[id number] Vst-Est Level I [CPT-65580] 01604 - Venipuncture [CPT-91081] ____ Name Value Range Interpretation Code Description Data Azul rce(s) Supporting Document(s) ID Date Data Source [id number] 12/26/2019 09:25:00 AM EDT [facility] Name Value Range Interpretation Code Description Data Azul rce(s) Supporting Document(s) BG FASTING 86 mg/dL 70-100 N [facility] ID Date Data Source [id number] 12/26/2019 09:25:00 AM EDT [facility] Name Value Range Interpretation Code Description Data Azul rce(s) Supporting Document(s) HCT 39.9 % 36.0-47.0 N [facility] HGB 12.8 g/dL 12.0-15.5 N [facility] MCH 32.1 G/DL pg 32.0-36.5 N [facility] MCHC 26.8 PG % 27.0-33.0 L [facility] PLATELETS 313 10 10*3/mm3 150-450 N [facility] RBC 4.77 10 10*6/mm3 4.00-5.40 N [facility] RDW 19.7 % 11.5-14.5 H [facility] WBC TOTAL 5.8 4.0-10.0 N [facility] ID Date Data Source WWBC Pelvis non-OB COMPLETE US 10/23/2019 01:49:31 PM EDT eC W1 ([facility]) Name Value Range Interpretation Code Description Data Azul rce(s) Supporting Document(s) WWBC Pelvis non-OB COMPLETE US eCW1 ([facility]) ID Date Data Source TSH 10/23/2019 02:00:25 AM EDT eCW1 ([facility]) Name Value Range Interpretation Code Description Data Azul rce(s) Supporting Document(s) 1.060 THYROID STIMULATING HORMONE eC W1 ([facility]) ID Date Data Source CBC - Complete Blood Count 10/23/2019 02:00:19 AM EDT eCW1 ( [facility]) Name Value Range Interpretation Code Description Data Azul rce(s) Supporting Document(s) 4.18 RED BLOOD COUNT eCW1 ([facility]) 5.0 WHITE BLOOD COUNT eCW1 ([facility]) 21.1 MEAN CORPUSCULAR HEMOGLOBIN eC W1 ([facility]) 29.9 HEMATOCRIT eCW1 ([facility]) 8.8 HEMOGLOBIN eCW1 ([facility]) 71.5 MEAN CORPUSCULAR VOLUME eCW1 ( [facility]) 29.4 MEAN CORPUSCULAR HGB CONC eCW1 ([facility]) 16.3 RED CELL DISTRIBUTION WIDTH eC W1 ([facility]) 332 PLATELET COUNT, AUTOMATED eCW1 ([facility]) ID Date Data Source [id number] 09/26/2019 04:13:37 PM EDT [facility] Measurements & CalculationsHeight: 62 inches (5 ft. 2 in.) 157.48 cm Weight: 174 pounds 6 oz. 79.26 kg Body Mass Index (BMI): 32.01BMI Interpretation: ObeseBody Surface Area (BSA): 1.80Weight Management Education Done (Nutrition/Physical Activity)Vital SignsTemperature: 98.7F oral Pulse Rate: 81 beats/minuteRespirato ry Rate: 18 respirations/minuteBlood Pressure: 126/71 right arm sitting automaticO2 Saturation: 100% room airVital Signs performed by: Jorge Tipton LPN, September 26, 2019 4:29 PMInitial Intake Information From: patientRoom #: 9Infectious Disease / Travel ScreeningRecent travel for you or any close contacts? NoHave you had any close contact with anyone diagnosed with or under investigation for COVID-19 (coronavirus)? NoFever? NoRespiratory symptoms: cough, cold, congestion, shortness of breath, difficulty breathing? NoLoss of smell? NoLoss of taste? NoSmoking, Tobacco, Vaping or Smoke Exposure StatusSmoke Status: never smokerTobacco Use: NoDo you vape? NoPassive Smoke Exposure: NoMenstrual HistoryLast Menstrual Period (LMP): 09/30/2019Any possibility of ? NoComments: IUD Healthcare HistorySince your last office visit...Have you been admitted to the hospital? NoHave you been to an emergency room (ER) or urgent care clinic? NoHave you seen another healthcare p rovider? NoHave you seen a dentist? NoIntake performed by: Jorge Tipton LPN, September 26, 2019 4:15 PMRate Your HealthIn general, would you say your health is? GoodPain AssessmentAre you currently having any pain which... You would like your provider to address? Yes Affects your activity level? YesDepression Screening - PHQ-2Over the last two weeks, have you... Had little interest or pleasure in doing things? Not at all Been feeling down, depressed, or hopeless? Not at all PHQ-2 Score: 0Anxiety Screening - WILBERT-2Over the last two weeks, have you been... Feeling nervous, anxious, or on edge? Not at all Unable to stop or control worrying? Not at all WILBERT-2 Score: 0Food InsecurityWithin the past year...Did you worry whether your food would run out before you got money to buy more? NoWas there a time when the food you bought didn't last and you didn't have money to get more? NoPatient Learning & Communication Needs Preferred learning style: verbalPossible barriers: limited colombian proficiencyPatient's Language used in visit: YesLanguage: SpanishInterpreter services used: YesAssessment of health literacy: AdequatePain AssessmentPain ScaleNumeric Rating Scale: 10 / 10Location: right knee Duration: 2 weeksFrequency: DailyCharacter/Quality: aching, burning, throbbing and pressureIs the pain radiating? NoScreening, Brief Intervention, & Referral to Treatment (SBIRT)Pre-Screening Questions How many times have you have 4 or more drinks in a day? 0How many times have you used an illegal drug or used a prescription medication for a non-medical reason? 0Performed by: Jorge Tipton LPN, September 26, 2019 4:21 PMPatient History Medical History:asthmaanemiaSurgical History: section x 1Family History:grandmother- stomach cancergrandfather- diabetesmom asthma, anermiasister- asthmaSocial/Personal History: Chief Complaintlab results RM 9 History of Present Illness (HPI)24 yo female Pt here today for lab results. Pt states she is having rigth knee pain that started 2-3 weeks ago. Pt states that when she stand for extended periods of time, that is when it hurts the most. Pt states that when she lived in [place] that she had a CT of the knee and was told she had fluid in the knee. Pt states she is currently not having any issues with her medications. Pt states healthy diet and physical activities. HPI performed by: India SMALL, September 26, 2019 4:49 PMProblem ReviewProblem List was reviewed and/or updated during this visit.Medication Reconciliation & ReviewMedication List was reviewed and/or updated during this visit, including review of any ocmt-enc-hbrywgb medications, herbal therapies, and/or supplements.Allergy ReviewAllergy List was reviewed and/or updated during this visit.Adult Preventive CareProvider Calculated and Reviewed all Clinical Protocols for patient today. Labs/Meds/Other Counseling- Nutrition and Physical Activity:BMI Interpretation: Obese (09/26/2019) Counseling: Done (09/26/2019) Physical Activity: Done (09/26/2019)Cancer Screening Pap Smear/HPV TestingReviewed: Previous Comments: would like Pap smear here (06/27/2019)Today's Comments: Pt states she had one done in [place] in 2019Review of Systems General: Denies loss of appetite, chills, dizziness, f atigue, fever, continued fever, headache, feeling ill, sweats, night sweats, sleep disturbances, weight loss. Eyes: Denies blurring of vision, double vision, irritation, discharge, vision loss, eye pain, eye swelling, droopy eyelid, sensitivity to light, redness, itching. Ears/Nose/Throat: Denies earache, ear discharge, ringing in ears, decreased hearing, nasal congestion, nosebleeds, runny nose, sore throat, hoarseness, difficulty swallowing, dry mouth, tooth pain, bleeding gums, swollen glands. Cardiovascular: Denies chest pain, palpitations, feeling faint, trouble breathing w/exertion, SOB upon lying down, SOB at night, peripheral edema, elevated blood pressure, decreased heart rate. Respiratory: Denies cough, difficulty breathing, shortness of breath, excessive sputum, coughing up blood, wheezing, chest pain. Gastrointestinal: Denies nausea, vomiting, bleeding, burning, itching, irritation, cramps, constipation. Genitourinary: Denies urinary incontinence, pain with urination. Musculoskeletal: Complains of joint pain, leg pain, muscle aches. Denies back pain, other pain-see comments, joint swelling, body aches, muscle cramps, muscle weakness, stiffness, recent injury. Skin: Denies rash, hives, redness, itching, dryness, nail changes, suspicious lesions, athlete's foot, rash on palms, rash on bottom of feet. Neurologic: Denies muscle impairment, weakness, numbness/tingling, seizures, slurred speech, feeling faint, tremors, vertigo, paralysis on one side, paralysis on both sides. Psychiatric: Denies depression, anxiety, memory loss, mental disturbance, suicidal ideation, homicidal ideation, hallucinations, paranoia, feeling stressed, hearing voices. Endocrine: Denies cold intolerance, heat intolerance, excessive thirst, excessive hunger, excessive urination, weight loss, weight gain. Heme/Lymphatic: Denies abnormal bruising, bleeding, enlarged lymph nodes. Physical ExamGeneral Appearance: well nourished, well hydrated, no acute distressEyes, External: conjunctivae and lids normal, EOMIRespiratory, Auscultation: clear to auscultation bilaterally; no rales, rhonchi, or wheezesRespiratory, Effort: no intercostal retractions or use of accessory musclesCardiovascular, Auscultation: S1, S2 audible; no murmur, rub, or gallop; RRRPeripheral Circulation: no clubbing, cyanosis, edema, or varicositiesAbdomen: soft, non-tender, no masses, bowel sounds normalGait & Station: normalLower Extremity, Right: right knee slightly swollen. tender on palpationSkin, Inspection: no rashes, lesions, or ulcerationsOrientation: oriented to time, place, and personMood & Affect: no depression, anxiety, or agitationJudgment & Insight: intactRate Your HealthIn general, would you say your health is? GoodAssessment & Plan Problems:Added: Person consulting for explanation of examination or test findings (ICD-V65.8) (YDK70-R22.2) Assessment: Instructions: We have reviewed tour lab results with you today.Assessed:Knee pain, right (ICD-719.46) (ULP69-N42.561) Assessment: Instructions: May take OTC tylenol as needed. Please avoid taking Ibuprofen for now. We have made a referral for you today. We will contact you to set this up.Anemia due to blood loss (ICD-280.0) (POB85-G99.0) Assessment: Pt states upcoming appointment with binding printer 09/27. Instructions: Please start taking you Iron medication three times daily. please continue healthy diet and physical activities please try to include foods rich in iron such as meats, liver and green leafy vegetables. Please try to maintain adequate intake of water daily. Please keep your appointment with [facility].Other iron deficiency anemias (NQP34-L54.8) Assessment: Instructions: Please start taking iron medication three times daily until seen by binding printer.Health Screening (ICD-V70.0) (KMC97-P32.9) Assessment: Instructions: lab results reviewed with you today.Patient Instructions/Care Plan: Knee pain- right: May take OTC tylenol as needed. Please avoid taking Ibuprofen for now. We have made a referral for you today. We will contact you to set this up.Anemia due to blood loss: Please start taking you Iron medication three times daily. please continue healthy diet and physical activities please try to include foods rich in iron such as meats, liver and green leafy vegetables. Please try to maintain adequate intake of water daily. Please keep your appointment with [facility].Other iron deficiency anemias: Please start taking iron medication three times daily until seen by binding printer.Person consulting for explanation of examination or test findings: We have reviewed tour lab results with you adelaide lan.Health Screening: lab results reviewed with you today. Plan developed in collaboration with patient and/or familyMedications:ALBUTEROL SULFATE HFA 108 (90 BASE) MCG/ACT INHALATION AEROSOL SOLUTIONMedication Changes:Removed:FEROSUL 325 (65 FE) MG ORAL TABLET-take one tablet by mouth three daily Qty: 90[Tablet] Refills: 2Allergies:No Known Allergies (updated 06/27/2019) Orders:Orthopaedics Consult [CPT-33224] COMP METABOLIC PANEL [CPT- 11262] CBC W/DIFF [CPT-73996] IRON [CPT-42275] VITAMIN B-12 [CPT-08053] FERRITIN [CPT-07505] Folate (Folic Acid Serum) [CPT-84771] Adult - Ofc Vst, EST, Level IV [CPT-34930] Follow-Up Return to clinic: 3 months for follow up Clinical Visit Summary Completed Name Value Range Interpretation Code Description Data Azul rce(s) Supporting Document(s) ID Date Data Source [id number] 09/19/2019 09:31:25 AM EDT [facility] In-House Blood TestsDate/Time Colle cted: September 19, 2019 9:31 AMTest Result Reference Range Normal ValueComments: blood draw done in offcie done in the right ac tolerated well Evan Pacheco ROSALINDA, September 19, 2019 9:31 AMAssessment & Plan Orders:[id number] Vst-Est Level I [CPT-27248] 14354 - Venipuncture [CPT-77896] Name Value Range Interpretation Code Description Data Azul rce(s) Supporting Document(s) ID Date Data Source [id number] 09/19/2019 09:30:00 AM EDT [facility] Name Value Range Interpretation Code Description Data Azul rce(s) Supporting Document(s) HCT 30.2 % 36.0-47.0 L [facility] HGB 9.0 g/dL 12.0-15.5 L [facility] MCH 29.8 G/DL pg 32.0-36.5 L [facility] MCHC 21.6 PG % 27.0-33.0 L [facility] PLATELETS 320 10 10*3/mm3 150-450 N [facility] RBC 4.16 10 10*6/mm3 4.00-5.40 N [facility] RDW 16.7 % 11.5-14.5 H [facility] WBC TOTAL 5.6 4.0-10.0 N [facility] ID Date Data Source [id number] 09/19/2019 09:30:00 AM EDT [facility] Name Value Range Interpretation Code Description Data Azul rce(s) Supporting Document(s) BG FASTING 85 mg/dL 70-[address] [facility] ID Date Data Source [id number] 06/27/2019 08:48:[address] [facility] Measurements & CalculationsHeight: 62 inches (5 ft. 2 in.) 157.48 cm Weight: 173 pounds 78.64 kg Body Mass Index (BMI): 31.76BMI Interpretation: ObeseBody Surface Area (BSA): 1.80Weight Management Education Done (Nutrition/Physical Activity)Vital SignsTemperature: 98.8FPulse Rate: 85 beats/minuteRespiratory Rate: 14 respirations/minuteBlood Pressure: 99/59 O2 Saturation: 100% Vital Signs performed by: Jennifer Albrecht LPN, June 27, 2019 9:04 AMVital Signs performed by: Jennifer Albrecht LPN, June 27, 2019 9:04 AMInitial Intake Information from: patientRoom #: 12Smoking, Tobacco, Vaping or Smoke Exposure StatusSmoke Status: never smokerTobacco Use: NoDo you vape? NoPassive Smoke Exposure: NoMenstrual HistoryAny possibility of ? NoComments: IUDHealthcare HistorySince your last office visit...Have you been admitted to the hospital? NoHave you been to an emergency room (ER) or urgent care clinic? Yes - [facility] Emergency room (ER) or urgent care date reported today: 06/09/2019Have you seen another healthcare provider? NoHave you seen a dentist? NoRate Your HealthIn general, would you say your health is? ExcellentPain AssessmentAre you currently having any pain which... You would like your provider to address? No Affects your activity level? NoDepression Screening - PHQ-2Over the last two weeks, have you... Had little interest or pleasure in doing things? Not at all Been feeling down, depressed, or hopeless? Not at all PHQ-2 Score: 0Anxiety Screening - WILBERT-2Over the last two weeks, have you been... Feeling nervous, anxious, or on edge? Not at all Unable to stop or control worrying? Not at all WILBERT-2 Score: 0Food InsecurityWithin the past year...Did you worry whether your food would run out before you got money to buy more? NoWas there a time when the food you bought didn't last and you didn't have money to get more? NoInfectious Disease / Travel ScreeningRecent travel for you, your family, and/or any sexual partners? NoScreening, Brief Intervention, & Referral to Treatment (SBIRT)Pre-Screening Questions How many times have you have 4 or more drinks in a day? 0How many times have you used an illegal drug or used a prescription medication for a non-medical reason? 0Performed by: Jennifer Albrecht LPN, June 27, 2019 8:59 AMPatient History Social/Personal History: Chief Complaintanemia c/o headache and sinus ,runny nose and congestion room 12History of Present Illness (HPI)24 yo female here for FU on Anmeia needs meds refilled never got iron tabletsPt states havent started taking iron medication because she never received it from pharmacy. Pt states didnt call clinic to check on script. Pt states havent heard from HOME CARE AIDE's office as yet. Pt states still having some dizziness and fatigue. This may be related to Anemia. Referral made to binding printer. Pt advised to call clinic with any concerns. HPI performed by: [place] SMALL, June 27, 2019 9:13 AMTransitions of Care InboundProblem ReviewProblem List was reviewed and/or updated during this visit.Medication Reconciliation & ReviewMedication List was reviewed and/or updated during this visit, including review of any zqsp-rnl-qxlcatl medications, herbal therapies, and/or supplements.Allergy ReviewAllergy List was reviewed and/or updated during this visit. Patient has no known allergies.Adult Preventive CareProvider Calculated and Reviewed all Clinical Protocols for patient today. Labs/Meds/Other Counseling-Nutrition and Physical Activity:BMI Interpretation: Obese (06/27/2019) Counseling: Done (06/27/2019) Physical Activity: Done (06/27/2019)Cancer Screening Pap Smear/HPV TestingReviewed: Previous Comments: patient [place] 8-10 months ago in [place]. would like a referral to a local data collector. (02/20/2019)Today's Comments: would like Pap smear here Review of Systems General: Complains of dizziness, fatigue. Denies loss of appetite, chills, fever, continued fever, headache, feeling ill, sweats, night sweats, sleep disturbances, weight loss. Eyes: Denies blurring of vision, double vision, irritation, discharge, vision loss, eye pain, eye swelling, droopy eyelid, sensitivity to light, redness, itching. Ears/Nose/Throat: Denies earache, ear discharge, ringing in ears, decreased hearing, nasal congestion, nosebleeds, runny nose, sore throat, hoarseness, difficulty swallowing, dry mouth, tooth pain, bleeding gums, swollen glands. Cardiovascular: Denies chest pain, palpitations, feeling faint, trouble breathing w/exertion, SOB upon lying down, SOB at night, peripheral edema, elevated blood pressure, decreased heart rate. Respiratory: Denies cough, difficulty breathing, shortness of breath, excessive sputum, coughing up blood, wheezing, chest pain. Gastrointestinal: Denies nausea, vomiting, bleeding, burning, itching, irritation, cramps, diarrhea, constipation. Genitourinary: Denies urinary incontinence, pain with urination, burning with urination, urinary frequency, urinary hesitancy, urinary urgency, urinary urgency at night, incomplete emptying. Musculoskeletal: Denies back pain, joint pain, leg pain, joint swelling, body aches, muscle aches, muscle cramps, muscle weakness, stiffness, recent injury. Skin: Denies rash, hives, redness, itching, dryness, nail changes, suspicious lesions, athlete's foot, rash on palms, rash on bottom of feet. Neurologic: Denies muscle impairment, weakness, numbness/tingling, seizures, slurred speech, feeling faint, tremors, vertigo, paralysis on one side, paralysis on both sides. Psychiatric: Denies depression, anxiety, memory loss, mental disturbance, suicidal ideation, homicidal ideation, hallucinations, paranoia, feeling stressed, hearing voices. Endocrine: Denies cold intolerance, heat intolerance, excessive thirst, excessive hunger, excessive urination, weight loss, weight gain. Physical ExamGeneral Appearance: well nourished, well hydrated, no acute distressEyes, External: conjunctivae and lids normal, EOMIRespiratory, Auscultation: clear to auscultation bilaterally; no rales, rhonchi, or wheezesRespiratory, Effort: no intercostal retractions or use of accessory musclesCardiovascular, Auscultation: S1, S2 audible; no murmur, rub, or gallop; RRRPeripheral Circulation: no clubbing, cyanosis, edema, or varicositiesAbdomen: soft, non-tender, no masses, bowel sounds normalGait & Station: normalSkin, Inspection: no rashes, lesions, or ulcerationsOrientation: oriented to time, place, and personMood & Affect: no depression, anxiety, or agitationJudgment & Insight: intactCare Management Plan Transitions of CareInboundRate Your HealthIn general, would you say your health is? ExcellentAssessment & Plan Problems:Added: Other iron deficiency anemias (LHZ62-N82.8) Assessment: Instructions: We have resent your prescription to your pharmacy today. Please take medication as prescribed. Please report any major side effects. Please try to maintain good nutrition and adequate fluid intake. to include 6-8 glasses of water daily. Please try to include foods rich in iron to include lean meats and fruits and green leafy vegetables.We have made a referral to hematology. Wed will contact you to set this up.Other iron deficiency anemias (KSW81-G58.8) Assessment: Referral made to binding printer. pt states on Iron supplements. Pt advised to call clinic with any concerns.Assessed:Anemia due to blood loss (ICD- 280.0) (ZDR08-O90.0) Assessment: Referral made for patient to Women's wellness . Phone number provided for patient to contact HOME CARE AIDE's office.Dizziness (ICD- 780.4) (JOP13-E55) Assessment: Instructions: Please try to maintain adequate fluid intake. Please try to change your position slowly.Excessive and frequent menstruation with irregular cycle (ICD-626.6) (IVP57-S61.1) Assessment: Instructions: Referral was made to [facility] breast care. Please call the office today to set up an appointment. Phone number provided.Health Screening (ICD-V70.0) (HTP63-N39.9) Assessment: Instructions: We have reviewed your lab results with you today.Patient Instructions/Care Plan: Other iron deficiency anemias: We have resent your prescription to your pharmacy today. Please take medication as prescribed. Plea se report any major side effects. Please try to maintain good nutrition and adequate fluid intake. to include 6-8 glasses of water daily. Please try to include foods rich in iron to include lean meats and fruits and green leafy vegetables.We have made a referral to hematology. Wed will contact you to set this up.Dizziness: Please try to maintain adequate fluid intake. Please try to change your position slowly.Excessive and frequent menstruation with irregular cycle: Referral was made to [facility] and breast care. Please call the office today to set up an appointment. Phone number provided.Health Screening: We have reviewed your lab results with you today. Plan developed in collaboration with patient and/or familyMedications:FEROSUL 325 (65 FE) MG ORAL TABLETALBUTEROL SULFATE HFA 108 (90 BASE) MCG/ACT INHALATION AEROSOL SOLUTIONMedication Changes:Refilled:FEROSUL 325 (65 FE) MG ORAL TABLET-take one tablet by mouth three daily Qty: 90[Tablet] Refills: 2 Method: ElectronicChanged:From: ORAL FEROSUL 325 (65 FE) MG ORAL TABLET Qty: [id number] Refills: 90[Tablet] To: FEROSUL 325 (65 FE) MG ORAL TABLET-take one tablet by mouth three daily Qty: 90[Tablet] Refills: 2Allergies:No Known Allergies (updated 06/27/2019) Orders:Hematology Consult [CPT-02636] Adult - Ofc Vst, EST, Level III [CPT-12948] COMP METABOLIC PANEL [CPT-16767] CBC W/DIFF [CPT-71965] VITAMIN B-12 [CPT-90379] IRON [CPT-23657] FERRITIN [CPT-34504] Folate (Folic Acid Serum) [CPT-59505] TIBC [CPT-55813] Follow-Up Return to clinic: 6 -8 weeks for follow up Clinical Visit Summary CompletedMedications:FEROSUL 325 (65 FE) MG ORAL TABLET (FERROUS SULFATE) take one tablet by mouth three daily #90[Tablet] x 2 Route:ORAL Entered and Authorized by: India SMALL Method used: Electronically to [facility]* (retail) [address] [place] [address] Note to Pharmacy: Route: ORAL; Indications: ANEMIA DUE TO BLOOD LOSS RxID: [id number]] Name Value Range Interpretation Code Description Data Azul rce(s) Supporting Document(s) ID Date Data Source [id number] 05/30/2019 04:30:[address] [facility] Name Value Range Interpretation Code Description Data Azul rce(s) Supporting Document(s) HCT 33.0 % 36.0-47.0 L [facility] HGB 9.8 g/dL 12.0-15.5 L [facility] MCH 29.7 G/DL pg 32.0-36.5 L [facility] MCHC 21.9 PG % 27.0-33.0 L [facility] PLATELETS 381 10 10*3/mm3 150-450 N [facility] RBC 4.48 10 10*6/mm3 4.00-5.40 N [facility] RDW 17.0 % 11.5-14.5 H [facility] WBC TOTAL 7.9 4.0-10.0 N [facility] ID Date Data Source [id number] 05/30/2019 04:30:[address] [facility] Name Value Range Interpretation Code Description Data Azul rce(s) Supporting Document(s) BG FASTING 88 mg/dL 70-100 [facility] ID Date Data Source [id number] 05/30/2019 03:54:[address] [facility] Measurements & CalculationsHeight: 62 inches (5 ft. 2 in.) 157.48 cm Weight: 173 pounds 78.64 kg Body Mass Index (BMI): 31.76BMI Interpretation: ObeseBody Surface Area (BSA): 1.80Weight Management Education Done (Nutrition/Physical Activity)Vital SignsTemperature: 97.8F 36.56C oral Pulse Rate: 98 beats/minuteRespiratory Rate: 16 respirations/minuteBlood Pressure: 111/73 right arm sitting automaticO2 Saturation: 100% room airVital Signs performed by: Marie Monterroso MA, May 30, 2019 3:54 PMLabs In-House Blood TestsDate/Time Collected: May 30, 2019 4:57 PMDate/Time Received: May 30, 2019 4:57 PMTest Result Reference Range Normal ValueComments: Blood drawn from Rt AC, pt tolerated well. Lorraine Adame LPN, May 30, 2019 4:57 PMInitial Intake Information from: patientRoom #: 13Infectious Disease- Travel Have you or your sexual partner travelled outside of the country recently? NoSmoking, Tobacco or Smoke Exposure StatusSmoke Status: never smokerTobacco Use: NoPassive Smoke Exposure: NoMenstrual HistoryLast Menstrual Period (LMP): 05/14/2019Any possibility of ? NoHealthcare HistorySince your last office visit...Have you been admitted to the hospital? NoHave you been to an emergency room (ER) or urgent care clinic? NoHave you seen another healthcare provider? Yes - in [place], Have you seen a dentist? NoIntake performed by: Marie Monterroso MA, May 30, 2019 3:57 PMRate Your HealthIn general, would you say your health is? Very GoodPain AssessmentAre you currently having any pain which... You would like your provider to address? No Affects your activity level? NoDepression Screening - PHQ-2Over the last two weeks, have you... Had little interest or pleasure in doing things? Not at all Been feeling down, depressed, or hopeless? Not at all PHQ-2 Score: 0Anxiety Screening - WILBERT-2Over the last two weeks, have you been... Feeling nervous, anxious, or on edge? Not at all Unable to stop or control worrying? Not at all WILBERT-2 Score: 0Infectious Disease- Travel Cont. Any possibility of ? NoScreening, Brief Intervention, & Referral to Treatment (SBIRT)Pre-Screening Questions How many times have you have 4 or more drinks in a day? 0How many times have you used an illegal drug or used a prescription medication for a non-medical reason? 0Performed by: Marie Monterroso MA, May 30, 2019 3:57 PMPatient History Medical History:asthmaanemiaSurgical History: section x 1Family History:grand mother- stomach cancergrandfather- diabetesmom asthma, anermiasister- asthmaSocial/Personal History: Smoking Status: never smokerChief Complaintfollow-up visitHistory of Present Illness (HPI)24 yo female here today for follow up visit and review of lab results. Pt states since 2018, her menstral cylcle have started to become more frequent. Pt states menstral cycles every 12 -16 days for 5-7 days. Pt states last menstral cycle started 05/14 and ended 05/18. Pt states have started intermittent nausea and dizzinss two weeks ago. HPI performed by: [place] COMERP, May 30, 2019 4:19 PMTransitions of Care InboundProblem ReviewProblem List was reviewed and/or updated during this visit.Medication Reconciliation & ReviewMedication List was reviewed and/or updated during this visit, including review of any txyb-rkm-aufqbjl medications, herbal therapies, and/or supplements.Allergy ReviewAllergy List was reviewed and/or updated during this visit.Adult Preventive CareProvider Calculated and Reviewed all Clinical Protocols for patient today. Labs/Meds/Other Counseling-Nutrition and Physical Activity:BMI Interpretation: Obese (05/30/2019) Counseling: Done (05/30/2019) Physical Activity: Done (05/30/2019)Cancer Screening Pap Smear/HPV TestingReviewed: Previous Comments: patient says 8-10 months ago in [place]. would like a referral to a local data collector. (02/20/2019)Review of Systems General: Complains of dizziness. Denies loss of appetite, chills, fatigue, fever, continued fever, headache, feeling ill, sweats, night sweats, sleep disturbances, weight loss. Eyes: Denies blurring of vision, double vision, irritation, discharge, vision loss, eye pain, eye swelling, droopy eyelid, sensitivity to light, redness, itching. Ears/Nose/Throat: Denies earache, ear discharge, ringing in ears, decreased hearing, nasal congestion, nosebleeds, runny nose, sore throat, hoarseness, difficulty swallowing, dry mouth, tooth pain, bleeding gums, swollen glands. Cardiovascular: Denies chest pain, palpitations, feeling faint, trouble breathing w/exertion, SOB upon lying down, SOB at night, peripheral edema, elevated blood pressure, decreased heart rate. Respiratory: Denies cough, difficulty breathing, shortness of breath, excessive sputum, coughing up blood, wheezing, chest pain. Breast: Denies discoloration, tenderness, breast changes, breast lump, nipple discharge. Gastrointestinal: Complains of nausea. Denies vomiting, bleeding, burning, itching, irritation, cramps, diarrhea, constipation. Genitourinary: Complains of absence of menstrual period, heavy menstrual period, prolonged menstrual period. Denies urinary incontinence, pain with urination, burning with urination, urinary frequency, urinary hesitancy, urinary urgency, urinary urgency at night, incomplete emptying, blood in urine, painful intercourse, vaginal discharge, vaginal sores. Musculoskeletal: Denies back pain, joint pain, leg pain, joint swelling, body aches, muscle aches, muscle cramps, muscle weakness, stiffness, recent injury. Skin: Denies rash, hives, redness, itching, dryness, nail changes, suspicious lesions, athlete's foot, rash on palms, rash on bottom of feet. Neurologic: Denies muscle impairment, weakness, numbness/tingling, seizures, slurred speech, feeling faint, tremors, vertigo, paralysis on one side, paralysis on both sides. Psychiatric: Denies depression, anxiety, memory loss, mental disturbance, suicidal ideation, homicidal ideation, hallucinations, paranoia, feeling stressed, hearing voices. Endocrine: Denies cold intolerance, heat intolerance, excessive thirst, excessive hunger, excessive urination, weight loss, weight gain. Physical ExamGeneral Appearance: well nourished, well hydrated, no acute distressEyes, External: conjunctivae and lids normal, EOMIRespiratory, Auscultation: clear to auscultation bilaterally; no rales, rhonchi, or wheezesRespiratory, Effort: no intercostal retractions or use of accessory musclesCardiovascular, Auscultation: S1, S2 audible; no murmur, rub, or gallop; RRRPeripheral Circulation: no clubbing, cyanosis, edema, or varicositiesAbdomen: soft, non-tender, no masses, bowel sounds normalGait & Station: normalSkin, Inspection: no rashes, lesions, or ulcerationsOrientation: oriented to time, place, and personMood & Affect: no depression, anxiety, or agitationJudgment & Insight: intactCare Management Plan Transitions of CareInu ndRate Your HealthIn general, would you say your health is? Very GoodAssessment & Plan Problems:Added: Excessive and frequent menstruation with irregular cycle (ICD-626.6) (ZHX79-B02.1) Assessment: Instructions: We have ordered labs today. We have made a referral for you today. We will contact you to set this upNausea (ICD-787.02) (OUY63-I40.0) Assessment: Instructions: Please try to maintain adequate fluid intake. Please try to change your position slowly. please try to maintain bland diet for now.Dizziness (ICD-780.4) (UZR56-V95) Assessment: Instructions: Please try to maintain adequate fluid intake. Please try to change your position slowly.Anemia due to blood loss (ICD-280.0) (ZLX06-J01.0) Assessment: Instructions: We have ordewred labs for you today. We will contact you with abnormal results. We have sent a prescription to start Iron medication please take medication as prescribed. Please try to maintain healthy diet to include foods rich in iron.Assessment not Saved Nausea (WGB84-T66.0): Patient Instructions/Care Plan: Excessive and frequent menstruation with irregular cycle: We have ordered labs today. We have made a referral for you today. We will contact you to set this upNausea: Please try to maintain adequate fluid intake. Please try to change your position slowly. please try to maintain bland diet for now.Dizziness: Please try to maintain adequate fluid intake. Please try to change your position slowly.Anemia due to blood loss: We have ordewred labs for you today. We will contact you with abnormal results. We have sent a prescription to start Iron medication please take medication as prescribed. Please try to maintain healthy diet to include foods rich in iron. Plan developed in collaboration with patient and/or familyMedications:FEROSUL 325 (65 FE) MG ORAL TABLETALBUTEROL SULFATE HFA 108 (90 BASE) MCG/ACT INHALATION AEROSOL SOLUTIONMedication Changes:Refilled:ALBUTEROL SULFATE HFA 108 (90 BASE) MCG/ACT INHALATION AEROSOL SOLUTION-2 puffs for wheezing due to asthma. can use every 4-6 hours Qty: 1[Inhalation] Refills: 2 Method: ElectronicNew Prescription:FEROSUL 325 (65 FE) MG ORAL TABLET-take one tablet by mouth twice daily Qty: 60[Tablet] Refills: 2 Method: ElectronicAllergies:No Known Allergies (updated 02/20/2019) Orders:COMP METABOLIC PANEL [CPT-68690] CBC W/DIFF [CPT-99281] VITAMIN B-12 [CPT-81310] Folate (Folic Acid Serum) [CPT-80619] FERRITIN [CPT-30626] IRON [CPT-46416] TIBC [CPT-08164] Diamond Setter [CPT-78355] 67219 - Venipuncture [CPT-07023] Adult - Ofc Vst, EST, Level IV [CPT-06866] Follow-Up Return to clinic: 3-4 weeks for follow up Clinical Visit Summary CompletedMedications:ALBUTEROL SULFATE HFA 108 (90 BASE) MCG/ACT INHALATION AEROSOL SOLUTION (ALBUTEROL SULFATE) 2 puffs for wheezing due to asthma. can use every 4-6 hours #1[Inhalation] x 2 Route:INHALATION Entered and Authorized by: [place] SMALL Method used: Electronically to [facility]* (retail) [address] [address] Note to Pharmacy: Route: INH; RxID: [id number] 325 (65 FE) MG ORAL TABLET (FERROUS SULFATE) take one tablet by mouth twice daily #60[Tablet] x 2 Route:ORAL Entered and Authorized by: [place] SMALL Method used: Electronically to [facility]* (retail) [address] [address] Note to Pharmacy: Route: ORAL; Indications: ANEMIA DUE TO BLOOD LOSS RxID: [id number] Administered/Entered:Vaccination Group: InfluenzaHistorical Source: Historical information - from other providerSeries: 1Vaccination: Unspecified FormulationMfr / Lot# / Exp.Date: Amt. Given / Route / Site: NDC / CVX: 88Administered Date: 05/30/2019VFC Eligibility: Not recordedVIS Date: Comments: Entered by: Marie Monterroso MA Name Value Range Interpretation Code Description Data Azul rce(s) Supporting Document(s) Procedure Social History Code Duration Value Status Description Data Source(s ) Smoking 04/11/2020 12:00:00 AM EST Never Smoker completed Never S moker eCW1 ([facility]) Smoking 02/26/2020 12:00:00 AM EST Never Smoker completed Never S moker eCW1 ([facility]) Smoking 11/15/2019 12:00:00 AM EDT Never Smoker completed Never S moker eCW1 ([facility]) Smoking 11/13/2019 12:00:00 AM EDT Patient has never smoked co mpleted Patient has never smoked [facility] Smoking 10/11/2019 12:00:00 AM EDT Never Smoker completed Never S moker eCW1 ([facility]) Vital Signs ID Date Data Source UNK Name Value Range Interpretation Code Description Data Source(s) Diastolic blood pressure 72 mm[Hg] 72 mm[Hg] eCW1 ([facility]) Systolic blood pressure 116 mm[Hg] 116 mm[Hg] e CW1 ([facility]) Body mass index (BMI) [Ratio] 35.1 kg/m2 35.1 k g/m2 eCW1 ([facility]) Body height 61 [in_i] 61 [in_i] eCW1 ([facility]) Body weight 84.28 kg 84.28 kg eCW1 ([facility]) Body weight 185.8 [lb_av] 185.8 [lb_av] eCW1 (Count includes the [facility]) Diastolic blood pressure 74 mm[Hg] 74 mm[Hg] eCW1 ([facility]) Systolic blood pressure 118 mm[Hg] 118 mm[Hg] e CW1 ([facility]) Body mass index (BMI) [Ratio] 34.72 kg/m2 34.72 kg/m2 eCW1 ([facility]) Body height 61 [in_i] 61 [in_i] eCW1 ([facility]) Body weight 183.8 [lb_av] 183.8 [lb_av] eCW1 (Count includes the [facility]) Body weight 3442 [oz_av] 3442 [oz_av] SIMÓN ([facility]) Systolic blood pressure 134 mm[Hg] 134 mm[Hg] A THENA ([facility]) Body mass index (BMI) [Ratio] 39.3 kg/m2 39.3 k g/m2 SIMÓN ([facility]) Body height 62 [in_i] 62 [in_i] SIMÓN ([facility]) Diastolic blood pressure 86 mm[Hg] 86 mm[Hg] SIMÓN ([facility]) Diastolic blood pressure 68 mm[Hg] 68 mm[Hg] eCW1 ([facility]) Systolic blood pressure 112 mm[Hg] 112 mm[Hg] e CW1 ([facility]) Body mass index (BMI) [Ratio] 33.06 kg/m2 33.06 kg/m2 W1 ([facility]) Body height 61 [in_i] 61 [in_i] eCW1 ([facility]) Body weight 175 [lb_av] 175 [lb_av] eCW1 ([facility]) Body mass index (BMI) [Ratio] 33.1 kg/m2 33.1 k g/m2 MEDENT ([facility], [facility]) Body height 61 [in_i] 61 [in_i] MEDENT ([facility]) 5'1" Body weight 175.00 [lb_av] 175.00 [lb_av] MEDEN T ([facility], [facility]) Body temperature 99.0 [degF] 99.0 [degF] MEDENT ([facility]) Oxygen saturation in Arterial blood by Pulse oximetry 98 % 98 % MEDENT ([facility], [facility]) Respiratory rate 14 /min 14 /min MEDENT ( [facility], [facility]) Heart rate 97 /min 97 /min MEDENT ([facility], [facility]) Diastolic blood pressure 70 mm[Hg] 70 mm[Hg] MEDENT ([facility]) Systolic blood pressure 101 mm[Hg] 101 mm[Hg] M EDENT ([facility]) Diastolic blood pressure 62 mm[Hg] 62 mm[Hg] eCW1 ([facility]) Systolic blood pressure 102 mm[Hg] 102 mm[Hg] e CW1 ([facility]) Body mass index (BMI) [Ratio] 32.87 kg/m2 32.87 kg/m2 [facility] ([facility]) Body height 61 [in_i] 61 [in_i] W1 ([facility]) Body weight 174 [lb_av] 174 [lb_av] eCW1 ([facility]) Body mass index (BMI) [Ratio] 31.7 kg/m2 31.7 k g/m2 MEDENT ([facility]) Body weight 168.00 [lb_av] 168.00 [lb_av] MEDEN T ([facility]) Body height 61 [in_i] 61 [in_i] MEDENT ([facility]) 5'1" Body temperature 97.5 [degF] 97.5 [degF] MEDENT ([facility]) Body weight 2790.08 [oz_av] 2790.08 [oz_av] ATH ОЛЬГА ([facility]) Systolic blood pressure 126 mm[Hg] 126 mm[Hg] A THENA ([facility]) Body height 62 [in_i] 62 [in_i] SIMÓN ([facility]) Diastolic blood pressure 71 mm[Hg] 71 mm[Hg] SIMÓN ([facility]) Body weight 2768 [oz_av] 2768 [oz_av] SIMÓN ([facility]) Systolic blood pressure 99 mm[Hg] 99 mm[Hg] A THENA ([facility]) Body height 62 [in_i] 62 [in_i] SIMÓN ([facility]) Diastolic blood pressure 59 mm[Hg] 59 mm[Hg] SIMÓN ([facility]) Body mass index (BMI) [Ratio] 32.7 kg/m2 32.7 k g/m2 MEDENT ([facility], [facility]) Body height 61 [in_i] 61 [in_i] MEDENT ([facility], [facility]) 5'1" Body weight 173.00 [lb_av] 173.00 [lb_av] MEDEN T ([facility], [facility]) Body temperature 98.0 [degF] 98.0 [degF] MEDENT ([facility], [facility]) Oxygen saturation in Arterial blood by Pulse oximetry 98 % 98 % MEDENT ([facility], [facility]) Respiratory rate 16 /min 16 /min MEDENT ( [facility], [facility]) Heart rate 111 /min 111 /min MEDENT ([facility], [facility]) Diastolic blood pressure 68 mm[Hg] 68 mm[Hg] MEDENT ([facility], [facility]) Systolic blood pressure 100 mm[Hg] 100 mm[Hg] M EDENT ([facility], [facility]) Body weight 2768 [oz_av] 2768 [oz_av] SIMÓN ([facility]) Systolic blood pressure 111 mm[Hg] 111 mm[Hg] A THENA ([facility]) Body height 62 [in_i] 62 [in_i] SIMÓN ([facility]) Diastolic blood pressure 73 mm[Hg] 73 mm[Hg] SIMÓN ([facility]) Patient Treatment Plan of Care Planned Activity Planned Date Details Description Data Source (s) tramadol hydrochloride 50 MG Oral Tablet [Ultram] 04/11/2020 12: 00:00 AM EST eCW1 ([facility]) Ibuprofen 800 MG Oral Tablet 04/11/2020 12:00:00 AM EST eCW1 ([facility]) cetirizine hydrochloride 10 MG Oral Tablet SIMÓN ([facility])
[2020-05-22] MEDS ORDERED: CELE40TA PO (13:01)
--- OUTSIDE RECORDS SUMMARY | 2020-05-22 14:08 | CCD ---
Author Author [facility] Organization [facility] Address Unknown Phone Unavailable Care Team Providers Care Sql Server Dba Name Role Phone MCELHERYOLA, DEENA PA Unavailable [...] DEENA PA Unavailable Unavailable Samir, A India FARM IMPLEMENT ENGINE MECHANIC Unavailable Unavailable [place], A India FARM IMPLEMENT ENGINE MECHANIC Unavailable Unavailable [place], A India FARM IMPLEMENT ENGINE MECHANIC Unavailable Unavailable [place], A [place] FARM IMPLEMENT ENGINE MECHANIC Unavailable Unavailable [place], A India FARM IMPLEMENT ENGINE MECHANIC Unavailable Unavailable [place], A [place] FARM IMPLEMENT ENGINE MECHANIC Unavailable Unavailable [place], A India FARM IMPLEMENT ENGINE MECHANIC Unavailable Unavailable [place], A India FARM IMPLEMENT ENGINE MECHANIC Unavailable Unavailable [place], A [place] FARM IMPLEMENT ENGINE MECHANIC Unavailable Unavailable [place], A [place] FARM IMPLEMENT ENGINE MECHANIC Unavailable Unavailable [place], A [place] FARM IMPLEMENT ENGINE MECHANIC Unavailable Unavailable [place], A [place] FARM IMPLEMENT ENGINE MECHANIC Unavailable Unavailable [place], A [place] FARM IMPLEMENT ENGINE MECHANIC Unavailable Unavailable [place], A India FARM IMPLEMENT ENGINE MECHANIC Unavailable Unavailable [place], A [place] FARM IMPLEMENT ENGINE MECHANIC Unavailable Unavailable [place], A India FARM IMPLEMENT ENGINE MECHANIC Unavailable Unavailable [place], A India FARM IMPLEMENT ENGINE MECHANIC Unavailable Unavailable [place], A [place] FARM IMPLEMENT ENGINE MECHANIC Unavailable Unavailable [place], A India FARM IMPLEMENT ENGINE MECHANIC Unavailable Unavailable [place], A India FARM IMPLEMENT ENGINE MECHANIC Unavailable Unavailable [place], A [place] FARM IMPLEMENT ENGINE MECHANIC Unavailable Unavailable [place], A [place] FARM IMPLEMENT ENGINE MECHANIC Unavailable Unavailable [place], A [place] FARM IMPLEMENT ENGINE MECHANIC Unavailable Unavailable [place], A [place] FARM IMPLEMENT ENGINE MECHANIC Unavailable Unavailable [place], A India FARM IMPLEMENT ENGINE MECHANIC Unavailable Unavailable [place], A [place] FARM IMPLEMENT ENGINE MECHANIC Unavailable Unavailable [place], A [place] FARM IMPLEMENT ENGINE MECHANIC Unavailable Unavailable ALEXANDER, DARNELL PA Unavailable Unavailable ALEXANDER, DARNELL PA Unavailable Unavailable ALEXANDER, DARNELL PA Unavailable Unavailable ALEXANDER, DARNELL PA Unavailable Unavailable ALEXANDER, DARNELL PA Unavailable Unavailable ALEXANEDR, DARNELL PA Unavailable Unavailable ALEXANDER, DARNELL PA [...] ALEXANDER, DARNELL PA Unavailable Unavailable Samir, India FARM IMPLEMENT ENGINE MECHANIC FARM IMPLEMENT ENGINE MECHANIC Unavailable Unavailable NICOLE SCOTT MD Unavailable Unavailable [...] SCOTT MD Unavailable Unavailable Samir, A [place] FARM IMPLEMENT ENGINE MECHANIC Unavailable Unavailable Samir, A [place] FARM IMPLEMENT ENGINE MECHANIC Unavailable Unavailable Samir, A [place] FARM IMPLEMENT ENGINE MECHANIC Unavailable Unavailable Samir, A [place] FARM IMPLEMENT ENGINE MECHANIC Unavailable Unavailable Samir, A [place] FARM IMPLEMENT ENGINE MECHANIC Unavailable Unavailable Samir, A [place] FARM IMPLEMENT ENGINE MECHANIC Unavailable Unavailable Samir, A [place] FARM IMPLEMENT ENGINE MECHANIC Unavailable Unavailable Samir, A [place] FARM IMPLEMENT ENGINE MECHANIC Unavailable Unavailable Samir, A [place] FARM IMPLEMENT ENGINE MECHANIC Unavailable Unavailable Samir, A [place] FARM IMPLEMENT ENGINE MECHANIC Unavailable Unavailable Samir, A [place] FARM IMPLEMENT ENGINE MECHANIC Unavailable Unavailable Samir, A Idnia FARM IMPLEMENT ENGINE MECHANIC Unavailable Unavailable Samir, A [place] FARM IMPLEMENT ENGINE MECHANIC Unavailable Unavailable Samir, A [place] FARM IMPLEMENT ENGINE MECHANIC Unavailable Unavailable Samir, A [place] FARM IMPLEMENT ENGINE MECHANIC Unavailable Unavailable Samir, A [place] FARM IMPLEMENT ENGINE MECHANIC Unavailable Unavailable Samir, A [place] FARM IMPLEMENT ENGINE MECHANIC Unavailable Unavailable Samir, A [place] FARM IMPLEMENT ENGINE MECHANIC Unavailable Unavailable Samir, A [place] FARM IMPLEMENT ENGINE MECHANIC Unavailable Unavailable Samir, A [place] FARM IMPLEMENT ENGINE MECHANIC Unavailable Unavailable Samir, A [place] FARM IMPLEMENT ENGINE MECHANIC Unavailable Unavailable Samir, A [place] FARM IMPLEMENT ENGINE MECHANIC Unavailable Unavailable Samir, A [place] FARM IMPLEMENT ENGINE MECHANIC Unavailable Unavailable Samir, A [place] FARM IMPLEMENT ENGINE MECHANIC Unavailable Unavailable Samir, A [place] FARM IMPLEMENT ENGINE MECHANIC Unavailable Unavailable Samir, A [place] FARM IMPLEMENT ENGINE MECHANIC Unavailable Unavailable Samir, A [place] FARM IMPLEMENT ENGINE MECHANIC Unavailable Unavailable LETTIERE, A DEENA PA Unavailable [...] is protected by Article 27-F of the [facility] Public Health law. If you continue you may have access to information: Regarding HIV / AIDS; Provided by facilities licensed or operated by the [facility] Office of Mental Health; or Provided by the [facility] Office for People With Developmental Disabilities. If such information is present, then the following [facility] mandated warning applies: This information has [...] Date Indications Data Source(s ) Outpatient [address] [facility] [id number] 04/11/2020 12:00:00 AM EST eCW1 ([facility]) Outpatient Attender: DEENA SALAZAR Physical Therapy 04/01/2020 02:45:00 PM EST MEDENT ([facility]) Outpatient Attender: DEENA SALAZAR Physical Therapy 03/27/2020 01:15:00 PM EST MEDENT ([facility]) Outpatient [address] [facility] [id number] 02/26/2020 12:00:00 AM EST eCW1 ([facility]) Outpatient Attender: STACI MAC 02/14/2020 03:49:00 P M EDT [facility] AWILDA VanceBC: [address] [place] [address], Ph. Attender: India SMALL [facility] Medical 02/14/2020 12:00:00 AM EDT SIMÓN ([facility]) Outpatient Attender: India SMALL 02/12/2020 03:3 4:02 PM EDT [facility] Outpatient Attender: STACI SMALL 02/12/2020 03:34:01 P M EDT [facility] Outpatient Attender: DEENA SALAZAR Physical Therapy 02/01/2020 03:30:00 PM EDT MEDENT ([facility]) Outpatient Attender: India SMALL 01/19/2020 06:1 9:02 AM EDT [facility] Outpatient Attender: STACI SMALL 01/14/2020 03:36:02 P M EDT [facility] Outpatient Attender: India SMALL 01/14/2020 03:3 6:01 PM EDT [facility] Outpatient Attender: STACI SMALL 01/14/2020 03:35:00 P M EDT [facility] Outpatient Attender: India SMALL 01/14/2020 03:3 5:00 PM EDT [facility] Outpatient Attender: STACI SMALL 01/03/2020 05:26:04 P M EDT [facility] Outpatient Attender: DEENA SALAZAR Physical Therapy 01/03/2020 01:15:00 PM EDT MEDENT ([facility]) Outpatient Attender: STACI SMALL 01/02/2020 05:19:01 P M EDT [facility] Outpatient Attender: India SMALL 12/31/2019 02:4 8:01 PM EDT [facility] Outpatient Attender: STACI SMALL 12/25/2019 11:49:00 A M EDT [facility] Outpatient Attender: DEENA SALAZAR Physical Therapy 12/13/2019 10:45:00 AM EDT MEDENT ([facility]) Office Visit Attender: NICOLE SCOTT MD Physical Therapy 03:00:00 PM EDT MEDENT ([facility]) Outpatient Attender: STACI MAC 11/15/2019 11:42:00 A M EDT [facility] Outpatient Attender: DEENA SALAZAR Physical Therapy 11/15/2019 10:45:00 AM EDT MEDENT ([facility]) (WC PROC) [facility]Center Procedure [address] [place] [address] 11/15/2019 12:00:00 AM EDT eCW1 ([facility]) Outpatient Attender: DARNELL Franciscoa ry 11/13/2019 01:20:00 PM EDT MEDENT ([facility]) Outpatient [address] [facility] [id number] 10/11/2019 12:00:00 AM EDT eCW1 ([facility]) Outpatient Attender: NICOLE SCOTT MD Physical Therapy 03:15:00 PM EDT MEDENT ([facility]) Outpatient Attender: STACI MAC 10/03/2019 07:59:52 P M EDT [facility] Outpatient Attender: STACI MAC 10/02/2019 09:00:06 A M EDT [facility] Outpatient Attender: India MAC 10/02/2019 08:5 8:59 AM EDT [facility] Outpatient Attender: STACI MAC 09/27/2019 11:03:00 A M EDT [facility] Outpatient Attender: STACI MAC 09/26/2019 05:01:01 P M EDT [facility] Outpatient Attender: India MAC 09/26/2019 05:0 1:00 PM EDT [facility] Outpatient Attender: STACI MAC 09/24/2019 11:31:02 P M EDT [facility] Outpatient Attender: India MAC 09/24/2019 11:3 1:01 PM EDT [facility] Outpatient Attender: STACI MAC 09/22/2019 08:36:00 A M EDT [facility] Outpatient Attender: STACI SMALL FP 09/19/2019 09:23:00 A M [facility] Outpatient Attender: STACI SMALL FP 09/19/2019 09:19:01 A M T [facility] Outpatient Attender: STACI COMERP FP 09/19/2019 09:18:01 A M T [facility] Outpatient Attender: STACI SMALL FP 09/14/2019 11:02:01 A M T [facility] Outpatient Attender: STACI COMERP FP 08/22/2019 07:56:00 A M T [facility] Outpatient Attender: STACI SMALL FP 07/03/2019 01:23:00 P [facility] Outpatient Attender: STACI SMALL FP 06/30/2019 09:09:01 A M [facility] Outpatient Attender: India SMALL FP 06/30/2019 09:0 9:00 AM [facility] Outpatient Attender: STACI COMERP FP 06/27/2019 09:34:01 A M [facility] Outpatient Attender: STACI COMERP FP 06/27/2019 08:45:01 A [facility] Outpatient Attender: STACI COMERP FP 06/27/2019 08:40:01 A M [facility] Outpatient Attender: STACI COMERP FP 06/26/2019 02:37:01 P [facility] Outpatient Attender: India SMALL FP 06/26/2019 02:3 6:02 PM [facility] Outpatient Attender: STACI COMERP FP 06/26/2019 02:34:00 P [facility] Outpatient Attender: DEENA galvez 06/09/2019 08:00:00 AM EST MEDENT ([facility]) Outpatient Attender: STACI COMERP FP 06/05/2019 10:12:00 A M [facility] Outpatient Attender: India SMALL FP 06/05/2019 05:5 7:02 AM [facility] Outpatient Attender: STACI COMERP FP 05/30/2019 04:50:02 P M [facility] Outpatient Attender: STACI Dawson FARM IMPLEMENT ENGINE MECHANIC FP 05/30/2019 04:16:00 P M [facility] Outpatient Attender: STACI Dawson FARM IMPLEMENT ENGINE MECHANIC FP 05/30/2019 04:15:01 P M [facility] Outpatient Attender: STACI Dawson FARM IMPLEMENT ENGINE MECHANIC FP 05/30/2019 03:20:01 P M [facility] Outpatient Attender: STACI Dawson FARM IMPLEMENT ENGINE MECHANIC FP 05/30/2019 03:19:00 P [facility] Outpatient Attender: STACI Dawson FARM IMPLEMENT ENGINE MECHANIC FP 03/29/2019 03:28:01 P [facility] Immunizations Vaccine Date Status Description Data Source(s) This CVX code allows reporting of a vacc ination when formulation is unknown (for example, when recording a Influenza vaccination when noted on a vaccination card) 05/30/2019 12:00:00 AM EST completed 05/30/2019 AUBREE Palma ([facility]) Medications Medication Brand Name Start Date Product Form Dose Route Admi nistrative Instructions Pharmacy Instructions Status Indications Reaction Description Data Source(s) Ibuprofen 800 MG Oral Tablet Ibuprofen 800 MG 04/11/2020 12:00:[address] active Ibuprofen 800 MG eCW1 ([facility] tramadol hydrochloride 50 MG Oral Tablet [Ultram] Ultram 50 MG Ultram 50 MG 04/11/2020 12:00:00 AM EST 1.0 {tablet_as_needed} active Ultram 50 MG eCW1 ([facility]) Naproxen 500 MG Oral Tablet Naproxen 11/13/2019 12:00:00 AM EDT ORAL active MEDENT ([facility]) Oseltamivir 75 MG Oral Capsule Oseltamivir Phosphate 06/09/2019 12:00:00 AM EST ORAL completed MEDENT ([facility]) cetirizine hydrochloride 10 MG Oral Tablet cetirizine 10 mg tablet cetirizine 10 mg tablet completed cetirizine hydrochloride 10 MG Oral Tablet SIMÓN ([facility]) Insurance Providers Payer name Policy type / Coverage type Policy ID Covered libertarian ID Covered libertarian's relationship to adame Policy Adame Plan Information [facility] [id number] [employer] [facility] [id number] SP [id number] [facility] [id number] SP [id number] [facility] [id number] SP [id number] [facility] Essential Plan P [id number] S [id number] SELF PAY ONLY 0 SP 0 Self Pay P [id number] S [id number] MEDICAID [id number] SP [id number] [facility] [id number] SP [id number] [facility] [id number] SP [id number] Self Pay P UNAVAILABLE S UNAVAILA BLE [facility] Community Plan P [id number] S [id number] [facility] Community Plan P [id number] S [id number] Medicaid S [id number] S [id number] Medicaid P [id number] S [id number] Problems, Conditions, and Diagnoses Code Display Name Description Problem Type Effective Dates Data Source(s) J30.2 Other seasonal allergic rhinitis Other seasonal allerg ic rhinitis 01/03/2020 05:24:17 PM EDT [facility] N93.9 [id number] Abnormal uterine bleeding (AUB) Problem 10/11/2019 12:00:00 AM EDT eCW1 ([facility]) V65.8 Person consulting for explanation of exa mination or test findings Person consulting for explanation of examination or test findings 10/02/2019 08:58:23 AM EDT [facility] [id number] Patient asked to attend Patient Asked to Attend Proble m 09/26/2019 12:00:00 AM EDT SIMNÓ ([facility]) D50.8 Other iron deficiency anemias Other iron deficiency an emias 06/27/2019 09:33:57 AM EST [facility] [id number] Iron deficiency anemia secondary to inad equate dietary iron intake Iron Deficiency Anemia Secondary to Inadequate Dietary Iron Intake Problem 06/27/2019 12:00:00 AM EST SIMÓN ([facility]) 626.6 Excessive and frequent menstruation with irregular cycle Excessive and frequent menstruation with irregular cycle 05/30/2019 04:49: 19 PM EST [facility] 787.02 Nausea Nausea 05/30/2019 04:49:[address] [facility] 780.4 Dizziness Dizziness 05/30/2019 04:49:19 PM RAJIV Morales [facility] 280.0 Anemia due to blood loss Anemia due to blood loss 05/30/2019 04:49:19 PM [facility] [id number] Finding of regularity of menstrual cycle Finding of Regularity of Menstrual Cycle Problem 05/30/2019 12:00:00 AM CHLOE GR ([facility]) [id number] Nausea Nausea Problem 05/30/2019 12:00:00 AM RAJIV GR ([facility]) [id number] Dizziness and giddiness Dizziness and Giddiness Proble m 05/30/2019 12:00:00 AM CHLOE GR ([facility]) [id number] Anemia due to chronic blood loss Anemia Due to C hronic Blood Loss Problem 05/30/2019 12:00:00 AM CHLOE GR ([facility]) Surgeries/Procedures Procedure Description Date Indications Data Source(s) MRI Upper Extremity Any Joint 02/13/2020 12:00:00 AM E DT MEDENT ([facility] APPLICATION CAST ELBOW FINGER SHORT ARM 11/15/2019 12: 00:00 AM EDT MEDENT ([facility] ) URINE TEST 11/15/2019 12:00:00 AM EDT eCW1 ([facility]) Medication: Mirena 52 mg (Levonorgestrel -releasing intrauterine contraceptive system) 11/15/2019 12:00:00 AM EDT eCW1 ([facility]) MRI Lower Extremity Any Joint 10/13/2019 12:00:00 AM E DT MEDENT ([facility] ) RADIOLOGIC EXAM KNEE COMPLETE 4/MORE VIEWS 10/06/2019 12:00:00 AM EDT MEDENT ([facility] ) Results ID Date Data Source [id number] 05/09/2020 12:00:00 AM EST [facility] Name Value Range Interpretation Code Description Data Azul rce(s) Supporting Document(s) Carestart Rapid COVID Antigen Test Positive [facility] This lab was reported by Princess agosto. ID Date Data Source [id number] 03/27/2020 12:00:00 AM EST [facility] Name Value Range Interpretation Code Description Data Azul rce(s) Supporting Document(s) SARS coronavirus 2 RNA [Presence] in Res piratory specimen by CURTIS with probe detection [facility] This lab was ordered by Princess Parrish and reported by [employer]. ID Date Data Source [id number] 02/11/2020 01:22:00 PM EDT [facility] Name Value Range Interpretation Code Description Data Azul rce(s) Supporting Document(s) HCT 38.7 % 36.0-47.0 N [facility] HGB 12.5 g/dL 12.0-15.5 N [facility] MCH 32.3 G/DL pg 32.0-36.5 N [facility] MCHC 28.4 PG % 27.0-33.0 N [facility] PLATELETS 267 10 10*3/mm3 150-450 N [facility] RBC 4.40 10 10*6/mm3 4.00-5.40 N [facility] RDW 13.0 % 11.5-14.5 N [facility] WBC TOTAL 8.3 4.0-10.0 N [facility] ID Date Data Source [id number] 02/11/2020 01:22:00 PM EDT [facility] Name Value Range Interpretation Code Description Data Azul rce(s) Supporting Document(s) BG FASTING 95 mg/dL 70-100 N [facility] y Health ID Date Data Source [id number] 01/03/2020 04:02:56 PM EDT [facility] Measurements & CalculationsHeight: 62 inches (5 [...] three weeks. Pt states was seen by waterproof bag sewer. HPI performed by: India SMALL, January 03, 2020 5:11 PMProblem ReviewProblem List was reviewed and/or updated during this visit.Medication Reconciliation & ReviewMedication List was reviewed and/or updated during this visit, including review of any [id number] medications, herbal therapies, and/or supplements.Allergy ReviewAllergy List was reviewed and/or updated during this visit. Patient has no known allergies.Adult Preventive CareProvider Calculated and Reviewed all Clinical Protocols for patient today. Labs/Meds/Other Counseling-Nutrition and Physical Activity:BMI Interpretation: Obese (01/03/2020) Counseling: Done (01/03/2020) Physical Activity: Done (01/03/2020)Cancer Screening Pap Smear/HPV TestingReviewed: Previous Comments: Pt states she had one done in [place] in 2019 (09/26/2019)Today's Comments: Pt Reports was [...] of examination or test f indings (ICD-V65.8) (RFN76-F98.2) Assessment: Instructions: We have reviewed your lab results with you today.Please continue healthy diet and physical activities. Please try to maintain adequate intake of water .Other iron deficiency anemias (CUM39-F32.8) Assessment: Pt was seen and evaluated by waterproof bag sewer. received IV iron infusion. Anemia improved. Instructions: Anemia improved. Please continue to follow with your specialist.Person consulting for explanation of examination or test findings (ICD-V65.8) (BKY13-W62.2) Assessment: Anemia improved.Patient Instructions/Care Plan: Person consulting [...] Orders:Adult - Ofc Vst, EST, Level IV [CPT-92496] Follow-Up Return to clinic: 6-8 weeks for follow up Clinical Visit Summary CompletedMedications:CETIRIZINE HCL 10 MG ORAL TABLET (CETIRIZINE HCL) take one tablet by mouth daily #30[Tablet] x 2 Route:ORAL Entered and Authorized by: India SMALL Method used: Electronically to [facility] [address] (retail) [place] [address] Fax: Note to Pharmacy: Route: ORAL; Indications: OTHER SEASONAL ALLERGIC RHINITIS RxID: [id number] ALLERGY RELIEF 50 MCG/ACT NASAL SUSPENSION (FLUTICASONE PROPIONATE) one spary to each nostril twice daily as needed #1[Container] x 1 Route:NASAL Entered and Authorized by: India SMALL Method used: Electronically to [facility] [address] (retail) [address] [facility] [address] [place] [address] Note to Pharmacy: Route: NASAL; Indications: OTHER SEASONAL ALLERGIC RHINITIS RxID: [id number] signed by India SMALL on 01/19/2020 at 6:18 AM Name Value Range Interpretation Code Description Data Azul rce(s) Supporting Document(s) ID Date Data Source [id number] 12/26/2019 09:53:18 AM EDT [facility] Labs In-House Blood TestsDate/Time Colle cted: December 26, 2019 9:25 AMTest Result Reference Range Normal ValueComments: taken from right ac, tolerated well.Karissa Kenyatta, December 26, 2019 9:53 AMAssessment & Plan Orders:20730-Vus Vst-Est Level I [CPT-09053] 21409 - Venipuncture [CPT-19001] ____ Name Value Range Interpretation Code Description Data Azul rce(s) Supporting Document(s) ID Date Data Source [id number] 12/26/2019 09:25:00 AM EDT [facility] Name Value Range Interpretation Code Description Data Azul rce(s) Supporting Document(s) BG FASTING 86 mg/dL 70-100 N [facility] y Health ID Date Data Source [id number] 12/26/2019 09:25:00 AM EDT [facility] Name Value Range Interpretation Code Description Data Azul rce(s) Supporting Document(s) HCT 39.9 % 36.0-47.0 N [facility] HGB 12.8 g/dL 12.0-15.5 N [facility] MCH 32.1 G/DL pg 32.0-36.5 N [facility] MCHC 26.8 PG % 27.0-33.0 L [facility] PLATELETS 313 10 10*3/mm3 150-450 N [facility] RBC 4.77 10 10*6/mm3 4.00-5.40 N [facility] RDW 19.7 % 11.5-14.5 H [facility] WBC TOTAL 5.8 4.0-10.0 N [facility] ID Date Data Source WWBC Pelvis non-OB COMPLETE US 10/23/2019 01:49:31 PM EDT eC W1 ([facility]) Name Value Range Interpretation Code Description Data Azul rce(s) Supporting Document(s) WWBC Pelvis non-OB COMPLETE US eCW1 ([facility]) ID Date Data Source TSH 10/23/2019 02:00:25 AM EDT eCW1 ([facility]) Name Value Range Interpretation Code Description Data Azul rce(s) Supporting Document(s) 1.060 THYROID STIMULATING HORMONE eC W1 ([facility]) ID Date Data Source CBC - Complete Blood Count 10/23/2019 02:00:19 AM EDT eCW1 ( [facility]) Name Value Range Interpretation Code Description Data Azul rce(s) Supporting Document(s) 4.18 RED BLOOD COUNT eCW1 ([facility]) 5.0 WHITE BLOOD COUNT eCW1 ([facility]) 21.1 MEAN CORPUSCULAR HEMOGLOBIN eC W1 ([facility]) 29.9 HEMATOCRIT eCW1 ([facility]) 8.8 HEMOGLOBIN eCW1 ([facility]) 71.5 MEAN CORPUSCULAR VOLUME eCW1 ( [facility]) 29.4 MEAN CORPUSCULAR HGB CONC eCW1 ([facility]) 16.3 RED CELL DISTRIBUTION WIDTH eC W1 ([facility]) 332 PLATELET COUNT, AUTOMATED eCW1 ([facility]) ID Date Data Source [id number] 09/26/2019 04:13:37 PM EDT [facility] Measurements & CalculationsHeight: 62 inches (5 [...] Needs Preferred learning style: verbalPossible barriers: limited eritrean proficiencyPatient's Language used in visit: YesLanguage: SpanishInterpreter [...] Pt states that [place] that [place] CT of the [...] during this visit, including review of any mcfc-dty-dqgmikz medications, herbal therapies, and/or supplements.Allergy ReviewAllergy List was reviewed and/or updated during this visit.Adult Preventive CareProvider Calculated and Reviewed all Clinical Protocols for patient today. Labs/Meds/Other Counseling- Nutrition and Physical Activity:BMI Interpretation: Obese (09/26/2019) Counseling: Done (09/26/2019) Physical Activity: Done (09/26/2019)Cancer Screening Pap Smear/HPV TestingReviewed: Previous Comments: would like Pap smear here (06/27/2019)Today's Comments: Pt states she had one done in [place] in 2019Review of Systems General: Denies loss [...] explanation of examination or test findings (ICD-V65.8) (OSO06-E96.2) Assessment: Instructions: We have reviewed tour lab results with you today.Assessed:Knee pain, right (ICD-719.46) (IAT57-V47.561) Assessment: Instructions: May take OTC tylenol as needed. Please avoid taking Ibuprofen for now. We have made a referral for you today. We will contact you to set this up.Anemia due to blood loss (ICD-280.0) (BOL25-M44.0) Assessment: Pt states upcoming appointment with waterproof bag sewer 09/27. Instructions: Please start taking you Iron medication three times daily. please continue healthy diet and physical activities please try to include foods rich in iron such as meats, liver and green leafy vegetables. Please try to maintain adequate intake of water daily. Please keep your appointment with Reheat Furnace Operator.Other iron deficiency anemias (IMW30-H90.8) Assessment: Instructions: Please start taking iron medication three times daily until seen by waterproof bag sewer.Health Screening (ICD-V70.0) (FFP30-A67.9) Assessment: Instructions: lab results reviewed with you [...] water daily. Please keep your appointment with Reheat Furnace Operator.Other iron deficiency anemias: Please start taking iron medication three times daily until seen by waterproof bag sewer.Person consulting for explanation of examination or test [...] 2Allergies:No Known Allergies (updated 06/27/2019) Orders:Orthopaedics Consult [CPT-07782] COMP METABOLIC PANEL [CPT- 45833] CBC W/DIFF [CPT-13991] IRON [CPT-57192] VITAMIN B-12 [CPT-13241] FERRITIN [CPT-14089] Folate (Folic Acid Serum) [CPT-68978] Adult - Ofc Vst, EST, Level IV [CPT-97000] Follow-Up Return to clinic: 3 months for follow up Clinical Visit Summary Completed Name Value Range Interpretation Code Description Data Azul rce(s) Supporting Document(s) ID Date Data Source [id number] 09/19/2019 09:31:25 AM EDT [facility] Labs In-House Blood TestsDate/Time Colle cted: September 19, 2019 9:31 AMTest Result Reference Range Normal ValueComments: blood draw done in offcie done in the right ac tolerated well Evan Pacheco ROSALINDA, September 19, 2019 9:31 AMAssessment & Plan Orders:20591-Lyz Vst-Est Level I [CPT-63814] 09666 - Venipuncture [CPT-56492] Name Value Range Interpretation Code Description Data Azul rce(s) Supporting Document(s) ID Date Data Source [id number] 09/19/2019 09:30:00 AM EDT [facility] Name Value Range Interpretation Code Description Data Azul rce(s) Supporting Document(s) HCT 30.2 % 36.0-47.0 L [facility] HGB 9.0 g/dL 12.0-15.5 L [facility] MCH 29.8 G/DL pg 32.0-36.5 L [facility] MCHC 21.6 PG % 27.0-33.0 L [facility] PLATELETS 320 10 10*3/mm3 150-450 N [facility] RBC 4.16 10 10*6/mm3 4.00-5.40 N [facility] RDW 16.7 % 11.5-14.5 H [facility] WBC TOTAL 5.6 4.0-10.0 N [facility] ID Date Data Source [id number] 09/19/2019 09:30:00 AM EDT [facility] Name Value Range Interpretation Code Description Data Azul rce(s) Supporting Document(s) BG FASTING 85 mg/dL 70-100 N [facility] ID Date Data Source [id number] 06/27/2019 08:48:43 AM EST [facility] Family [facility] Measurements & CalculationsHeight: 62 [...] on script. Pt states havent heard from EXTERIOR DESIGNER's office as yet. Pt states still having some dizziness and fatigue. This may be related to Anemia. Referral made to waterproof bag sewer. Pt advised to call clinic with any concerns. HPI performed by: India SMALL, June 27, 2019 9:13 AMTransitions of Care InboundProblem ReviewProblem List was reviewed and/or updated during this visit.Medication Reconciliation & ReviewMedication List was reviewed and/or updated during this visit, including review of any vzji-blo-nqpirhv medications, herbal therapies, and/or supplements.Allergy ReviewAllergy List was reviewed and/or updated during this visit. Patient has no known allergies.Adult Preventive CareProvider Calculated and Reviewed all Clinical Protocols for patient today. Labs/Meds/Other Counseling-Nutrition and Physical Activity:BMI Interpretation: Obese (06/27/2019) Counseling: Done (06/27/2019) Physical Activity: Done (06/27/2019)Cancer Screening Pap Smear/HPV TestingReviewed: Previous Comments: patient says 8-10 months ago in [place]. would like a referral to a local software application tester. (02/20/2019)Today's Comments: would like Pap smear here [...] & Plan Problems:Added: Other iron deficiency anemias (DNC74-T47.8) Assessment: Instructions: We have resent your prescription [...] to set this up.Other iron deficiency anemias (LUO96-T97.8) Assessment: Referral made to waterproof bag sewer. pt states on Iron supplements. Pt advised to call clinic with any concerns.Assessed:Anemia due to blood loss (ICD- 280.0) (WUA37-B30.0) Assessment: Referral made for patient to Women's wellness . Phone number provided for patient to contact EXTERIOR DESIGNER's office.Dizziness (ICD- 780.4) (CID77-X60) Assessment: Instructions: Please try to maintain adequate fluid intake. Please try to change your position slowly.Excessive and frequent menstruation with irregular cycle (ICD-626.6) (NAS36-F87.1) Assessment: Instructions: Referral was made to [facility]. Please call the office today to set up an appointment. Phone number provided.Health Screening (ICD-V70.0) (OAU06-R90.9) Assessment: Instructions: We have reviewed your lab [...] 325 (65 FE) MG ORAL TABLET Qty: [id number] Refills: 90[Tablet] To: FEROSUL 325 (65 FE) MG ORAL TABLET-take one tablet by mouth three daily Qty: 90[Tablet] Refills: 2Allergies:No Known Allergies (updated 06/27/2019) Orders:Hematology Consult [CPT-89447] Adult - Ofc Vst, EST, Level III [CPT-62970] COMP METABOLIC PANEL [CPT-77590] CBC W/DIFF [CPT-30032] VITAMIN B-12 [CPT-88667] IRON [CPT-30792] FERRITIN [CPT-47095] Folate (Folic Acid Serum) [CPT-33200] TIBC [CPT-67202] Follow-Up Return to clinic: 6 -8 weeks for follow up Clinical Visit Summary CompletedMedications:FEROSUL 325 (65 FE) MG ORAL TABLET (FERROUS SULFATE) take one tablet by mouth three daily #90[Tablet] x 2 Route:ORAL Entered and Authorized by: India SMALL Method used: Electronically to [id number]* (retail) [address] [place] [address] Note to Pharmacy: Route: ORAL; Indications: ANEMIA DUE TO BLOOD LOSS RxID: [id number]] Name Value Range Interpretation Code Description Data Azul rce(s) Supporting Document(s) ID Date Data Source [id number] 05/30/2019 04:30:00 PM [facility] Name Value Range Interpretation Code Description Data Azul rce(s) Supporting Document(s) HCT 33.0 % 36.0-47.0 L [facility] HGB 9.8 g/dL 12.0-15.5 L [facility] MCH 29.7 G/DL pg 32.0-36.5 L [facility] MCHC 21.9 PG % 27.0-33.0 L [facility] PLATELETS 381 10 10*3/mm3 150-450 N [facility] RBC 4.48 10 10*6/mm3 4.00-5.40 N [facility] RDW 17.0 % 11.5-14.5 H [facility] WBC TOTAL 7.9 4.0-10.0 N [facility] ID Date Data Source [id number] 05/30/2019 04:30:00 PM [facility] Name Value Range Interpretation Code Description Data Azul rce(s) Supporting Document(s) BG FASTING 88 mg/dL 70-100 [facility] y Health ID Date Data Source [id number] 05/30/2019 03:54:12 PM [facility] Measurements & CalculationsHeight: 62 inches (5 [...] seen another healthcare provider? Yes - in [place], Have you seen a dentist? NoIntake performed [...] during this visit, including review of any mfvo-qjr-tfzycee medications, herbal therapies, and/or supplements.Allergy ReviewAllergy List was reviewed and/or updated during this visit.Adult Preventive CareProvider Calculated and Reviewed all Clinical Protocols for patient today. Labs/Meds/Other Counseling-Nutrition and Physical Activity:BMI Interpretation: Obese (05/30/2019) Counseling: Done (05/30/2019) Physical Activity: Done (05/30/2019)Cancer Screening Pap Smear/HPV TestingReviewed: Previous Comments: patient says 8-10 months ago in [place]. would like a referral to a local software application tester. (02/20/2019)Review of Systems General: Complains of dizziness. [...] and frequent menstruation with irregular cycle (ICD-626.6) (TXX09-U22.1) Assessment: Instructions: We have ordered labs today. We have made a referral for you today. We will contact you to set this upNausea (ICD-787.02) (FQV57-I68.0) Assessment: Instructions: Please try to maintain adequate fluid intake. Please try to change your position slowly. please try to maintain bland diet for now.Dizziness (ICD-780.4) (WYE66-O98) Assessment: Instructions: Please try to maintain adequate fluid intake. Please try to change your position slowly.Anemia due to blood loss (ICD-280.0) (DPI82-W01.0) Assessment: Instructions: We have ordewred labs for you today. We will contact you with abnormal results. We have sent a prescription to start Iron medication please take medication as prescribed. Please try to maintain healthy diet to include foods rich in iron.Assessment not Saved Nausea (SPA31-C51.0): Patient Instructions/Care Plan: Excessive and frequent menstruation [...] Known Allergies (updated 02/20/2019) Orders:COMP METABOLIC PANEL [CPT-15371] CBC W/DIFF [CPT-04895] VITAMIN B-12 [CPT-96241] Folate (Folic Acid Serum) [CPT-16136] FERRITIN [CPT-71331] IRON [CPT-43338] TIBC [CPT-58437] Pearl Stringer [CPT-33527] 61200 - Venipuncture [CPT-85527] Adult - Ofc Vst, EST, Level IV [CPT-93806] Follow-Up Return to clinic: 3-4 weeks for follow up Clinical Visit Summary CompletedMedications:ALBUTEROL SULFATE HFA 108 (90 BASE) MCG/ACT INHALATION AEROSOL SOLUTION (ALBUTEROL SULFATE) 2 puffs for wheezing due to asthma. can use every 4-6 hours #1[Inhalation] x 2 Route:INHALATION Entered and Authorized by: India SMALL Method used: Electronically to [facility] (retail) [address] [address] Note to Pharmacy: Route: INH; RxID: [id number] 325 (65 FE) MG ORAL TABLET (FERROUS SULFATE) take one tablet by mouth twice daily #60[Tablet] x 2 Route:ORAL Entered and Authorized by: India SMALL Method used: Electronically to [facility]* (retail) [address] [address] Note to Pharmacy: Route: ORAL; Indications: ANEMIA DUE TO BLOOD LOSS RxID: [id number] Administered/Entered:Vaccination Group: InfluenzaHistorical Source: Historical information - [...] Never Smoker completed Never S moker eCW1 ([facility]) Smoking 02/26/2020 12:00:00 AM EST Never Smoker completed Never S moker eCW1 ([facility]) Smoking 11/15/2019 12:00:00 AM EDT Never Smoker completed Never S moker eCW1 ([facility]) Smoking 11/13/2019 12:00:00 AM EDT Patient has never smoked co mpleted Patient has never smoked MEDENT ([facility]) Smoking 10/11/2019 12:00:00 AM EDT Never Smoker completed Never S moker eCW1 ([facility]) Vital Signs ID Date Data Source UNK Name Value Range Interpretation Code Description Data Source(s) Diastolic blood pressure 72 mm[Hg] 72 mm[Hg] eCW1 ([facility]) Systolic blood pressure 116 mm[Hg] 116 mm[Hg] e CW1 ([facility]) Body mass index (BMI) [Ratio] 35.1 kg/m2 35.1 k g/m2 eCW1 ([facility]) Body height 61 [in_i] 61 [in_i] eCW1 ([facility]) Body weight 84.28 kg 84.28 kg eCW1 ([facility]) Body weight 185.8 [lb_av] 185.8 [lb_av] eCW1 ([facility]) Diastolic blood pressure 74 mm[Hg] 74 mm[Hg] eCW1 ([facility]) Systolic blood pressure 118 mm[Hg] 118 mm[Hg] e CW1 ([facility]) Body mass index (BMI) [Ratio] 34.72 kg/m2 34.72 kg/m2 eCW1 ([facility]) Body height 61 [in_i] 61 [in_i] eCW1 ([facility]) Body weight 183.8 [lb_av] 183.8 [lb_av] eCW1 ([facility]) Body weight 3442 [oz_av] 3442 [oz_av] SIMÓN ([facility]) Systolic blood pressure 134 mm[Hg] 134 mm[Hg] A THENA ([facility]) Body mass index (BMI) [Ratio] 39.3 kg/m2 39.3 k g/m2 SIMÓN ([facility]) Body height 62 [in_i] 62 [in_i] SIMÓN ([facility]) Diastolic blood pressure 86 mm[Hg] 86 mm[Hg] SIMÓN ([facility]) Diastolic blood pressure 68 mm[Hg] 68 mm[Hg] eCW1 ([facility]) Systolic blood pressure 112 mm[Hg] 112 mm[Hg] e CW1 ([facility]) Body mass index (BMI) [Ratio] 33.06 kg/m2 33.06 kg/m2 W1 ([facility]) Body height 61 [in_i] 61 [in_i] eCW1 ([facility]) Body weight 175 [lb_av] 175 [lb_av] eCW1 ([facility]) Body mass index (BMI) [Ratio] 33.1 kg/m2 33.1 k g/m2 MEDENT ([facility]) Body height 61 [in_i] 61 [in_i] MEDENT ([facility]) 5'1" Body weight 175.00 [lb_av] 175.00 [lb_av] MEDEN T ([facility]) Body temperature 99.0 [degF] 99.0 [degF] MEDENT ([facility]) Oxygen saturation in Arterial blood by Pulse oximetry 98 % 98 % MEDENT ([facility]) Respiratory rate 14 /min 14 /min MEDENT ( [facility]) Heart rate 97 /min 97 /min MEDENT ([facility]) Diastolic blood pressure 70 mm[Hg] 70 mm[Hg] MEDENT ([facility]) Systolic blood pressure 101 mm[Hg] 101 mm[Hg] M EDENT ([facility]) Diastolic blood pressure 62 mm[Hg] 62 mm[Hg] eCW1 ([facility]) Systolic blood pressure 102 mm[Hg] 102 mm[Hg] e CW1 ([facility]) Body mass index (BMI) [Ratio] 32.87 kg/m2 32.87 kg/m2 [facility] ([facility]) Body height 61 [in_i] 61 [in_i] W1 ([facility]) Body weight 174 [lb_av] 174 [lb_av] eCW1 ([facility]) Body mass index (BMI) [Ratio] 31.7 kg/m2 31.7 k g/m2 MEDENT ([facility]) Body weight 168.00 [lb_av] 168.00 [lb_av] MEDEN T ([facility]) Body height 61 [in_i] 61 [in_i] MEDENT ([facility]) 5'1" Body temperature 97.5 [degF] 97.5 [degF] MEDENT ([facility]) Body weight 2790.08 [oz_av] 2790.08 [oz_av] ATH ОЛЬГА ([facility]) Systolic blood pressure 126 mm[Hg] 126 mm[Hg] A THENA ([facility]) Body height 62 [in_i] 62 [in_i] SIMÓN ([facility]) Diastolic blood pressure 71 mm[Hg] 71 mm[Hg] SIMÓN ([facility]) Body weight 2768 [oz_av] 2768 [oz_av] SIMÓN ([facility]) Systolic blood pressure 99 mm[Hg] 99 mm[Hg] A THENA ([facility]) Body height 62 [in_i] 62 [in_i] SIMÓN ([facility]) Diastolic blood pressure 59 mm[Hg] 59 mm[Hg] SIMÓN ([facility]) Body mass index (BMI) [Ratio] 32.7 kg/m2 32.7 k g/m2 MEDENT ([facility]) Body height 61 [in_i] 61 [in_i] MEDENT ([facility]) 5'1" Body weight 173.00 [lb_av] 173.00 [lb_av] MEDEN T ([facility]) Body temperature 98.0 [degF] 98.0 [degF] MEDENT ([facility]) Oxygen saturation in Arterial blood by Pulse oximetry 98 % 98 % MEDENT ([facility]) Respiratory rate 16 /min 16 /min MEDENT ( [facility]) Heart rate 111 /min 111 /min MEDENT ([facility]) Diastolic blood pressure 68 mm[Hg] 68 mm[Hg] MEDENT ([facility]) Systolic blood pressure 100 mm[Hg] 100 mm[Hg] M EDENT ([facility]) Body weight 2768 [oz_av] 2768 [oz_av] SIMÓN ([facility]) Systolic blood pressure 111 mm[Hg] 111 mm[Hg] A THENA ([facility]) Body height 62 [in_i] 62 [in_i] SIMÓN ([facility]) Diastolic blood pressure 73 mm[Hg] 73 mm[Hg] SIMÓN ([facility]) Patient Treatment Plan of Care Planned Activity Planned Date Details Description Data Source (s) tramadol hydrochloride 50 MG Oral Tablet [Ultram] 04/11/2020 12: 00:00 AM EST eCW1 ([facility]) Ibuprofen 800 MG Oral Tablet 04/11/2020 12:00:00 AM EST eCW1 ([facility]) cetirizine hydrochloride 10 MG Oral Tablet SIMÓN ([facility])
[2020-05-22 16:20] LABS: BASO # 0.1 10^3/uL (0.0-0.2); BASO % 0.7 % (0.0-1.0); EOS # 0.7 10^3/uL (0.0-0.5); EOS % 7.2 % (0.0-3.0); HEMATOCRIT 43.3 % (36.0-47.0); HEMOGLOBIN 14.1 g/dl (12.0-15.5); LYMPH # 2.2 10^3/uL (1.5-5.0); MEAN CORPUSCULAR HEMOGLOBIN 28.8 pg (27.0-33.0); MEAN CORPUSCULAR HGB CONC 32.6 g/dl (32.0-36.5); MEAN CORPUSCULAR VOLUME 88.4 fl (80.0-96.0); MONO # 0.6 10^3/uL (0.0-0.8); MONO % 6.9 % (0.0-5.0); NEUTROPHILS # 5.4 10^3/uL (1.5-8.5); NEUTROPHILS % 59.9 % (36.0-66.0); PLATELET COUNT, AUTOMATED 273 10^3/uL (150-450)
[2020-05-22 17:56] VITALS: BP 141/63
--- NOTE | 2020-05-22 19:16 | ECGEPIP ---
[facility] - ED Test Date: 2020-05-22 Pat Name: SAAD MAHMOOD Department: Room: - Gender: Female [employer] Supervisor: RHIANNA : 1995 Requested By: SOSA Shelton PA-C Order Number: [id number] Reading MD: Faviola Cline Measurements Intervals [place] Rate: 79 P: 34 SD: 136 QRS: 26 QRSD: 91 T: 6 QT: 345 QTc: 397 Interpretive Statements SINUS RHYTHM No prior Electronically Signed on 05-22-2020 19:16:15 EST by Faviola Cline
== END 2020-05-22 18:19 | disposition home or self-care (01) ==
LOC: M ED 12:41
DX: U07.1 COVID-19 (principal); B34.9 Viral infection, unspecified; R51.9 Headache, unspecified; R11.0 Nausea; J45.909 Unspecified asthma, uncomplicated

== ENCOUNTER → 2020-06-19 | Outpatient (CLI) | payer OTHER ==
[~2020-06-19] MED LIST changes: +ALBU8.5H
--- NOTE | 2020-06-19 08:59 | REP ---
INDICATION: N83.201 RT OVARIAN CYST. COMPARISON: Comparison study April 09, 2020.. TECHNIQUE: Transabdominal and transvaginal scanning were performed. FINDINGS: Uterine dimensions are normal at is 8.5 x 5.0 x 6.2 cm. Endometrial echo is 0.8 cm thick and centrally placed. No free fluid is seen in the cul-de-sac. Visualized bladder muñoz are smooth. Uterus is somewhat retroverted. IUD is again noted in good position in the endometrium. The right ovary has dimensions of 3.3 x 2.0 x 3.3 cm. It's Doppler flow is normal with a resistive index of 0.44. There is a 2.1 x 1.4 x 1.8 cm cyst in the right ovary. This consistent with a ovarian follicle. The left ovary dimensions are normal as well at 3.5 x 1.9 x 1.9 cm. It's Doppler flow was normal with resistive index of 0.52. IMPRESSION: Normal pelvic sonography. IUD in place. 2.1 cm simple cyst in the right ovary consistent with follicle. <Electronically signed by Nikolay Mares > 06/19/20 0856
== END ==
LOC: M WHC 06:38
PROVIDERS: ATTEND Obstetrics & Gynecology
DX: N83.201 Unspecified ovarian cyst, right side (principal); Z97.5 Presence of (intrauterine) contraceptive device

== ENCOUNTER → 2020-07-01 | Outpatient (CLI) | payer OTHER | LOC: M LABSMTC 10:18 | PROVIDERS: ATTEND Anesthesiology | DX: Z01.818 Encounter for other preprocedural examination (principal); Z20.822 Contact with and (suspected) exposure to COVID-19 ==

== ENCOUNTER 2020-07-05 06:04 | Day surgery (SDC) | payer OTHER ==
[~2020-07-05] VITALS: Ht 154.9 cm; Wt 84.7 kg
[~2020-07-05 06:04] MED LIST changes: +LR 1,000 ML IV ONE
[2020-07-05 06:47] LABS: HEMATOCRIT 40.1 % (36.0-47.0); HEMOGLOBIN 13.1 g/dl (12.0-15.5); MEAN CORPUSCULAR HEMOGLOBIN 29.1 pg (27.0-33.0); MEAN CORPUSCULAR HGB CONC 32.7 g/dl (32.0-36.5); MEAN CORPUSCULAR VOLUME 89.1 fl (80.0-96.0); PLATELET COUNT, AUTOMATED 300 10^3/uL (150-450); WHITE BLOOD COUNT 5.8 10^3/uL (4.0-10.0)
[2020-07-05] MEDS ORDERED: FLON27.5 NARES (06:58)
[2020-07-05] MEDS ORDERED: MONT10TA10 PO (06:58)
[2020-07-05] MEDS ORDERED: METHYLENE BLUE 0.5% (5MG/ML) 10 ML AMP (PROVAYBLUE) As Ordered ONE (07:16)
[2020-07-05] MEDS ORDERED: BUPIVACAINE HCL 0.25% 30ML VIAL As Ordered ONE (07:16)
[2020-07-05] MEDS ORDERED: dexameTHASONE 4 MG/ML 1ML VIAL (J1100 PER 1MG) As Ordered ONE (07:19)
[2020-07-05] MEDS ORDERED: SUGAMMADEX SODIUM 500 MG/5 ML VIAL (BRIDION) As Ordered ONE (07:19)
[2020-07-05] MEDS ORDERED: ACETAMINOPHEN 1000MG 100ML IV BTL (OFIRMEV) (J0131 PER 10MG) As Ordered ONE (07:19)
[2020-07-05] MEDS ORDERED: LIDOCAINE 2% 100MG/5ML SDV (FOR ANES.) As Ordered ONE (07:19)
[2020-07-05] MEDS ORDERED: ROCURONIUM BROMIDE 50 MG/5 ML VIAL As Ordered ONE (07:19)
[2020-07-05] MEDS ORDERED: KETOROLAC 60MG 2ML VIAL As Ordered ONE (07:19)
[2020-07-05] MEDS ORDERED: ONDANSETRON 4MG/2ML VIAL As Ordered ONE (07:19)
[2020-07-05] MEDS ORDERED: propofoL 200 MG/20 ML VIAL As Ordered ONE (07:19)
[2020-07-05] MEDS ORDERED: fentaNYL 100 MCG/2 ML INJECTION (J3010) As Ordered ONE ×2 (07:20→08:24)
[2020-07-05] MEDS ORDERED: MIDAZOLAM INJ 2MG/2ML VIAL (J2250 PER 1MG) As Ordered ONE (07:20)
[2020-07-05 07:42] LABS: HCG, SERUM QUALITATIVE NEGATIVE (NEGATIVE)
[2020-07-05] MEDS ORDERED: LR 1,000 ML IV SCH ×2 (09:30→09:35)
[2020-07-05] MEDS ORDERED: ONDANSETRON 4MG/2ML VIAL IV PRN (09:30)
[2020-07-05] MEDS ORDERED: METOCLOPRAMIDE INJ 10MG/2ML VIAL (J2765 PER 1) IV PRN (09:30)
[2020-07-05] MEDS ORDERED: HYDROMORPHONE HCL 0.5 MG/ 0.5 ML SYRINGE (J1170 PER 1) IV PRN (09:30)
[2020-07-05] MEDS ORDERED: fentaNYL 100 MCG/2 ML INJECTION (J3010) IV PRN (09:30)
[2020-07-05] MEDS: oxyCODONE 5MG TAB PO PRN ×2 (09:45→10:18)
[2020-07-05 11:25] VITALS: BP 137/84
[2020-07-05] MEDS ORDERED: OXYC1TAB23 PO (12:58)
[2020-07-05] MEDS ORDERED: IBUP80TA PO (12:59)
[2020-07-05] MEDS ORDERED: COLA100C5 PO (13:00)
--- NOTE | 2020-07-05 17:10 | ROOPDOC ---
[facility] Report Of Operation Report of Operation DATE OF PROCEDURE: 07/05/20 PREPROCEDURE DIAGNOSES: Chronic pelvic pain, right side. Desired fertility. POSTPROCEDURE DIAGNOSES: Endometriosis (patent fallopian tubes bilaterally). PROCEDURE: Robotic-assisted laparoscopic lysis of adhesions, fulguration excision/biopsy of endometriosis and chromopertubation. IUD removal. SURGEON: Elaine Barnes DO HEATING AND AIR CONDITIONING MECHANIC: Naomie Pittman ANESTHESIA: GETA ESTIMATED BLOOD LOSS: Approximately 10 mL. UOP: 300mL IV: 1200mL LR PREOPERATIVE ANTIBIOTICS: none indicated COMPLICATIONS: none REMARKS/FINDINGS: Endometriotic implants/adhesions in the right uterosacral ligament and right ovarian fossa SPECIMENS: peritoneal biopsies PROCEDURE NOTE: The patient was counseled, consented on the respective benefits, indications and alternatives of the procedure. . Informed consent was obtained. . She was taken to the operating room with an IV running. She was placed on the operating table in the dorsal supine position. General anesthesia was administered and the airway secured without any difficulty. The patient was placed in the low lithotomy position. She was prepared and draped in the normal sterile fashion. Timeout was performed per protocol. Oscar catheter was placed under sterile conditions. Sterile speculum was placed with good visualization of the cervix. The IUD strings were visualized then grasped with [place] forceps. Downward traction was applied, thus removing the IUD in its entirety. The anterior lip of the cervix was grasped with a single- tooth tenaculum and downward traction was applied. The cervix was sequentially dilated with Santiago dilators. A ZUMI uterine manipulator was placed without any difficulty. The single-tooth tenaculum was removed. The speculum was removed. No vaginal bleeding was noted. Glove switch was performed, and attention was turned to the abdomen. An umbilical incision was made with the 11 blade. A Veress needle was placed. His incision and the abdomen was insufflated with gas. The robotic trochar/cannula was inserted through this incision without any difficulty. No incidental bleeding or injury was noted. The patient was placed in steep Trendelenburg. Additional 5 mm incisions were placed in the left and right upper quadrant, and through these incisions, a robotic trochar/cannula was inserted. The robot was docked without any difficulty. The right-sided endometrial implants were excised, fulgurated, and biopsied using the force bipolar instrument and monopolar olya. Excellent hemostasis was noted. No significant ovarian cyst was noted bilaterally. Chromopertubation was performed, demonstrating bilateral tubal patency. The fluid was suctioned. Gas was released from the abdomen. This patient was taken out of Trendelenburg. The cannulas were removed. Incisions were closed with 4- 0 Monocryl in subcuticular fashion and reinforced with Dermabond. . All instruments were removed from the vagina. No vaginal bleeding was noted. Sponge, needle and instrument counts were correct per protocol. The patient was transferred to the PACU in good and stable condition. DO NOAH Lemus JONATHAN R. DO Jul 05, 2020 17:10
== END 2020-07-05 12:13 | disposition home or self-care (01) ==
LOC: M SDC 06:04
PROVIDERS: ATTEND Obstetrics & Gynecology
DX: R10.2 Pelvic and perineal pain (principal); N80.9 Endometriosis, unspecified; D50.9 Iron deficiency anemia, unspecified; J45.909 Unspecified asthma, uncomplicated; F41.9 Anxiety disorder, unspecified; Z79.899 Other long term (current) drug therapy; Z91.013 Allergy to seafood
CPT/HCPCS: 36415; 58301; 58350; 58662; 84703; 85027; 86850; 86900; 86901; 88305; J0131; J1100; J1885; J2250; J2405; J3010; Q9968; S2900

== ENCOUNTER → 2020-08-06 | Outpatient (REF) | payer OTHER, MEDICAID ==
[~2020-08-06] MED LIST changes: +COLA100C5 PO; +FLON27.5 NARES; +IBUP80TA PO; -LR 1,000 ML IV ONE; +MONT10TA10 PO; +OXYC1TAB23 PO
[2020-08-06 12:07] LABS: BASO % 0.7 % (0.0-1.0); EOS # 0.3 10^3/uL (0.0-0.5); HEMATOCRIT 40.7 % (36.0-47.0); LYMPH # 1.7 10^3/uL (1.5-5.0); LYMPH % 30.7 % (24.0-44.0); MEAN CORPUSCULAR HEMOGLOBIN 28.1 pg (27.0-33.0); MEAN CORPUSCULAR HGB CONC 31.9 g/dl (32.0-36.5); MEAN CORPUSCULAR VOLUME 88.1 fl (80.0-96.0); MONO # 0.4 10^3/uL (0.0-0.8); MONO % 6.5 % (2.0-8.0); NEUTROPHILS # 3.2 10^3/uL (1.5-8.5); NEUTROPHILS % 55.9 % (36.0-66.0); PLATELET COUNT, AUTOMATED 322 10^3/uL (150-450); RED BLOOD COUNT 4.62 10^6/uL (4.00-5.40); WHITE BLOOD COUNT 5.7 10^3/uL (4.0-10.0)
[2020-08-06 12:41] LABS: ALBUMIN 3.7 GM/DL (3.2-5.2); ALT/SGPT 30 U/L (12-78); BILIRUBIN,TOTAL 0.7 MG/DL (0.2-1.0); BLOOD UREA NITROGEN 12 MG/DL (7-18); CALCIUM LEVEL 8.7 MG/DL (8.5-10.1); CARBON DIOXIDE LEVEL 29 MEQ/L (21-32); CHLORIDE LEVEL 104 MEQ/L (98-107); CHOLESTEROL LEVEL 156 MG/DL (<200); CREATININE FOR GFR 0.46 MG/DL (0.55-1.30); FREE T4 0.99 NG/DL (0.76-1.46); GLOMERULAR FILTRATION RATE > 60.0 (>60); GLUCOSE, FASTING 91 MG/DL (70-100); HDL CHOLESTEROL 50 MG/DL (>40); LDL CHOLESTEROL 96 MG/DL (<100); NON-HDL-C 106 MG/DL; POTASSIUM SERUM 4.3 MEQ/L (3.5-5.1); SODIUM LEVEL 137 MEQ/L (136-145); TOTAL 25(OH) VITAMIN D 17.4 NG/ML (30.0-100.0); TOTAL PROTEIN 7.3 GM/DL (6.4-8.2); TRIGLYCERIDES LEVEL 49 MG/DL (<150)
== END ==
LOC: M LAB REF 11:31
PROVIDERS: ATTEND Nurse Practitioner Family
DX: J45.909 Unspecified asthma, uncomplicated (principal); G89.29 Other chronic pain; K59.00 Constipation, unspecified; E66.9 Obesity, unspecified

== ENCOUNTER → 2021-02-06 | Outpatient (CLI) | payer OTHER ==
--- NOTE | 2021-02-07 23:31 | REPVR ---
PROCEDURE INFORMATION: Exam: MR Head Without Contrast Exam date and time: 02/06/2021 6:37 PM Age: 26 years old Clinical indication: Pain; Headache not specified; Additional info: SOUTH TECHNIQUE: Imaging protocol: MR of the head without contrast. COMPARISON: No relevant prior studies available. FINDINGS: Brain: No intracranial hemorrhage or extra-axial fluid collection. No evidence of mass effect or midline shift. No white matter abnormalities. No restricted diffusion to suggest acute infarct. Cerebral ventricles: Ventricles, cisterns, and sulci are normal. Bones/joints: Unremarkable. Paranasal sinuses: Normal as visualized. No acute sinusitis. Mastoid air cells: No mastoid effusion. Orbital cavity: Unremarkable. Soft tissues: Unremarkable. IMPRESSION: No acute intracranial findings. Electronically signed by: Ruslan Fitzgerald On 02/07/2021 23:30:32 PM
== END ==
LOC: M RAD 01-27 18:06
PROVIDERS: ATTEND Pediatrics
DX: R51.9 Headache, unspecified (principal)

== ENCOUNTER → 2021-05-12 | Outpatient (CLI) | payer OTHER ==
[~2021-05-12] MED LIST changes: -MONT10TA10 PO; +MONT10TA97 PO
== END ==
LOC: M WHC 12:01
PROVIDERS: ATTEND Obstetrics & Gynecology
DX: D25.9 Leiomyoma of uterus, unspecified (principal); R10.2 Pelvic and perineal pain

== ENCOUNTER 2021-06-25 14:58 | Emergency (ER) | payer OTHER, MEDICAID ==
[~2021-06-25] VITALS: Ht 154.9 cm; Wt 89.1 kg
[~2021-06-25 14:58] MED LIST changes: -CEPH500C PO
[2021-06-25 16:41] LABS: HEMATOCRIT 34.2 % (36.0-47.0); HEMOGLOBIN 10.5 g/dl (12.0-15.5); MEAN CORPUSCULAR HEMOGLOBIN 23.9 pg (27.0-33.0); MEAN CORPUSCULAR HGB CONC 30.7 g/dl (32.0-36.5); MEAN CORPUSCULAR VOLUME 77.9 fl (80.0-96.0); PLATELET COUNT, AUTOMATED 355 10^3/uL (150-450); RED BLOOD COUNT 4.39 10^6/uL (4.00-5.40); WHITE BLOOD COUNT 9.3 10^3/uL (4.0-10.0)
[2021-06-25 18:34] LABS: GC DNA AMPLIFICATION NEGATIVE (NEGATIVE)
[2021-06-25] MEDS ORDERED: CEPHALEXIN 500 MG CAP PO ONE (19:25)
[2021-06-25] MEDS ORDERED: CEPH500C PO (19:29)
[2021-06-25 19:40] VITALS: BP 120/70
== END 2021-06-25 19:48 | disposition home or self-care (01) ==
LOC: M ED 14:58
DX: O23.40 Unspecified infection of urinary tract in pregnancy, unspecified trimester (principal); O99.519 Diseases of the respiratory system complicating pregnancy, unspecified trimester; O99.212 Obesity complicating pregnancy, second trimester; Z86.2 Personal history of diseases of the blood and blood-forming organs and certain disorders involving the immune mechanism; Z79.899 Other long term (current) drug therapy; Z91.013 Allergy to seafood

== ENCOUNTER → 2021-06-25 | Outpatient (CLI) | payer OTHER, MEDICAID ==
[~2021-06-25] MED LIST changes: +CEPH500C PO
== END ==
LOC: M PLALAB 12:10
PROVIDERS: ATTEND Obstetrics & Gynecology
DX: Z32.01 Encounter for pregnancy test, result positive (principal)

== ENCOUNTER 2021-06-26 04:25 | Emergency (ER) | payer OTHER, MEDICAID ==
[~2021-06-26] VITALS: Ht 154.9 cm; Wt 88.7 kg
[~2021-06-26 04:25] MED LIST changes: +CEPH500C PO
[2021-06-26 04:53] LABS: BASO % 0.5 % (0.0-1.0); EOS # 0.5 10^3/uL (0.0-0.5); EOS % 6.1 % (0.0-3.0); HEMOGLOBIN 11.6 g/dl (12.0-15.5); LYMPH # 1.9 10^3/uL (1.5-5.0); LYMPH % 22.9 % (24.0-44.0); MEAN CORPUSCULAR HEMOGLOBIN 24.1 pg (27.0-33.0); MEAN CORPUSCULAR HGB CONC 30.5 g/dl (32.0-36.5); MONO # 0.6 10^3/uL (0.0-0.8); MONO % 7.8 % (2.0-8.0); NEUTROPHILS # 5.1 10^3/uL (1.5-8.5); NEUTROPHILS % 62.5 % (36.0-66.0); PLATELET COUNT, AUTOMATED 381 10^3/uL (150-450); RED BLOOD COUNT 4.81 10^6/uL (4.00-5.40); WHITE BLOOD COUNT 8.1 10^3/uL (4.0-10.0)
[2021-06-26 05:16] LABS: BLOOD UREA NITROGEN 13 MG/DL (7-18); CALCIUM LEVEL 8.9 MG/DL (8.5-10.1); CARBON DIOXIDE LEVEL 28 MEQ/L (21-32); CHLORIDE LEVEL 107 MEQ/L (98-107); CREATININE FOR GFR 0.59 MG/DL (0.55-1.30); GLOMERULAR FILTRATION RATE > 60.0 (>60); GLUCOSE, FASTING 90 MG/DL (70-100); HCG, SERUM QUANTITATIVE 29 MIU/ML; SODIUM LEVEL 140 MEQ/L (136-145)
[2021-06-26 07:19] VITALS: BP 140/72
== END 2021-06-26 07:20 | disposition home or self-care (01) ==
LOC: M ED 04:25
DX: O03.9 Complete or unspecified spontaneous abortion without complication (principal); O23.41 Unspecified infection of urinary tract in pregnancy, first trimester; O99.511 Diseases of the respiratory system complicating pregnancy, first trimester; Z79.899 Other long term (current) drug therapy; Z91.013 Allergy to seafood

== ENCOUNTER → 2021-06-30 | Outpatient (CLI) | payer OTHER | LOC: M PLALAB 08:45 | PROVIDERS: ATTEND Physician Assistant | DX: R10.9 Unspecified abdominal pain (principal) ==

== ENCOUNTER 2021-07-21 10:04 | Emergency (ER) | payer OTHER ==
[~2021-07-21] VITALS: Ht 154.9 cm; Wt 89.8 kg
[2021-07-21] MEDS ORDERED: KETOROLAC TROMETHAMINE 10 MG TAB PO ONE (11:50)
[2021-07-21 12:14] LABS: BASO # 0.1 10^3/uL (0.0-0.2); BASO % 0.6 % (0.0-1.0); EOS # 0.7 10^3/uL (0.0-0.5); EOS % 7.4 % (0.0-3.0); HEMATOCRIT 35.3 % (36.0-47.0); HEMOGLOBIN 11.1 g/dl (12.0-15.5); LYMPH # 2.1 10^3/uL (1.5-5.0); MEAN CORPUSCULAR HGB CONC 31.4 g/dl (32.0-36.5); MEAN CORPUSCULAR VOLUME 76.4 fl (80.0-96.0); MONO # 0.7 10^3/uL (0.0-0.8); MONO % 7.5 % (2.0-8.0); NEUTROPHILS # 5.4 10^3/uL (1.5-8.5); NEUTROPHILS % 60.3 % (36.0-66.0); PLATELET COUNT, AUTOMATED 348 10^3/uL (150-450); RED BLOOD COUNT 4.62 10^6/uL (4.00-5.40); WHITE BLOOD COUNT 8.9 10^3/uL (4.0-10.0)
[2021-07-21 12:49] LABS: ALBUMIN 3.6 GM/DL (3.2-5.2); ALT/SGPT 23 U/L (12-78); BILIRUBIN,TOTAL 0.6 MG/DL (0.2-1.0); BLOOD UREA NITROGEN 11 MG/DL (7-18); CALCIUM LEVEL 8.9 MG/DL (8.5-10.1); CARBON DIOXIDE LEVEL 25 MEQ/L (21-32); CHLORIDE LEVEL 109 MEQ/L (98-107); CREATININE FOR GFR 0.51 MG/DL (0.55-1.30); GLOMERULAR FILTRATION RATE > 60.0 (>60); GLUCOSE, FASTING 102 MG/DL (70-100); SODIUM LEVEL 140 MEQ/L (136-145); TOTAL PROTEIN 7.3 GM/DL (6.4-8.2)
[2021-07-21 14:04] VITALS: BP 134/64
== END 2021-07-21 14:05 | disposition home or self-care (01) ==
LOC: M ED 10:04
DX: R10.2 Pelvic and perineal pain (principal); F41.8 Other specified anxiety disorders; J45.909 Unspecified asthma, uncomplicated; Z91.013 Allergy to seafood; Z79.51 Long term (current) use of inhaled steroids; Z79.899 Other long term (current) drug therapy

== ENCOUNTER 2021-10-06 07:00 | Emergency (ER) | payer OTHER ==
[~2021-10-06] VITALS: Ht 154.9 cm; Wt 89.3 kg
[2021-10-06] MEDS ORDERED: METH-1164 PO (12:05)
[2021-10-06 12:13] VITALS: BP 106/58
== END 2021-10-06 12:00 | disposition home or self-care (01) ==
LOC: M ED 07:00
DX: S39.012A Strain of muscle, fascia and tendon of lower back, initial encounter (principal); F41.9 Anxiety disorder, unspecified; Z91.013 Allergy to seafood; Y93.9 Activity, unspecified; Y92.9 Unspecified place or not applicable

== ENCOUNTER 2021-11-27 06:15 | Emergency (ER) | payer OTHER ==
[~2021-11-27] VITALS: Ht 154.9 cm; Wt 86.8 kg
[~2021-11-27 06:15] MED LIST changes: +METH-1164 PO
[2021-11-27 08:28] LABS: BASO % 0.6 % (0.0-1.0); EOS # 0.2 10^3/uL (0.0-0.5); EOS % 3.3 % (0.0-3.0); HEMATOCRIT 34.8 % (36.0-47.0); HEMOGLOBIN 10.4 g/dl (12.0-15.5); LYMPH # 1.7 10^3/uL (1.5-5.0); LYMPH % 24.4 % (24.0-44.0); MEAN CORPUSCULAR HGB CONC 29.9 g/dl (32.0-36.5); MONO # 0.6 10^3/uL (0.0-0.8); NEUTROPHILS # 4.4 10^3/uL (1.5-8.5); NEUTROPHILS % 63.6 % (36.0-66.0); PLATELET COUNT, AUTOMATED 342 10^3/uL (150-450); RED BLOOD COUNT 4.52 10^6/uL (4.00-5.40)
[2021-11-27 11:31] VITALS: BP 113/61
== END 2021-11-27 11:30 | disposition home or self-care (01) ==
LOC: M ED 06:15
DX: O28.8 Other abnormal findings on antenatal screening of mother (principal); N93.9 Abnormal uterine and vaginal bleeding, unspecified; J45.909 Unspecified asthma, uncomplicated; Z91.013 Allergy to seafood; Z3A.01 Less than 8 weeks gestation of pregnancy

== ENCOUNTER 2021-12-07 21:24 | Emergency (ER) | payer OTHER ==
[~2021-12-07] VITALS: Ht 154.9 cm; Wt 84.7 kg
[2021-12-07] MEDS ORDERED: METO5TAB2 (21:41)
[2021-12-08 00:21] LABS: BASO % 0.4 % (0.0-1.0); EOS # 0.3 10^3/uL (0.0-0.5); EOS % 3.6 % (0.0-3.0); HEMATOCRIT 30.4 % (36.0-47.0); HEMOGLOBIN 9.6 g/dl (12.0-15.5); LYMPH # 2.2 10^3/uL (1.5-5.0); LYMPH % 27.7 % (24.0-44.0); MEAN CORPUSCULAR HEMOGLOBIN 24.3 pg (27.0-33.0); MEAN CORPUSCULAR HGB CONC 31.6 g/dl (32.0-36.5); MONO # 0.7 10^3/uL (0.0-0.8); MONO % 8.6 % (2.0-8.0); NEUTROPHILS # 4.6 10^3/uL (1.5-8.5); NEUTROPHILS % 59.3 % (36.0-66.0); PLATELET COUNT, AUTOMATED 369 10^3/uL (150-450); RED BLOOD COUNT 3.95 10^6/uL (4.00-5.40); WHITE BLOOD COUNT 7.8 10^3/uL (4.0-10.0)
[2021-12-08 00:34] LABS: INR 1.12; PROTHROMBIN TIME 14.8 SECONDS (12.7-14.5)
[2021-12-08 00:56] LABS: ALBUMIN 3.3 GM/DL (3.2-5.2); ALT/SGPT 23 U/L (12-78); BILIRUBIN,DIRECT 0.2 MG/DL (0.0-0.2); BILIRUBIN,TOTAL 0.5 MG/DL (0.2-1.0); BLOOD UREA NITROGEN 6 MG/DL (7-18); CALCIUM LEVEL 8.9 MG/DL (8.5-10.1); CARBON DIOXIDE LEVEL 26 MEQ/L (21-32); CHLORIDE LEVEL 105 MEQ/L (98-107); CREATININE FOR GFR 0.51 MG/DL (0.55-1.30); GLOMERULAR FILTRATION RATE > 60.0 (>60); GLUCOSE, FASTING 86 MG/DL (70-100); LIPASE 90 U/L (73-393); POTASSIUM SERUM 3.6 MEQ/L (3.5-5.1); SODIUM LEVEL 137 MEQ/L (136-145); TOTAL PROTEIN 7.2 GM/DL (6.4-8.2)
[2021-12-08 00:58] LABS: CK-MB VALUE MASS < 1.0 NG/ML (<3.6); CPK CREATINE PHOSPHOKINASE 121 U/L (26-192); MB/CK RELATIVE INDEX 0.83 (< OR =4)
[2021-12-08 01:19] VITALS: BP 103/59
== END 2021-12-08 01:30 | disposition home or self-care (01) ==
LOC: M ED 21:24
DX: R07.9 Chest pain, unspecified (principal); K21.9 Gastro-esophageal reflux disease without esophagitis; J45.909 Unspecified asthma, uncomplicated; F41.9 Anxiety disorder, unspecified; Z91.013 Allergy to seafood; Z79.899 Other long term (current) drug therapy

== ENCOUNTER → 2021-12-10 | Outpatient (CLI) | payer OTHER ==
[~2021-12-10] MED LIST changes: +METO5TAB2
[2021-12-10 15:49] LABS: BASO % 0.5 % (0.0-1.0); EOS # 0.2 10^3/uL (0.0-0.5); EOS % 2.7 % (0.0-3.0); HEMATOCRIT 33.3 % (36.0-47.0); HEMOGLOBIN 10.1 g/dl (12.0-15.5); LYMPH # 1.5 10^3/uL (1.5-5.0); LYMPH % 18.9 % (24.0-44.0); MEAN CORPUSCULAR HEMOGLOBIN 23.6 pg (27.0-33.0); MEAN CORPUSCULAR HGB CONC 30.3 g/dl (32.0-36.5); MEAN CORPUSCULAR VOLUME 77.8 fl (80.0-96.0); MONO # 0.6 10^3/uL (0.0-0.8); MONO % 7.2 % (2.0-8.0); NEUTROPHILS # 5.7 10^3/uL (1.5-8.5); NEUTROPHILS % 70.3 % (36.0-66.0); PLATELET COUNT, AUTOMATED 387 10^3/uL (150-450); RED BLOOD COUNT 4.28 10^6/uL (4.00-5.40); WHITE BLOOD COUNT 8.2 10^3/uL (4.0-10.0)
[2021-12-10 17:12] LABS: GC DNA AMPLIFICATION NEGATIVE (NEGATIVE)
[2021-12-10 17:45] LABS: HEPATITIS C VIRUS ABY INDEX 0.1 INDEX (<0.8); HIV 1&2 SCREEN CENTAUR NEGATIVE (NEGATIVE)
== END ==
LOC: M PLALAB 12:59
PROVIDERS: ATTEND Obstetrics & Gynecology
DX: O34.211 Maternal care for low transverse scar from previous cesarean delivery (principal)

== ENCOUNTER → 2022-01-07 | Outpatient (CLI) | payer OTHER | LOC: M PLALAB 14:51 | PROVIDERS: ATTEND Obstetrics & Gynecology | DX: Z36.9 Encounter for antenatal screening, unspecified (principal) ==

== ENCOUNTER 2022-01-30 11:54 | Emergency (ER) | payer OTHER ==
[~2022-01-30] VITALS: Ht 154.9 cm; Wt 86.4 kg
[2022-01-30 16:10] LABS: BASO % 0.4 % (0.0-1.0); EOS # 0.7 10^3/uL (0.0-0.5); EOS % 8.5 % (0.0-3.0); HEMOGLOBIN 8.9 g/dl (12.0-15.5); LYMPH # 1.8 10^3/uL (1.5-5.0); LYMPH % 21.7 % (24.0-44.0); MEAN CORPUSCULAR HEMOGLOBIN 23.2 pg (27.0-33.0); MEAN CORPUSCULAR HGB CONC 30.7 g/dl (32.0-36.5); MEAN CORPUSCULAR VOLUME 75.5 fl (80.0-96.0); MONO # 0.7 10^3/uL (0.0-0.8); MONO % 7.9 % (2.0-8.0); NEUTROPHILS # 5.1 10^3/uL (1.5-8.5); NEUTROPHILS % 61.1 % (36.0-66.0); PLATELET COUNT, AUTOMATED 280 10^3/uL (150-450); RED BLOOD COUNT 3.84 10^6/uL (4.00-5.40); WHITE BLOOD COUNT 8.3 10^3/uL (4.0-10.0)
[2022-01-30 16:41] LABS: ALBUMIN 2.5 GM/DL (3.2-5.2); ALT/SGPT 21 U/L (12-78); BILIRUBIN,DIRECT < 0.1 MG/DL (0.0-0.2); BILIRUBIN,TOTAL 0.2 MG/DL (0.2-1.0); BLOOD UREA NITROGEN 9 MG/DL (7-18); CALCIUM LEVEL 8.2 MG/DL (8.5-10.1); CARBON DIOXIDE LEVEL 24 MEQ/L (21-32); CHLORIDE LEVEL 103 MEQ/L (98-107); CREATININE FOR GFR 0.39 MG/DL (0.55-1.30); GLOMERULAR FILTRATION RATE > 60.0 (>60); GLUCOSE, FASTING 101 MG/DL (70-100); POTASSIUM SERUM 3.5 MEQ/L (3.5-5.1); SODIUM LEVEL 133 MEQ/L (136-145); TOTAL PROTEIN 6.6 GM/DL (6.4-8.2); URIC ACID 2.9 MG/DL (2.6-6.0)
[2022-01-30 16:53] LABS: ERYTHROCYTE SEDIMENTATION RATE 52 mm/hr (0-20)
[2022-01-30 17:37] LABS: TOTAL PROTEIN,RANDOM URINE 12.1 MG/DL (0.0-12.0)
[2022-01-30] MEDS ORDERED: FERR324T2 PO (17:57)
[2022-01-30 18:24] VITALS: BP 114/68
[2022-01-30 19:26] LABS: PERCENT SATURATION 3.4 % (13.2-45.0)
== END 2022-01-30 18:25 | disposition home or self-care (01) ==
LOC: M ED 11:54
DX: O99.012 Anemia complicating pregnancy, second trimester (principal); J45.909 Unspecified asthma, uncomplicated; F41.9 Anxiety disorder, unspecified; Z91.013 Allergy to seafood; Z3A.15 15 weeks gestation of pregnancy; Z79.51 Long term (current) use of inhaled steroids

== ENCOUNTER 2022-02-09 12:15 | Outpatient (CLI) | payer OTHER ==
[~2022-02-09] VITALS: Ht 154.9 cm; Wt 86.4 kg
[2022-02-09 12:15] VITALS: BP 129/63
[~2022-02-09 12:15] MED LIST changes: +FERR324T2 PO
[2022-02-09] MEDS ORDERED: IRON SUCROSE 500 MG in NS 250 ML OVER 4 HRS IV ONE (12:30)
[2022-02-09 13:30] VITALS: BP 129/58
[2022-02-09] MEDS ORDERED: GNP28TAB2 PO (13:31)
[2022-02-09 14:30] VITALS: BP 116/57
[2022-02-09 15:30] VITALS: BP 122/56
[2022-02-09 16:55] VITALS: BP 145/74
[2022-02-09 17:21] VITALS: BP 128/80
== END 2022-02-09 17:20 | disposition home or self-care (01) ==
LOC: M INFU 12:15
PROVIDERS: ATTEND Advanced Practice Midwife
DX: D64.9 Anemia, unspecified (principal); Z91.013 Allergy to seafood
CPT/HCPCS: 96365; 96366; J1756

== ENCOUNTER → 2022-03-02 | Outpatient (CLI) | payer OTHER ==
[~2022-03-02] MED LIST changes: +GNP28TAB2 PO
== END ==
LOC: M WHC 08:54
PROVIDERS: ATTEND Obstetrics & Gynecology
DX: O34.211 Maternal care for low transverse scar from previous cesarean delivery (principal)

== ENCOUNTER → 2022-04-06 | Outpatient (CLI) | payer OTHER | LOC: M WHC 08:41 | PROVIDERS: ATTEND Advanced Practice Midwife | DX: Z34.82 Encounter for supervision of other normal pregnancy, second trimester (principal); Z3A.25 25 weeks gestation of pregnancy ==

== ENCOUNTER → 2022-04-29 | Outpatient (CLI) | payer OTHER | LOC: M WHC 13:12 | PROVIDERS: ATTEND Advanced Practice Midwife | DX: Z34.82 Encounter for supervision of other normal pregnancy, second trimester (principal); Z3A.28 28 weeks gestation of pregnancy ==

== ENCOUNTER → 2022-05-05 | Outpatient (CLI) | payer OTHER ==
[2022-05-05 14:20] LABS: HEMATOCRIT 29.7 % (36.0-47.0); HEMOGLOBIN 8.7 g/dl (12.0-15.5); MEAN CORPUSCULAR HEMOGLOBIN 23.3 pg (27.0-33.0); MEAN CORPUSCULAR HGB CONC 29.3 g/dl (32.0-36.5); MEAN CORPUSCULAR VOLUME 79.6 fl (80.0-96.0); PLATELET COUNT, AUTOMATED 278 10^3/uL (150-450); RED BLOOD COUNT 3.73 10^6/uL (4.00-5.40); WHITE BLOOD COUNT 7.4 10^3/uL (4.0-10.0)
== END ==
LOC: M PLALAB 09:01
PROVIDERS: ATTEND Advanced Practice Midwife
DX: Z34.82 Encounter for supervision of other normal pregnancy, second trimester (principal); Z3A.00 Weeks of gestation of pregnancy not specified

== ENCOUNTER → 2022-05-12 | Outpatient (CLI) | payer OTHER | LOC: M LAB 06:28 | PROVIDERS: ATTEND Advanced Practice Midwife | DX: O99.810 Abnormal glucose complicating pregnancy (principal) ==

== ENCOUNTER → 2022-05-27 | Outpatient (CLI) | payer OTHER ==
[2022-05-27 18:08] LABS: PERCENT SATURATION 3.7 % (13.2-45.0)
[2022-05-27 18:12] LABS: FERRITIN 3.4 NG/ML (7.3-270.7)
== END ==
LOC: M PLALAB 13:55
PROVIDERS: ATTEND Advanced Practice Midwife
DX: O99.019 Anemia complicating pregnancy, unspecified trimester (principal)

== ENCOUNTER 2022-06-15 11:03 | Outpatient (CLI) | payer OTHER ==
[2022-06-15 11:25] VITALS: BP 110/59
[2022-06-15] MEDS ORDERED: IRON SUCROSE 500 MG in NS 250 ML OVER 4 HRS IV ONE (11:30)
[2022-06-15 12:10] VITALS: BP 96/60
[2022-06-15 13:10] VITALS: BP 114/57
[2022-06-15 14:10] VITALS: BP 108/54
[2022-06-15 15:50] VITALS: BP 110/57
== END 2022-06-15 16:05 | disposition home or self-care (01) ==
LOC: M INFU 11:03
PROVIDERS: ATTEND Obstetrics & Gynecology
DX: D64.9 Anemia, unspecified (principal); Z91.013 Allergy to seafood
CPT/HCPCS: 96365; 96366; J1756

== ENCOUNTER 2022-06-22 09:30 | Outpatient (CLI) | payer OTHER ==
[2022-06-22 09:30] VITALS: BP 130/59
[~2022-06-22 09:30] MED LIST changes: +IRON SUCROSE 500 MG in NS 250 ML OVER 4 HRS IV ONE
[2022-06-22 11:30] VITALS: BP 140/64
[2022-06-22 12:30] VITALS: BP 140/64
== END 2022-06-22 14:00 | disposition home or self-care (01) ==
LOC: M INFU 09:30
PROVIDERS: ATTEND Obstetrics & Gynecology
DX: D64.9 Anemia, unspecified (principal); Z91.013 Allergy to seafood
CPT/HCPCS: 96365; 96366; J1756

== ENCOUNTER → 2022-06-24 | Outpatient (REF) | payer OTHER ==
[~2022-06-24] MED LIST changes: -IRON SUCROSE 500 MG in NS 250 ML OVER 4 HRS IV ONE
== END ==
LOC: M PLALAB 13:50
PROVIDERS: ATTEND Obstetrics & Gynecology
DX: Z36.85 Encounter for antenatal screening for Streptococcus B (principal)

== ENCOUNTER 2022-06-29 09:25 | Outpatient (CLI) | payer OTHER ==
[~2022-06-29] VITALS: Ht 154.9 cm; Wt 92.0 kg
[2022-06-29 09:15] VITALS: BP 115/53
[2022-06-29] MEDS ORDERED: IRON SUCROSE 500 MG in NS 250 ML OVER 4 HRS IV ONE (09:30)
[2022-06-29 11:00] VITALS: BP 132/70
[2022-06-29 12:00] VITALS: BP 123/69
[2022-06-29 14:00] VITALS: BP 163/72
== END 2022-06-29 14:00 | disposition home or self-care (01) ==
LOC: M INFU 09:25
PROVIDERS: ATTEND Obstetrics & Gynecology
DX: D64.9 Anemia, unspecified (principal); Z91.013 Allergy to seafood
CPT/HCPCS: 96365; 96366; J1756

== ENCOUNTER 2022-06-29 14:11 | Outpatient (CLI) | payer OTHER ==
[2022-06-29] VITALS (11 sets, daily range): BP systolic 112–176; BP diastolic 55–91
[~2022-06-29] VITALS: Ht 154.9 cm; Wt 90.6 kg
[2022-06-29 16:54] LABS: HEMATOCRIT 34.2 % (36.0-47.0); HEMOGLOBIN 9.9 g/dl (12.0-15.5); MEAN CORPUSCULAR HEMOGLOBIN 23.5 pg (27.0-33.0); MEAN CORPUSCULAR HGB CONC 28.9 g/dl (32.0-36.5); MEAN CORPUSCULAR VOLUME 81.2 fl (80.0-96.0); PLATELET COUNT, AUTOMATED 269 10^3/uL (150-450); RED BLOOD COUNT 4.21 10^6/uL (4.00-5.40); WHITE BLOOD COUNT 10.9 10^3/uL (4.0-10.0)
[2022-06-29] MEDS ORDERED: LR 1,000 ML IV ONE (17:00)
[2022-06-29 17:27] LABS: ALT/SGPT 15 U/L (7.0-40); AST/SGOT 17 U/L (<34); BILIRUBIN,TOTAL 0.8 MG/DL (0.3-1.2); GLOMERULAR FILTRATION RATE > 60.0 (>60); LDH LACTATE DEHYDROGENASE 235 U/L (120-246)
[2022-06-29 17:28] LABS: URIC ACID 5.4 MG/DL (3.1-7.8)
[2022-06-29 17:28] LABS: CREATININE,RANDOM URINE 21.2 MG/DL
[2022-06-29 17:29] LABS: TOTAL PROTEIN,RANDOM URINE < 6.0 MG/DL (0.0-14.0)
[2022-06-29] MEDS ORDERED: LR 1,000 ML IV SCH (18:00)
[2022-06-29] MEDS ORDERED: diphenhydrAMINE 50MG CAP PO ONE (22:55)
[2022-06-30 02:36] VITALS: BP 118/65
[2022-06-30 07:13] VITALS: BP 123/66
[2022-06-30 09:30] VITALS: BP 132/73
== END 2022-06-30 10:15 | disposition home or self-care (01) ==
LOC: M LDO 14:11
PROVIDERS: ATTEND Advanced Practice Midwife
DX: O47.1 False labor at or after 37 completed weeks of gestation (principal); O99.013 Anemia complicating pregnancy, third trimester; D64.9 Anemia, unspecified; O34.219 Maternal care for unspecified type scar from previous cesarean delivery; Z3A.37 37 weeks gestation of pregnancy

== ENCOUNTER 2022-07-04 09:14 | Outpatient (CLI) | payer OTHER ==
[~2022-07-04] VITALS: Ht 154.9 cm; Wt 91.5 kg
[2022-07-04 09:37] VITALS: BP 124/67
[2022-07-04] MEDS ORDERED: HOME MED LIST COMPLETE! XX SCH (09:45)
== END 2022-07-04 10:12 | disposition home or self-care (01) ==
LOC: M LDO 09:14
PROVIDERS: ATTEND Specialist
DX: O36.8130 Decreased fetal movements, third trimester, not applicable or unspecified (principal); Z3A.37 37 weeks gestation of pregnancy
CPT/HCPCS: 59025; 76815; G0463

== ENCOUNTER 2022-07-08 17:23 | Outpatient (CLI) | payer OTHER ==
[~2022-07-08] VITALS: Ht 154.9 cm; Wt 92.4 kg
[2022-07-08 17:40] VITALS: BP 122/64
== END 2022-07-08 18:51 | disposition home or self-care (01) ==
LOC: M LDO 17:23
PROVIDERS: ATTEND Advanced Practice Midwife
DX: O47.1 False labor at or after 37 completed weeks of gestation (principal); O34.219 Maternal care for unspecified type scar from previous cesarean delivery; Z3A.38 38 weeks gestation of pregnancy
CPT/HCPCS: 59025; G0463

== ENCOUNTER 2022-07-18 11:28 | Inpatient (IN) | payer OTHER ==
[2022-07-18] VITALS (20 sets, daily range): BP systolic 94–156; BP diastolic 51–76
[~2022-07-18] VITALS: Ht 154.9 cm; Wt 92.3 kg
[2022-07-18] MEDS ORDERED: OXYTOCIN DRIP 30 UNITS in IV 1 EA IV SCH (12:05)
[2022-07-18] MEDS ORDERED: METHYLERGONOVINE MALEATE 0.2MG/ML 1ML VIAL IM PRN (12:05)
[2022-07-18] MEDS ORDERED: TRANEXAMIC ACID INJection 1,000 MG in NS 100 ML IV PRN (12:05)
[2022-07-18] MEDS ORDERED: LIDOCAINE 1% MDV 20ML VIAL INFIL PRN (12:05)
[2022-07-18] MEDS ORDERED: OXYTOCIN DRIP 30 UNITS in IV 1 EA IV PRN (12:05)
[2022-07-18] MEDS: LR 1,000 ML IV SCH ×2 (13:43→20:49)
[2022-07-18 14:30] LABS: HEMATOCRIT 35.8 % (36.0-47.0); MEAN CORPUSCULAR HEMOGLOBIN 26.1 pg (27.0-33.0); MEAN CORPUSCULAR HGB CONC 30.7 g/dl (32.0-36.5); MEAN CORPUSCULAR VOLUME 84.8 fl (80.0-96.0); PLATELET COUNT, AUTOMATED 241 10^3/uL (150-450); RED BLOOD COUNT 4.22 10^6/uL (4.00-5.40); WHITE BLOOD COUNT 5.4 10^3/uL (4.0-10.0)
[2022-07-18] MEDS ORDERED: ONDANSETRON 4MG 2ML VIAL IV PRN (19:30)
[2022-07-18] MEDS ORDERED: ePHEDrine SULFATE 25 MG/5 ML(5MG/ML) SYRINGE IVP PRN (19:30)
[2022-07-18] MEDS ORDERED: NALOXONE INJ 0.4MG/1ML VIAL IV PRN (19:30)
[2022-07-18] MEDS ORDERED: LR 500 ML IV PRN (19:30)
[2022-07-18] MEDS ORDERED: diphenhydrAMINE 50MG/ML VIAL IV PRN (19:30)
[2022-07-18] MEDS ORDERED: EPIDURAL/PCA KEYS XX PRN (19:30)
[2022-07-18] MEDS ORDERED: FENTANYL 2MCG/ML ROPIVACAINE 0.2% IN 0.9% NACL 100ML IVBAG As Ordered ONE (19:47)
[2022-07-18] MEDS: FENTANYL/ROPIVACAINE/NACL BAG 100 ML EPIDURAL SCH (20:46)
[2022-07-18] MEDS ORDERED: ANUSOL HC CREAM 30GM TOP PRN (21:15)
[2022-07-18] MEDS ORDERED: DIBUCAINE 1% OINTMENT 30GM TOP PRN (21:15)
[2022-07-18] MEDS ORDERED: METHYLERGONOVINE MALEATE 0.2 MG TAB PO PRN (21:15)
[2022-07-18] MEDS: OXYTOCIN DRIP 30 UNITS in IV 1 EA IV SCH (21:15)
[2022-07-18] MEDS ORDERED: DOCUSATE SODIUM 100MG CAPSULE PO PRN (21:15)
[2022-07-18] MEDS ORDERED: ACETAMINOPHEN TAB 650MG DOSE (2X325MG) PO PRN (21:15)
[2022-07-18] MEDS ORDERED: IBUPROFEN 600MG TAB PO PRN (21:15)
[2022-07-18] MEDS ORDERED: MOM 30ML SUSPENSION UDC PO PRN (21:15)
[2022-07-18] MEDS ORDERED: ACETAMINOPHEN 500 MG TAB PO PRN (21:15)
[2022-07-18] MEDS ORDERED: RHOGAM 300MCG (1500IU) INJ IM SCH (21:15)
[2022-07-19] MEDS: IBUPROFEN 800 MG TAB PO PRN (03:16)
[2022-07-19] MEDS: LR 1,000 ML IV SCH (04:05)
[2022-07-19] MEDS: FENTANYL/ROPIVACAINE/NACL BAG 100 ML EPIDURAL SCH (05:30)
[2022-07-19 06:00] VITALS: BP 116/59
[2022-07-19] MEDS: PRENATAL VITAMINS CHEWABLE TABLET PO SCH (08:39)
[2022-07-19 18:00] VITALS: BP 114/71
[2022-07-20 06:00] VITALS: BP 113/59
[2022-07-20] MEDS: IBUPROFEN 800 MG TAB PO PRN (06:20)
[2022-07-20] MEDS: PRENATAL VITAMINS CHEWABLE TABLET PO SCH (08:06)
[2022-07-20] MEDS ORDERED: MEASLES,MUMPS,RUBELLA VACCINE INJ (MMR-II) SC.IMMUN ONE (09:00)
[2022-07-20] MEDS ORDERED: ACET-683 PO (11:46)
[2022-07-20] MEDS ORDERED: IBUP80TA PO (11:46)
== END 2022-07-20 13:34 | disposition home or self-care (01) | DRG 560 ==
LOC: M LDI 11:28 → M OBS 23:08
PROVIDERS: ADMIT Obstetrics & Gynecology; ATTEND Obstetrics & Gynecology
PROC: 10E0XZZ Delivery of Products of Conception, External Approach (ICD-10-PCS; principal; 2022-07-18)
PROC: 3E033VJ Introduction of Other Hormone into Peripheral Vein, Percutaneous Approach (ICD-10-PCS; 2022-07-18)
PROC: 3E0P7VZ Introduction of Hormone into Female Reproductive, Via Natural or Artificial Opening (ICD-10-PCS; 2022-07-18)
DX: O34.211 Maternal care for low transverse scar from previous cesarean delivery (principal); Z37.0 Single live birth; Z3A.39 39 weeks gestation of pregnancy

== ENCOUNTER → 2022-09-07 | Outpatient (REF) | payer OTHER ==
[~2022-09-07] MED LIST changes: +ACET-683 PO
[2022-09-07 16:48] LABS: HEMATOCRIT 38.1 % (36.0-47.0); HEMOGLOBIN 12.1 g/dl (12.0-15.5); MEAN CORPUSCULAR HEMOGLOBIN 28.2 pg (27.0-33.0); MEAN CORPUSCULAR HGB CONC 31.8 g/dl (32.0-36.5); MEAN CORPUSCULAR VOLUME 88.8 fl (80.0-96.0); PLATELET COUNT, AUTOMATED 267 10^3/uL (150-450); RED BLOOD COUNT 4.29 10^6/uL (4.00-5.40); WHITE BLOOD COUNT 4.9 10^3/uL (4.0-10.0)
[2022-09-07 17:11] LABS: TOTAL 25(OH) VITAMIN D 25.2 NG/ML (20.0-100.0)
[2022-09-07 17:27] LABS: BLOOD UREA NITROGEN 15 MG/DL (9-23); CALCIUM LEVEL 8.4 MG/DL (8.5-10.1); CARBON DIOXIDE LEVEL 28 MMOL/L (20-31); CHLORIDE LEVEL 104 MMOL/L (98-107); CHOLESTEROL LEVEL 138 MG/DL (<200); CHOLESTEROL RISK RATIO 3.04 (<5); GLOMERULAR FILTRATION RATE > 60.0 (>60); GLUCOSE, FASTING 71 MG/DL (60-100); HDL CHOLESTEROL 45.3 MG/DL (>40); LDL CHOLESTEROL 79.1 MG/DL (<100); NON-HDL-C 92.7 MG/DL; POTASSIUM SERUM 4.2 MMOL/L (3.5-5.1); SODIUM LEVEL 138 MMOL/L (136-145); TRIGLYCERIDES LEVEL 68 MG/DL (<150)
== END ==
LOC: M LAB REF 16:13
PROVIDERS: ATTEND Physician Assistant
DX: Z13.220 Encounter for screening for lipoid disorders (principal); Z83.3 Family history of diabetes mellitus; Z13.1 Encounter for screening for diabetes mellitus; J45.20 Mild intermittent asthma, uncomplicated; E55.9 Vitamin D deficiency, unspecified

== ENCOUNTER → 2022-11-09 | Outpatient (CLI) | payer OTHER | LOC: M RAD 14:43 | PROVIDERS: ATTEND Obstetrics & Gynecology | DX: D21.9 Benign neoplasm of connective and other soft tissue, unspecified (principal) ==

== ENCOUNTER → 2022-12-11 | Day surgery (SDC) | payer OTHER ==
[~2022-12-11] VITALS: Ht 154.9 cm; Wt 79.4 kg
[~2022-12-11] MED LIST changes: +MIDAZOLAM INJ 2MG/2ML VIAL As Ordered ONE; +fentaNYL 100 MCG/2 ML INJECTION As Ordered ONE
== END | disposition home or self-care (01) ==
LOC: M SDC 12:31
PROVIDERS: ATTEND Obstetrics & Gynecology
DX: Z30.2 Encounter for sterilization (principal); Z53.09 Procedure and treatment not carried out because of other contraindication

== ENCOUNTER → 2023-01-15 | Outpatient (REF) | payer OTHER ==
[~2023-01-15] MED LIST changes: -MIDAZOLAM INJ 2MG/2ML VIAL As Ordered ONE; -fentaNYL 100 MCG/2 ML INJECTION As Ordered ONE
== END ==
LOC: M LAB REF 11:53
PROVIDERS: ATTEND Nurse Practitioner Family
DX: R30.0 Dysuria (principal)

== ENCOUNTER 2023-01-31 18:30 | Emergency (ER) | payer OTHER ==
[~2023-01-31] VITALS: Ht 154.9 cm; Wt 83.7 kg
[2023-01-31 19:53] LABS: BASO # 0.1 10^3/uL (0.0-0.2); BASO % 0.7 % (0.0-1.0); EOS # 0.7 10^3/uL (0.0-0.5); EOS % 9.1 % (0.0-3.0); HEMATOCRIT 40.4 % (36.0-47.0); HEMOGLOBIN 13.3 g/dl (12.0-15.5); LYMPH # 2.7 10^3/uL (1.5-5.0); LYMPH % 32.7 % (24.0-44.0); MEAN CORPUSCULAR HEMOGLOBIN 29.2 pg (27.0-33.0); MEAN CORPUSCULAR HGB CONC 32.9 g/dl (32.0-36.5); MEAN CORPUSCULAR VOLUME 88.6 fl (80.0-96.0); MONO # 0.6 10^3/uL (0.0-0.8); MONO % 7.3 % (2.0-8.0); NEUTROPHILS # 4.1 10^3/uL (1.5-8.5); PLATELET COUNT, AUTOMATED 301 10^3/uL (150-450); RED BLOOD COUNT 4.56 10^6/uL (4.00-5.40); WHITE BLOOD COUNT 8.1 10^3/uL (4.0-10.0)
[2023-01-31 20:04] LABS: BLOOD UREA NITROGEN 11 MG/DL (9-23); CALCIUM LEVEL 8.6 MG/DL (8.5-10.1); CARBON DIOXIDE LEVEL 27 MMOL/L (20-31); CHLORIDE LEVEL 105 MMOL/L (98-107); CREATININE FOR GFR 0.62 MG/DL (0.55-1.30); GLOMERULAR FILTRATION RATE > 60.0 (>60); GLUCOSE, FASTING 90 MG/DL (60-100); POTASSIUM SERUM 4.2 MMOL/L (3.5-5.1); SODIUM LEVEL 138 MMOL/L (136-145)
[2023-01-31 20:23] LABS: HCG, SERUM QUANTITATIVE 63729.8 MIU/ML (<4.2)
[2023-01-31 22:06] VITALS: BP 113/67; TEMP 97.7; O2SAT 99
== END 2023-01-31 22:08 | disposition home or self-care (01) ==
LOC: M ED 18:30
DX: O20.0 Threatened abortion (principal); Z3A.01 Less than 8 weeks gestation of pregnancy; Z91.013 Allergy to seafood

== ENCOUNTER → 2023-02-05 | Outpatient (CLI) | payer OTHER ==
[2023-02-05 15:44] LABS: HEMATOCRIT 38.9 % (36.0-47.0); HEMOGLOBIN 12.8 g/dl (12.0-15.5); MEAN CORPUSCULAR HEMOGLOBIN 29.2 pg (27.0-33.0); MEAN CORPUSCULAR HGB CONC 32.9 g/dl (32.0-36.5); MEAN CORPUSCULAR VOLUME 88.6 fl (80.0-96.0); PLATELET COUNT, AUTOMATED 280 10^3/uL (150-450); RED BLOOD COUNT 4.39 10^6/uL (4.00-5.40); WHITE BLOOD COUNT 7.9 10^3/uL (4.0-10.0)
[2023-02-05 16:51] LABS: HIV 1&2 SCREEN NEGATIVE (NEGATIVE)
[2023-02-05 16:58] LABS: HEPATITIS C VIRUS ABY INDEX 0.08 INDEX (<0.8)
[2023-02-05 17:02] LABS: GC DNA AMPLIFICATION NEGATIVE (NEGATIVE)
== END ==
LOC: M PLALAB 14:03
PROVIDERS: ATTEND Obstetrics & Gynecology
DX: O34.211 Maternal care for low transverse scar from previous cesarean delivery (principal); Z3A.00 Weeks of gestation of pregnancy not specified

== ENCOUNTER → 2023-02-22 | Outpatient (CLI) | payer OTHER | LOC: M PLALAB 14:39 | PROVIDERS: ATTEND Obstetrics & Gynecology | DX: Z34.91 Encounter for supervision of normal pregnancy, unspecified, first trimester (principal) ==

== ENCOUNTER 2023-03-01 06:45 | Emergency (ER) | payer OTHER ==
[~2023-03-01] VITALS: Ht 154.9 cm; Wt 83.1 kg
[2023-03-01] MEDS ORDERED: METOCLOPRAMIDE INJ 10MG/2ML VIAL IV ONE (07:35)
[2023-03-01] MEDS ORDERED: NS 1,000 ML IV ONE ×2 (07:35→10:10)
[2023-03-01 08:38] LABS: BASO % 0.3 % (0.0-1.0); EOS % 0.4 % (0.0-3.0); HEMATOCRIT 38.6 % (36.0-47.0); HEMOGLOBIN 13.2 g/dl (12.0-15.5); LYMPH # 0.4 10^3/uL (1.5-5.0); MEAN CORPUSCULAR HEMOGLOBIN 29.5 pg (27.0-33.0); MEAN CORPUSCULAR HGB CONC 34.2 g/dl (32.0-36.5); MEAN CORPUSCULAR VOLUME 86.4 fl (80.0-96.0); MONO # 0.2 10^3/uL (0.0-0.8); MONO % 2.5 % (2.0-8.0); NEUTROPHILS # 6.6 10^3/uL (1.5-8.5); NEUTROPHILS % 91.4 % (36.0-66.0); PLATELET COUNT, AUTOMATED 236 10^3/uL (150-450); RED BLOOD COUNT 4.47 10^6/uL (4.00-5.40); WHITE BLOOD COUNT 7.2 10^3/uL (4.0-10.0)
[2023-03-01 08:58] LABS: LIPASE 20 U/L (12-53)
[2023-03-01 09:00] LABS: ALKALINE PHOSPHATASE 65 U/L (46-116); ALT/SGPT 71 U/L (7.0-40); AST/SGOT 46 U/L (<34); BILIRUBIN,DIRECT 0.4 MG/DL (<0.4); BILIRUBIN,TOTAL 1.3 MG/DL (0.3-1.2); BLOOD UREA NITROGEN 10 MG/DL (9-23); CALCIUM LEVEL 7.9 MG/DL (8.5-10.1); CARBON DIOXIDE LEVEL 23 MMOL/L (20-31); CHLORIDE LEVEL 103 MMOL/L (98-107); CREATININE FOR GFR 0.37 MG/DL (0.55-1.30); GLOMERULAR FILTRATION RATE > 60.0 (>60); GLUCOSE, FASTING 97 MG/DL (60-100); POTASSIUM SERUM 3.4 MMOL/L (3.5-5.1); SODIUM LEVEL 135 MMOL/L (136-145); TOTAL PROTEIN 6.3 G/DL (5.7-8.2)
[2023-03-01] MEDS ORDERED: REGL10TA6 PO (11:31)
[2023-03-01 12:24] VITALS: BP 129/62; TEMP 98.3; O2SAT 100
== END 2023-03-01 12:43 | disposition home or self-care (01) ==
LOC: M ED 06:45
DX: O21.9 Vomiting of pregnancy, unspecified (principal); O98.511 Other viral diseases complicating pregnancy, first trimester; B34.8 Other viral infections of unspecified site; J45.909 Unspecified asthma, uncomplicated; Z3A.11 11 weeks gestation of pregnancy; Z79.899 Other long term (current) drug therapy; Z91.013 Allergy to seafood
CPT/HCPCS: 80048; 80076; 83690; 84702; 85025; 86850; 86900; 86901; 87040; 87486; 87581; 87633; 87798; 93041; 96361; 96374; 99285; J2765

== ENCOUNTER → 2023-05-11 | Outpatient (CLI) | payer OTHER ==
[~2023-05-11] MED LIST changes: +REGL10TA6 PO
== END ==
LOC: M WHC 10:16
PROVIDERS: ATTEND Advanced Practice Midwife
DX: Z34.92 Encounter for supervision of normal pregnancy, unspecified, second trimester (principal); Z3A.21 21 weeks gestation of pregnancy

== ENCOUNTER → 2023-06-30 | Outpatient (CLI) | payer OTHER | LOC: M PLALAB 06:51 | PROVIDERS: ATTEND Obstetrics & Gynecology | DX: O34.211 Maternal care for low transverse scar from previous cesarean delivery (principal); Z3A.00 Weeks of gestation of pregnancy not specified ==

== ENCOUNTER → 2023-07-12 | Outpatient (CLI) | payer OTHER ==
[2023-07-12 10:13] LABS: HEMATOCRIT 33.3 % (36.0-47.0); HEMOGLOBIN 10.5 g/dl (12.0-15.5); MEAN CORPUSCULAR HEMOGLOBIN 26.9 pg (27.0-33.0); MEAN CORPUSCULAR HGB CONC 31.5 g/dl (32.0-36.5); MEAN CORPUSCULAR VOLUME 85.4 fl (80.0-96.0); PLATELET COUNT, AUTOMATED 270 10^3/uL (150-450); WHITE BLOOD COUNT 8.1 10^3/uL (4.0-10.0)
== END ==
LOC: M PLALAB 08:42
PROVIDERS: ATTEND Obstetrics & Gynecology
DX: O34.211 Maternal care for low transverse scar from previous cesarean delivery (principal)

== ENCOUNTER 2023-08-21 12:49 | Outpatient (CLI) | payer OTHER ==
[~2023-08-21] VITALS: Ht 154.9 cm; Wt 100.0 kg
[2023-08-21] MEDS ORDERED: PRENMIS3 PO (12:56)
[2023-08-21] MEDS ORDERED: HOME MED LIST COMPLETE! XX SCH (13:00)
[2023-08-21 13:02] VITALS: BP 119/57
== END 2023-08-21 14:04 | disposition home or self-care (01) ==
LOC: M LDO 12:49
PROVIDERS: ATTEND Obstetrics & Gynecology
DX: O36.8130 Decreased fetal movements, third trimester, not applicable or unspecified (principal); Z3A.36 36 weeks gestation of pregnancy; O34.219 Maternal care for unspecified type scar from previous cesarean delivery; Z91.013 Allergy to seafood
CPT/HCPCS: 59025; 87081; G0463

== ENCOUNTER 2023-09-03 13:47 | Outpatient (CLI) | payer OTHER ==
[~2023-09-03] VITALS: Ht 154.9 cm; Wt 100.7 kg
[~2023-09-03 13:47] MED LIST changes: +PRENMIS3 PO
[2023-09-03 14:13] VITALS: BP 114/60
== END 2023-09-03 15:59 | disposition home or self-care (01) ==
LOC: M LDO 13:47
PROVIDERS: ATTEND Advanced Practice Midwife
DX: O47.1 False labor at or after 37 completed weeks of gestation (principal); O34.219 Maternal care for unspecified type scar from previous cesarean delivery; Z3A.37 37 weeks gestation of pregnancy
CPT/HCPCS: 59025; G0463

== ENCOUNTER 2023-09-11 07:47 | Inpatient (IN) | payer MEDICAID, OTHER ==
[2023-09-11] VITALS (25 sets, daily range): BP systolic 99–127; BP diastolic 49–69; O2SAT 97
[~2023-09-11] VITALS: Ht 154.9 cm; Wt 101.2 kg
[2023-09-11] MEDS ORDERED: HOME MED LIST COMPLETE! XX SCH (08:45)
[2023-09-11] MEDS ORDERED: LIDOCAINE 1% MDV 20ML VIAL INFIL PRN (08:45)
[2023-09-11] MEDS ORDERED: OXYTOCIN DRIP 30 UNITS in IV 1 EA IV PRN (08:45)
[2023-09-11 09:23] LABS: HEMATOCRIT 29.5 % (36.0-47.0); HEMOGLOBIN 9.1 g/dl (12.0-15.5); MEAN CORPUSCULAR HEMOGLOBIN 23.6 pg (27.0-33.0); MEAN CORPUSCULAR HGB CONC 30.8 g/dl (32.0-36.5); MEAN CORPUSCULAR VOLUME 76.4 fl (80.0-96.0); PLATELET COUNT, AUTOMATED 273 10^3/uL (150-450); RED BLOOD COUNT 3.86 10^6/uL (4.00-5.40); WHITE BLOOD COUNT 7.9 10^3/uL (4.0-10.0)
[2023-09-11] MEDS ORDERED: OXYTOCIN DRIP 30 UNITS in IV 1 EA IV SCH (09:25)
[2023-09-11] MEDS ORDERED: LR 1,000 ML IV SCH (09:25)
[2023-09-11] MEDS: OXYTOCIN DRIP 30 UNITS in IV 1 EA IV SCH (09:57)
[2023-09-11] MEDS: LR 1,000 ML IV SCH (09:57)
[2023-09-11 10:28] LABS: HEPATITIS C VIRUS ABY INDEX < 0.02 INDEX (<0.8)
[2023-09-11] MEDS ORDERED: ONDANSETRON 4MG 2ML VIAL IV PRN (12:30)
[2023-09-11] MEDS ORDERED: diphenhydrAMINE 50MG/ML VIAL IV PRN (12:30)
[2023-09-11] MEDS ORDERED: EPIDURAL/PCA KEYS XX PRN (12:30)
[2023-09-11] MEDS ORDERED: ePHEDrine SULFATE 25 MG/5 ML(5MG/ML) SYRINGE IVP PRN (12:30)
[2023-09-11] MEDS ORDERED: LR 500 ML IV PRN (12:30)
[2023-09-11] MEDS ORDERED: NALOXONE INJ 0.4MG/1ML VIAL IV PRN (12:30)
[2023-09-11] MEDS: FENTANYL/ROPIVACAINE/NACL BAG 100 ML EPIDURAL SCH (13:54)
[2023-09-11] MEDS ORDERED: RHO(D) IMMUNE GLOBULIN/MALTOSE 500MCG(2500IU)/2.2ML VIAL (WINRHO) IM SCH (16:35)
[2023-09-11] MEDS ORDERED: DIBUCAINE 1% OINTMENT 30GM TOP PRN (16:35)
[2023-09-11] MEDS ORDERED: METHYLERGONOVINE MALEATE 0.2 MG TAB PO PRN (16:35)
[2023-09-11] MEDS ORDERED: ACETAMINOPHEN TAB 650MG DOSE (2X325MG) PO PRN (16:35)
[2023-09-11] MEDS: IBUPROFEN 600MG TAB PO PRN (22:07)
[2023-09-12] MEDS: ACETAMINOPHEN 500 MG TAB PO PRN (01:03)
[2023-09-12 06:00] VITALS: BP 110/61; O2SAT 97
[2023-09-12] MEDS: PRENATAL VITAMINS CHEWABLE TABLET PO SCH (08:46)
[2023-09-12 18:00] VITALS: BP 120/62; O2SAT 99
[2023-09-13] MEDS: IBUPROFEN 800 MG TAB PO PRN (02:36)
[2023-09-13 06:00] VITALS: BP 124/62; O2SAT 98
[2023-09-13] MEDS: DOCUSATE SODIUM 100MG CAPSULE PO PRN (08:23)
[2023-09-13 08:35] VITALS: BP 124/62; TEMP 97.7; O2SAT 98
[2023-09-13] MEDS ORDERED: MEASLES,MUMPS,RUBELLA VACCINE INJ (MMR-II) SC.IMMUN ONE (09:00)
[2023-09-13] MEDS: medroxyPROGESTERone ACET IM SUSP 150 MG/ML VIAL IM ONE (11:33)
== END 2023-09-13 13:00 | disposition home or self-care (01) | DRG 560 ==
LOC: M LDI 07:47 → M OBS 20:00
PROVIDERS: ADMIT Specialist; ATTEND Specialist
PROC: 10E0XZZ Delivery of Products of Conception, External Approach (ICD-10-PCS; principal; 2023-09-11)
PROC: 10907ZC Drainage of Amniotic Fluid, Therapeutic from Products of Conception, Via Natural or Artificial Opening (ICD-10-PCS; 2023-09-11)
PROC: 3E033VJ Introduction of Other Hormone into Peripheral Vein, Percutaneous Approach (ICD-10-PCS; 2023-09-11)
DX: O34.211 Maternal care for low transverse scar from previous cesarean delivery (principal); Z37.0 Single live birth; Z3A.39 39 weeks gestation of pregnancy

== ENCOUNTER → 2023-09-23 | Outpatient (CLI) | payer MEDICAID | LOC: M WUC 13:09 | PROVIDERS: ATTEND Physician Assistant | DX: Z11.7 Encounter for testing for latent tuberculosis infection (principal); Z76.89 Persons encountering health services in other specified circumstances ==

== ENCOUNTER 2023-11-12 07:26 | Day surgery (SDC) | payer OTHER ==
[~2023-11-12] VITALS: Ht 154.9 cm; Wt 94.8 kg
[~2023-11-12 07:26] MED LIST changes: +LR 1,000 ML IV SCH; +VENTAER INH
[2023-11-12] MEDS ORDERED: MIDAZOLAM INJ 2MG/2ML VIAL As Ordered ONE (08:05)
[2023-11-12] MEDS ORDERED: ROCURONIUM BROMIDE 50MG/5ML VIAL As Ordered ONE (08:05)
[2023-11-12] MEDS ORDERED: LIDOCAINE 2% 100MG/5ML SDV (FOR ANES.) As Ordered ONE (08:05)
[2023-11-12] MEDS ORDERED: fentaNYL 100 MCG/2 ML INJECTION As Ordered ONE (08:05)
[2023-11-12] MEDS ORDERED: propofoL 200 MG/20 ML VIAL As Ordered ONE (08:06)
[2023-11-12] MEDS ORDERED: ACETAMINOPHEN 1000MG 100ML IV BAG As Ordered ONE (08:09)
[2023-11-12] MEDS ORDERED: SILVER NITRATE APPLICATOR (1 = QTY 10) As Ordered ONE (08:45)
[2023-11-12] MEDS ORDERED: ONDANSETRON 4MG 2ML VIAL As Ordered ONE (09:12)
[2023-11-12] MEDS ORDERED: SUGAMMADEX SODIUM 500 MG/5 ML VIAL (BRIDION) As Ordered ONE (09:12)
[2023-11-12 16:39] LABS: HEMATOCRIT 37.5 % (36.0-47.0); HEMOGLOBIN 11.8 g/dl (12.0-15.5); MEAN CORPUSCULAR HEMOGLOBIN 24.9 pg (27.0-33.0); MEAN CORPUSCULAR HGB CONC 31.5 g/dl (32.0-36.5); MEAN CORPUSCULAR VOLUME 79.1 fl (80.0-96.0); PLATELET COUNT, AUTOMATED 292 10^3/uL (150-450); RED BLOOD COUNT 4.74 10^6/uL (4.00-5.40); WHITE BLOOD COUNT 5.8 10^3/uL (4.0-10.0)
== END 2023-11-12 12:15 | disposition home or self-care (01) ==
LOC: M SDC 07:26
PROVIDERS: ATTEND Obstetrics & Gynecology
DX: Z30.2 Encounter for sterilization (principal); J45.909 Unspecified asthma, uncomplicated; Z79.51 Long term (current) use of inhaled steroids; Z91.013 Allergy to seafood; F41.9 Anxiety disorder, unspecified
CPT/HCPCS: 58661; 85027; 86850; 86900; 86901; 88302; J0131; J0665; J1100; J2250; J2405; J3010

== ENCOUNTER → 2023-12-15 | Outpatient (REF) | payer OTHER ==
[~2023-12-15] MED LIST changes: -LR 1,000 ML IV SCH
== END ==
LOC: M LAB REF 16:09
PROVIDERS: ATTEND Physician Assistant
DX: J02.9 Acute pharyngitis, unspecified (principal); R50.9 Fever, unspecified; R51.9 Headache, unspecified

== ENCOUNTER → 2024-01-19 | Outpatient (CLI) | payer OTHER ==
[2024-01-19 18:28] LABS: HEMATOCRIT 34.7 % (36.0-47.0); HEMOGLOBIN 10.9 g/dl (12.0-15.5); MEAN CORPUSCULAR HEMOGLOBIN 25.1 pg (27.0-33.0); MEAN CORPUSCULAR HGB CONC 31.4 g/dl (32.0-36.5); MEAN CORPUSCULAR VOLUME 79.8 fl (80.0-96.0); PLATELET COUNT, AUTOMATED 336 10^3/uL (150-450); RED BLOOD COUNT 4.35 10^6/uL (4.00-5.40); WHITE BLOOD COUNT 7.8 10^3/uL (4.0-10.0)
[2024-01-19 18:35] LABS: ERYTHROCYTE SEDIMENTATION RATE 19 mm/hr (0-20)
[2024-01-19 18:59] LABS: ALBUMIN 3.1 G/DL (3.2-5.2); ALKALINE PHOSPHATASE 106 U/L (46-116); ALT/SGPT 23 U/L (7.0-40); AST/SGOT 13 U/L (<34); BILIRUBIN,TOTAL 0.3 MG/DL (0.3-1.2); BLOOD UREA NITROGEN 11 MG/DL (9-23); CALCIUM LEVEL 8.8 MG/DL (8.5-10.1); CARBON DIOXIDE LEVEL 26 MMOL/L (20-31); CHLORIDE LEVEL 106 MMOL/L (98-107); CREATININE FOR GFR 0.52 MG/DL (0.55-1.30); GLOMERULAR FILTRATION RATE > 60.0 (>60); GLUCOSE, FASTING 105 MG/DL (60-100); MAGNESIUM LEVEL 1.8 MG/DL (1.8-2.4); POTASSIUM SERUM 3.8 MMOL/L (3.5-5.1); SODIUM LEVEL 138 MMOL/L (136-145); TOTAL PROTEIN 6.8 G/DL (5.7-8.2)
[2024-01-19 19:00] LABS: RHEUMATOID FACTOR QUANT 3.8 IU/ML (<14); THYROID STIMULATING HORMONE 1.834 uIU/ML (0.55-4.78)
[2024-01-19 19:01] LABS: VITAMIN B12 LEVEL 370 PG/ML (211-911)
== END ==
LOC: M WUC 15:17
PROVIDERS: ATTEND Physician Assistant
DX: M25.50 Pain in unspecified joint (principal); R20.2 Paresthesia of skin; R60.9 Edema, unspecified

== ENCOUNTER → 2024-02-28 | Outpatient (REF) | payer OTHER ==
[2024-02-28 18:25] LABS: BASO % 0.7 % (0.0-1.0); EOS # 0.5 10^3/uL (0.0-0.5); EOS % 8.6 % (0.0-3.0); HEMATOCRIT 34.3 % (36.0-47.0); HEMOGLOBIN 10.6 g/dl (12.0-15.5); LYMPH # 2.2 10^3/uL (1.5-5.0); MEAN CORPUSCULAR HEMOGLOBIN 23.7 pg (27.0-33.0); MEAN CORPUSCULAR HGB CONC 30.9 g/dl (32.0-36.5); MEAN CORPUSCULAR VOLUME 76.6 fl (80.0-96.0); MONO # 0.4 10^3/uL (0.0-0.8); NEUTROPHILS # 2.7 10^3/uL (1.5-8.5); NEUTROPHILS % 46.4 % (36.0-66.0); PLATELET COUNT, AUTOMATED 354 10^3/uL (150-450); RED BLOOD COUNT 4.48 10^6/uL (4.00-5.40); WHITE BLOOD COUNT 5.8 10^3/uL (4.0-10.0)
[2024-02-28 18:28] LABS: PERCENT SATURATION 4.6 % (13.2-45.0)
[2024-02-28 18:31] LABS: FERRITIN 3.8 NG/ML (7.3-270.7)
== END ==
LOC: M LAB REF 16:51
PROVIDERS: ATTEND Physician Assistant
DX: D64.9 Anemia, unspecified (principal)

== ENCOUNTER → 2024-04-14 | Outpatient (CLI) | payer OTHER | LOC: M RAD 11:12 | PROVIDERS: ATTEND Obstetrics & Gynecology | DX: N93.9 Abnormal uterine and vaginal bleeding, unspecified (principal) ==